=== PATIENT | female | born 1975 | race Caucasian/White ===

== ENCOUNTER 2021-08-19 20:43 | Inpatient (IN) ==
[2021-08-19] MEDS ORDERED: dexAMETHasone**PF** 10 MG/ML VIAL IV ONE (21:00)
[2021-08-19] MEDS ORDERED: IPRATROPIUM BROMIDE/ALBUTEROL respimat INH INH STA (21:00)
[2021-08-19] MEDS ORDERED: SODIUM CHLORIDE 0.9% 1000ML 2,000 ML IV ONE (21:00)
[2021-08-19] MEDS ORDERED: guaiFENesin 600 MG TABCR PO STA (21:02)
--- NOTE | 2021-08-19 21:14 | Emergency Department Note ---
Impression & Plan Pneumonia due to 2019-nCoV, Acute respiratory failure with hypoxia, Hypokalemia ED Provider Note NAME: ELIO ARNOLD AGE: 45 SEX: F ARRIVES VIA: Walk-In INFORMANT: Patient, ED PROVIDER(S): Korey Pena MD CHIEF COMPLAINT: Covid-19, shortness of breath. PLAN: Disposition: Admit MEDICAL DECISION MAKING: The patient is a pleasant 45-year-old woman with a past history of asthma and environmental allergies who presents to emergency department with worsening shortness of breath and generalized weakness with decreased appetite and oral intake in setting of being diagnosed with COVID-19 on Wednesday after developing symptoms on . She reports having frequent episodes of diarrhea but denies vomiting. 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 She is not vaccinated for Covid. On arrival the patient is ill-appearing, afebrile, hypoxic in the low 70s on room air and initially hypotensive in triage at 60s/30s but this improved upon arrival to the ED critical care bay when on the stretcher and was normal. Lungs with scant intermittent wheezes and rhonchi. She has central cyanosis with elizabeth-oral cyanosis. She has no significant increased work of breathing. Abdomen is benign. The patient was placed on oxy-mask with improvement in O2 saturation to low 90s. WBC, H/H and platelets limits. Chemistry without metabolic acidosis. Lactic acid 1.3, within normal limits. Potassium 2.8 with patient initiated. Electrolytes and LFTs otherwise unremarkable. Troponin negative/undetectable. B PRICING LEAD within limits. Lipase is not elevated. TSH is low at 0.283 but with free T4 within normal limits. COVID-19 was confirmed positive on PCR. EKG without overt acute ischemia. Chest x-ray demonstrates bilateral multifocal densities consistent with with multifocal pneumonia/COVID-19 pneumonia. This is further characterized on CTA of the chest per preliminary stat rad report. Note is made of an apparent filling defect of a segmental branch of the right upper lobe however suspected to be artifactual. Moreover, given the patient's troponin and BNP are not elevated unlikely to have clinically significant PE. Hypoxia is most likely related to the patient's COVID-19 pneumonia. Upon reevaluation the patient reported feeling somewhat improved after initial review with IV fluid patient and, Dex Methasone known, albuterol. However her O2 saturation was noted to drift down to the mid 80s at times and so she was placed on BiPAP with improvement in her oxygenation. Patient was in agreement with plan for admission. [facility]. Triage Nursing notes reviewed and agree them. Prior medical records reviewed Vital Signs: reviewed and remarkable for hypoxia. Differential diagnosis: Reactive airway disease, pneumonia, pneumothorax, COPD, CHF, infections, cardiac ischemia, pulmonary embolism, musculoskeletal, gastrointestinal, as well as other pathologies. ER treatment provided: See below. Diagnostics interpreted by me: ECG: Normal sinus rhythm, 85 bpm, no ectopy, no overt ST elevation or depress ion, QTC 476, QRS 88. Cardiac Monitoring: An order for continuous cardiac monitoring was placed and demonstrated normal sinus rhythm, 85 bpm, no ectopy. Laboratory studies: See below Imaging studies: CXR: Multifocal PNA per my preliminary review. STATRAD: Preliminary Findings Only See Final Report For Complete Findings CTA CHEST: No pulmonary embolus. An apparent filling defect of a segmental branch of the right upper lobe (series 4 image 163) is artifactual given the appearance of the reformats (series 400 image 48 and series 402 image 38). No aortic aneurysm or dissection. Diffuse bilateral airspace opacities most consistent with atypical infection. Bilateral hilar lymphadenopathy measures up to 0.8 cm, this is nonspecific but likely reactive. The heart size is within normal limits. No fracture. There is a small hiatal hernia. Radiologist: Mignon Lopez MD Study ready at 22:09 and initial results transmitted at 22:32 Consultation(s): Case was discussed with Dr. Anderson, [facility] hospitalist, who will evaluate the patient for admission. HPI: The patient is a pleasant 45-year-old woman with a past history of asthma and environmental allergies who presents to emergency department with worsening shortness of breath and generalized weakness with decreased appetite and oral intake in setting of being diagnosed with COVID-19 on Wednesday after developing symptoms on . She reports having frequent episodes of diarrhea but denies vomiting. 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 She is not vaccinated for Covid. ROS: See above HPI for pertinent positives & negatives. A total of 10 systems reviewed and were otherwise negative. PAST MEDICAL HISTORY:See Below PAST SURGICAL HISTORY:See Below FAMILY HISTORY:See Below SOCIAL HISTORY:See Below HOME MEDICATIONS:See Below ALLERGIES:See Below VITALS:See Below PHYSICAL EXAMINATION: GENERAL: Awake, alert, ill-appearing, in no distress HENT: Normocephalic, atraumatic. Oropharynx mucous membranes. Central cyanosis/perioral cyanosis. EYES: Normal conjunctiva. Sclera non-icteric. NECK: Supple. No nuchal rigidity. FROM. No JVD. RESPIRATORY: Scant intermittent wheezes and rhonchi. CARDIAC: Regular rate, normal rhythm. Extremities warm and well perfused. Pulses equal. ABDOMEN: Soft, non-distended. No tenderness to palpation. No rebound or guarding. No masses. RECTAL: Deferred. MUSCULOSKELETAL: Chest examination reveals no tenderness. The back is symmetrical on inspection without obvious abnormality. There is no CVA tendernes s to palpation. No joint edema. LOWER EXTREMITIES: Calves are equal size bilaterally and non-tender. No edema. No discoloration. NEURO: Normal sensorium. No sensory or motor deficits noted. SKIN: No rash or jaundice noted. ED Course: Critical Care: I have personally spent greater than 75 minutes of critical care time in the direct management of this patient. This includes bedside care, interpretation of diagnostic studies, and testing, discussion with consultants, patient, and family members, and other required patient management activities. This 75 mi nutes is in excess of all separately billable procedures. 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 Beliefs That Will Affect Care: None Current Living Situation: Spouse Other Information That Helps Us Care for You: No Feels Safe at Home: Yes Safety Concerns: Feels Safe At This Time Assistive Devices: Oxygen - Continuous Assistive Devices Comment: new due to current admition Allergies Allergies Allergy/AdvReac Type Severity Reaction Status Date / Time No Known Allergies Allergy Unknown Verified 08/19/21 21:35 cefuroxime AdvReac Mild HEADACHE Verified 08/19/21 21:35 Home Meds Home Medications Medication Instructions Recorded Confirmed albuterol sulfate 90 mcg/actuation 1 inh INHALATION Q4H PRN 08/19/21 08/19/21 aerosol inhaler (ProAir HFA) aspirin 81 mg tablet,delayed 81 mg PO QAM 08/19/21 08/19/21 release (Aspirin Low Dose) fluticasone furoate 100 1 inh INHALATION QAM 08/19/21 08/19/21 mcg-vilanterol 25 mcg/dose inhalation powder (Breo Ellipta) losartan 25 mg tablet (Cozaar) 25 mg PO QAM 08/19/21 08/19/21 omeprazole 20 mg tablet,delayed 20 mg PO QAM 08/19/21 08/19/21 release venlafaxine 75 mg capsule,extended 75 mg PO QAM 08/19/21 08/19/21 release 24 hr (Effexor XR) Results & Data (ED) Vital Signs Vital Signs - 24 hr 08/19/21 20:49 08/19/21 20:59 08/19/21 21:28 Temperature 36.6 C Temperature Source Temporal Artery Scan Pulse Rate 83 84 89 Pulse Rate from SpO2 Sensor 85 Respiratory Rate 20 35 H 39 H Respiratory Effort / Characteristics Non-Labored Respiratory Depth Normal Respiratory Pattern Regular Blood Pressure 61/30 L 132/80 Blood Pressure Mean 40 97 Pulse Oximetry 77 L 90 91 Oxygen Delivery Method Room Air Oxymask Oxygen Flow Rate 10 10 Fraction of Inspired Oxygen Sepsis Recent Fever Within 48 Hours No Sepsis New/Unexplained Change in Mental Status N/A Sepsis Action Taken by Nursing No Action Required Oxygen Flow Rate - Titration Pulse Oximetry Post Tiitration 08/19/21 22:02 08/19/21 22:31 08/19/21 22:43 Temperature Temperature Source Pulse Rate 94 H 95 H Pulse Rate from SpO2 Sensor 95 H 96 H Respiratory Rate 35 H 35 H Respiratory Effort / Characteristics Respiratory Depth Respiratory Pattern Blood Pressure 129/67 136/79 Blood Pressure Mean 87 98 Pulse Oximetry 93 92 90 Oxygen Delivery Method Oxymask Oxygen Flow Rate 10 10 10 Fraction of Inspired Oxygen Sepsis Recent Fever Within 48 Hours Sepsis New/Unexplained Change in Mental Status Sepsis Action Taken by Nursing Oxygen Flow Rate - Titration Pulse Oximetry Post Tiitration 08/19/21 22:59 08/19/21 23:00 08/19/21 23:30 Temperature Temperature Source Pulse Rate 91 H 91 H 103 H Pulse Rate from SpO2 Sensor 91 H 109 H Respiratory Rate 37 H 32 H 38 H Respiratory Effort / Characteristics Spontaneous Labored Short of Breath SOB on Exertion Respiratory Depth Shallow Respiratory Pattern Tachypnea Blood Pressure 120/68 126/79 Blood Pressure Mean 85 94 Pulse Oximetry 95 95 88 L Oxygen Delivery Method Oxymask Oxygen Flow Rate 10 Fraction of Inspired Oxygen 50 Sepsis Recent Fever Within 48 Hours Sepsis New/Unexplained Change in Mental Status Sepsis Action Taken by Nursing Oxygen Flow Rate - Titration 15 Pulse Oximetry Post Tiitration 91 Laboratory Data Attestation: I reviewed the patient's lab results. Result diagrams: 08/19/21 21:07 08/19/21 21:07 Lab Results 08/19/21 08/19/21 08/19/21 Range/Units 21:07 21:07 21:07 WBC 8.91 (4.8-10.8) K/uL RBC 4.97 (4.2-5.4) M/uL Hgb 12.2 (12.0-16.0) g/dL Hct 38.7 (37-47) % MCV 77.9 L (80-100) fL MCH 24.5 L (25-34) pg MCHC 31.5 L (32-36) g/dL RDW Std Deviation 42.6 (36.4-46.3) fL RDW Coeff of Patrica 14.9 H (11.5-14.5) % Plt Count 273 (130-400) K/uL MPV 9.6 (7.4-10.4) fL Immature Gran % (Auto) 0.2 % Neut % (Auto) 83.7 % Lymph % (Auto) 13.9 % Ashe % (Auto) 2.1 % Eos % (Auto) 0.0 % Baso % (Auto) 0.1 % Neut # (Auto) 7.45 H (1.4-6.5) K/uL Lymph # (Auto) 1.24 (1.2-3.4) K/uL Ashe # (Auto) 0.19 (0.11-0.59) K/uL Eos # (Auto) 0.00 (0-0.5) K/uL Baso # (Auto) 0.01 (0-0.2) K/uL Immature Gran # (Auto) 0.02 (0.00-0.02) K/uL PT 10.3 (9.0-12.0) Seconds INR 1.0 (0.9-1.1) APTT 36.4 H (21.0-31.0) Seconds PTT Ratio 1.4 Sodium 132 L (136-145) mmol/L Potassium 2.8 L (3.5-5.1) mmol/L Chloride 93 L (98-107) mmol/L Carbon Dioxide 31 (21-32) mmol/L Anion Gap 8.0 (3-11) BUN 6 L (7-18) mg/dl Creatinine 0.96 (0.6-1.2) mg/dl Est Cr Clr Drug Dosing 79.1 ml/min Est GFR ( Amer) 83.4 ml/min Est GFR (Non-Af Amer) 71.9 ml/min BUN/Creatinine Ratio 6.1 L (10-20) Glucose 123 H (70-99) mg/dl Lactate (0.4-2.0) mmol/L Calcium 8.5 (8.5-10.1) mg/dl Phosphorus 2.6 (2.5-4.9) mg/dl Magnesium 2.4 (1.8-2.4) mg/dl Total Bilirubin 0.3 (0.2-1) mg/dl Direct Bilirubin 0.1 (0-0.2) mg/dl AST 36 (15-37) U/L ALT 16 (12-78) U/L Alkaline Phosphatase 99 (45-117) U/L Troponin I < 0.015 (0-0.045) ng/ml NT-Pro-B Natriuret Pep 279 (0-450) pg/ml Total Protein 8.0 (6.4-8.2) gm/dl Albumin 3.0 L (3.4-5.0) gm/dl Globulin 5.0 H (2.5-4.0) gm/dl Albumin/Globulin Ratio 0.6 L (0.9-2) Lipase 338 (73-393) U/L TSH 0.283 L (0.300-4.500) uIu/ml Free T4 1.52 (0.8-1.6) ng/dl HCG, Qual (Negative) COVID-19 Eval Order SARS-CoV-2 (PCR) (Negative) 08/19/21 08/19/21 08/19/21 Range/Units 21:07 21:07 21:07 WBC (4.8-10.8) K/uL RBC (4.2-5.4) M/uL Hgb (12.0-16.0) g/dL Hct (37-47) % MCV (80-100) fL MCH (25-34) pg MCHC (32-36) g/dL RDW Std Deviation (36.4-46.3) fL RDW Coeff of Patrica (11.5-14.5) % Plt Count (130-400) K/uL MPV (7.4-10.4) fL Immature Gran % (Auto) % Neut % (Auto) % Lymph % (Auto) % Ashe % (Auto) % Eos % (Auto) % Baso % (Auto) % Neut # (Auto) (1.4-6.5) K/uL Lymph # (Auto) (1.2-3.4) K/uL Ashe # (Auto) (0.11-0.59) K/uL Eos # (Auto) (0-0.5) K/uL Baso # (Auto) (0-0.2) K/uL Immature Gran # (Auto) (0.00-0.02) K/uL PT (9.0-12.0) Seconds INR (0.9-1.1) APTT (21.0-31.0) Seconds PTT Ratio Sodium (136-145) mmol/L Potassium (3.5-5.1) mmol/L Chloride (98-107) mmol/L Carbon Dioxide (21-32) mmol/L Anion Gap (3-11) BUN (7-18) mg/dl Creatinine (0.6-1.2) mg/dl Est Cr Clr Drug Dosing ml/min Est GFR ( Amer) ml/min Est GFR (Non-Af Amer) ml/min BUN/Creatinine Ratio (10-20) Glucose (70-99) mg/dl Lactate 1.3 (0.4-2.0) mmol/L Calcium (8.5-10.1) mg/dl Phosphorus (2.5-4.9) mg/dl Magnesium (1.8-2.4) mg/dl Total Bilirubin (0.2-1) mg/dl Direct Bilirubin (0-0.2) mg/dl AST (15-37) U/L ALT (12-78) U/L Alkaline Phosphatase (45-117) U/L Troponin I (0-0.045) ng/ml NT-Pro-B Natriuret Pep (0-450) pg/ml Total Protein (6.4-8.2) gm/dl Albumin (3.4-5.0) gm/dl Globulin (2.5-4.0) gm/dl Albumin/Globulin Ratio (0.9-2) Lipase (73-393) U/L TSH (0.300-4.500) uIu/ml Free T4 (0.8-1.6) ng/dl HCG, Qual Negative (Negative) COVID-19 Eval Order Covid19 at [facility] SARS-CoV-2 (PCR) (Negative) 08/19/21 Range/Units 21:07 WBC (4.8-10.8) K/uL RBC (4.2-5.4) M/uL Hgb (12.0-16.0) g/dL Hct (37-47) % MCV (80-100) fL MCH (25-34) pg MCHC (32-36) g/dL RDW Std Deviation (36.4-46.3) fL RDW Coeff of Patrica (11.5-14.5) % Plt Count (130-400) K/uL MPV (7.4-10.4) fL Immature Gran % (Auto) % Neut % (Auto) % Lymph % (Auto) % Ashe % (Auto) % Eos % (Auto) % Baso % (Auto) % Neut # (Auto) (1.4-6.5) K/uL Lymph # (Auto) (1.2-3.4) K/uL Ashe # (Auto) (0.11-0.59) K/uL Eos # (Auto) (0-0.5) K/uL Baso # (Auto) (0-0.2) K/uL Immature Gran # (Auto) (0.00-0.02) K/uL PT (9.0-12.0) Seconds INR (0.9-1.1) APTT (21.0-31.0) Seconds PTT Ratio Sodium (136-145) mmol/L Potassium (3.5-5.1) mmol/L Chloride (98-107) mmol/L Carbon Dioxide (21-32) mmol/L Anion Gap (3-11) BUN (7-18) mg/dl Creatinine (0.6-1.2) mg/dl Est Cr Clr Drug Dosing ml/min Est GFR ( Amer) ml/min Est GFR (Non-Af Amer) ml/min BUN/Creatinine Ratio (10-20) Glucose (70-99) mg/dl Lactate (0.4-2.0) mmol/L Calcium (8.5-10.1) mg/dl Phosphorus (2.5-4.9) mg/dl Magnesium (1.8-2.4) mg/dl Total Bilirubin (0.2-1) mg/dl Direct Bilirubin (0-0.2) mg/dl AST (15-37) U/L ALT (12-78) U/L Alkaline Phosphatase (45-117) U/L Troponin I (0-0.045) ng/ml NT-Pro-B Natriuret Pep (0-450) pg/ml Total Protein (6.4-8.2) gm/dl Albumin (3.4-5.0) gm/dl Globulin (2.5-4.0) gm/dl Albumin/Globulin Ratio (0.9-2) Lipase (73-393) U/L TSH (0.300-4.500) uIu/ml Free T4 (0.8-1.6) ng/dl HCG, Qual (Negative) COVID-19 Eval Order SARS-CoV-2 (PCR) POSITIVE A* (Negative) Administered Medications Discontinued Medications Albuterol (Ipratropium [place]/Albuterol Respimat Inh) 2 puffs INH NOW STA Stop: 08/19/21 21:01 Last Admin: 08/19/21 21:12 Dose: 2 puffs Documented by: [id number] Dexamethasone Sodium Phosphate (DexamethasonePf 10 Mg/Ml Vial) 10 mg IV NOW ONE Stop: 08/19/21 21:01 Last Admin: 08/19/21 21:22 Dose: 10 mg Documented by: [id number] Guaifenesin (Guaifenesin 600 Mg Tabcr) 600 mg PO NOW STA Stop: 08/19/21 21:03 Last Admin: 08/19/21 21:11 Dose: 600 mg Documented by: [id number] Sodium Chloride (Nss 1000ml) 2,000 mls @ 999 mls/hr IV .Q2H1M ONE Stop: 08/19/21 23:00 Last Admin: 08/19/21 21:15 Dose: 999 mls/hr Documented by: [id number] Potassium Chloride (K Armaan / Wtr) 10 meq in 100 mls @ 100 mls/hr IV Q1H MARTINEZ Stop: 08/20/21 00:44 Last Admin: 08/20/21 00:24 Dose: 100 mls/hr Documented by: [id number] Infusion: 08/19/21 23:50 Dose: 100 mls/hr Documented by: [id number] Admin: 08/19/21 22:50 Dose: 100 mls/hr Documented by: [id number] Remdesivir 200 mg/ Sodium (Chloride) 250 mls @ 125 mls/hr IV ONE STA; Protocol Stop: 08/20/21 01:44 Last Admin: 08/20/21 00:38 Dose: 125 mls/hr Documented by: [id number] Ioversol (Optiray 320 125ml) 120 ml IV ONCE ONE Stop: 08/19/21 21:57 Last Admin: 08/19/21 21:57 Dose: 120 ml Documented by: [id number] Potassium Chloride (Potassium Chloride Crtab 20 Meq Tabcr) 40 meq PO NOW STA Stop: 08/19/21 23:46 Last Admin: 08/20/21 00:24 Dose: 40 meq Documented by: [id number] Discharge Plan Visit Data Chief Complaint: Shortness of Breath/Dyspnea Stated Complaint: SHORTNESS OF BREATH ED Provider: Korey Pena Discharge Problem: Pneumonia due to 2019-nCoV, Acute respiratory failure with hypoxia, Hypokalemia Patient Disposition: Admitted As Inpatient Discharge Instructions Interventions: ED Discharge Assessment Last Done: 08/20/21 02:03
[2021-08-19 21:18] LABS: Basophils # (auto) 0.01 K/uL (0-0.2); Basophils % (auto) 0.1 %; Hematocrit (blood only) 38.7 % (37-47); Hemoglobin 12.2 g/dL (12.0-16.0); Immature Granulocytes # (auto) 0.02 K/uL (0.00-0.02); Immature Granulocytes % (auto) 0.2 %; Lymphocytes # (auto) 1.24 K/uL (1.2-3.4); Lymphocytes % (auto) 13.9 %; Mean Corpuscular Hemoglobin 24.5 pg (25-34); Mean Corpuscular Hgb Conc 31.5 g/dL (32-36); Mean Corpuscular Volume 77.9 fL (80-100); Mean Platelet Volume 9.6 fL (7.4-10.4); Monocytes # (auto) 0.19 K/uL (0.11-0.59); Monocytes % (auto) 2.1 %; Neutrophils # (auto) 7.45 K/uL (1.4-6.5); Neutrophils % (auto) 83.7 %; Platelet Count 273 K/uL (130-400); RDW Coefficient of Variation 14.9 % (11.5-14.5); RDW Standard Deviation 42.6 fL (36.4-46.3); Red Blood Count 4.97 M/uL (4.2-5.4); White Blood Count 8.91 K/uL (4.8-10.8)
[2021-08-19 21:29] LABS: Partial Thromboplastin Ratio 1.4; Partial Thromboplastin Time 36.4 Seconds (21.0-31.0); Prothrombin Time 10.3 Seconds (9.0-12.0)
[2021-08-19 21:37] LABS: Alanine Aminotransferase 16 U/L (12-78); Aspartate Aminotransferase 36 U/L (15-37); BUN Creatinine Ratio 6.1 (10-20); Bilirubin Direct 0.1 mg/dl (0-0.2); Blood Urea Nitrogen 6 mg/dl (7-18); Calcium 8.5 mg/dl (8.5-10.1); Carbon Dioxide 31 mmol/L (21-32); Chloride 93 mmol/L (98-107); Creatinine Clr Calc Pharmacy 79.1 ml/min; Est GFR (African American) 83.4 ml/min; Est GFR (Non-African American) 71.9 ml/min; Glucose 123 mg/dl (70-99); Lipase 338 U/L (73-393); Magnesium 2.4 mg/dl (1.8-2.4); Potassium 2.8 mmol/L (3.5-5.1); Sodium 132 mmol/L (136-145)
[2021-08-19 21:40] LABS: Pregnancy Test, Serum Negative (Negative)
[2021-08-19 21:45] LABS: Albumin Globulin Ratio 0.6 (0.9-2); Alkaline Phosphatase 99 U/L (45-117); Bilirubin,Total 0.3 mg/dl (0.2-1); Phosphorus 2.6 mg/dl (2.5-4.9); Thyroid Stimulating Hormone 0.283 uIu/ml (0.300-4.500); Troponin I < 0.015 ng/ml (0-0.045)
[2021-08-19] MEDS ORDERED: OPTIRAY 320 125ml IV ONE (21:56)
[2021-08-19 21:58] LABS: T4 Free Thyroxine 1.52 ng/dl (0.8-1.6)
[2021-08-19] MEDS: POTASSIUM CHLORIDE / WTR 10 MEQ/100 ML PLCT IV SCH (22:50)
[2021-08-19 23:03] LABS: NT Pro B Type Natriuretic Pept 279 pg/ml (0-450)
[2021-08-19] MEDS ORDERED: REMDESIVIR 200 MG in SODIUM CHLORIDE 0.9% 210 ML IV STA (23:45)
[2021-08-19] MEDS ORDERED: POTASSIUM CHLORIDE CRTAB 20 MEQ TABCR PO STA (23:45)
[2021-08-19] MEDS ORDERED: POTASSIUM CHLORIDE / WTR 10 MEQ/100 ML PLCT IV STA (23:45)
[2021-08-20] MEDS: POTASSIUM CHLORIDE / WTR 10 MEQ/100 ML PLCT IV SCH ×5 (00:24→09:24)
--- NOTE | 2021-08-20 01:47 | History and Physical Report ---
DATE OF ADMISSION: 08/19/2021. CHIEF COMPLAINT: COVID pneumonia, acute respiratory distress. HISTORY OF PRESENT ILLNESS: This is a 45-year-old female with past medical history significant for allergic rhinitis, mitral regurgitation, GERD, asthma, comes because of shortness of breath. When she came to the ER, her blood pressure was low, 60/30s and she was 70% on room air, but right now she is placed on OxyMask and improvement in oxygen saturation to low 90s and blood pressure improved .currently she is on BiPAP. Saturating okay. CT chest showed no PE, but showed multifocal pneumonia. The patient says She started developing symptoms last Wednesday with fever and cough, initially diagnosed with COVID on Wednesday and last 2 days ago, she developed shortness of breath, which prompted her to come to the ER, also having fevers at home, body aches, weakness, poor appetite, loss of sense of smell and taste. Denies any headache, no neck pain, no back pain. Has no abdominal discomfort and but having diarrhea. Denies blood in stools or black stools. No leg pains. No swelling in the legs. Normal bladder movements. No hematuria. Has some congestion, but no runny nose, no sore throat. No blurred visions. ALLERGIES: CEFUROXIME. PAST MEDICAL HISTORY: As mentioned above. PAST SURGICAL HISTORY: , ligation of oviducts. MEDICATIONS: The patient is on albuterol 1 puff inhalation q. 4 hours p.r.n., aspirin 81 mg p.o. daily, Breo Ellipta one inhalation daily, Cozaar 25 mg p.o. daily, omeprazole 20 mg p.o. a.m., Effexor 75 mg p.o. daily. FAMILY HISTORY: Significant for mother has hypertension. Uncle has stroke. Paternal grandfather had colon cancer. Maternal grandfather has heart disorder. Paternal grandmother had CHF. SOCIAL HISTORY: . No smoking. Alcohol occasional. No drug use. REVIEW OF SYSTEMS: As per HPI. Rest of review systems is negative. PHYSICAL EXAMINATION: GENERAL: The patient is of moderate build, saturating okay on BiPAP. VITAL SIGNS: Temperature 36.6, pulse 91, respiratory rate 130s, blood pressure 136/79, oxygen 94% on BiPAP. HEENT: Head is atraumatic. Pupils equal, round and reactive to light. NECK: No JVD. No neck masses. CARDIOVASCULAR: S1 and S2 heard. Regular rate and rhythm. No murmurs. RESPIRATORY SYSTEM: Normal AP diameter. No accessory muscle use. Mild bilateral rales at the lower lobes. No obvious wheezing heard. ABDOMEN: Soft, bowel sounds present, nontender, no distention. CENTRAL NERVOUS SYSTEM: Cranial nerves II-XII grossly intact, nonfocal. EXTREMITIES: No edema, no erythema. LABORATORY DATA: WBC 8.9, hemoglobin 12.2, hematocrit 38.7, platelets 273. PT ____, INR 1, APTT 36.4. Sodium 132, potassium 2.8, chloride 93, CO2 31, BUN 6, creatinine 0.9, serum glucose 123, lactate 1.3, calcium 8.5, phosphorus 2.6, magnesium 2.4, total bilirubin 0.3, direct bilirubin 0.1, AST 36, ALT 36, alkaline phosphatase 99. Troponin I less than 0.015. BNP 279, lipase 338. TSH is 0.2, free T4 1.5. HCG qualitative negative. SARS-CoV-2 PCR positive. IMAGING DATA: CT of the chest, no PE. Multifocal pneumonia. Chest x-ray, multifocal pneumonia. EKG: Normal sinus rhythm, rate of 85 and no significant change was found. ASSESSMENT AND PLAN: This is a 45-year-old female who presents with acute respiratory failure secondary to COVID pneumonia. 1. Acute respiratory failure secondary to COVID pneumonia. The patient was saturating 70% on room air, and currently saturating okay on BiPAP. We will continue the BiPAP. The patient meets criteria for treatments with steroids and remdesivir. Already started on steroids in the ER. We will continue with IV Decadron and IV remdesivir. Follow remdesivir labs. Check CRP in a.m. and closely monitor in the tele floor. Consult pulmonary in the a.m. 2. Hypotension: When she came in, the patient was hypotensive, systolic blood pressure in 60s, currently improved. We will continue with IV fluids 100 mL per hour for 1 liter and monitor the blood pressure. 3. History of asthma: Continue Breo Ellipta, albuterol p.r.n. We will also place her on nebs around the clock and p.r.n. 4. Hypertension. Continue Cozaar. 5. GERD. Continue omeprazole. 6. History of depression: Continue venlafaxine. 7. Deep venous thrombosis prophylaxis: Lovenox. DISPOSITION: Closely monitor in the tele floor. Level 1 full code. Expect discharge home and follow with family doctor. Social service to help with discharge planning. Job ID: [id number] [email or web address]
[2021-08-20] MEDS ORDERED: ONDANSETRON INJ 2 MG/ML 2 ML VIAL IV PRN (02:02)
[2021-08-20] MEDS ORDERED: LEVALBUTEROL HCL 1.25 MG/3 ML NEB NEB PRN (02:02)
[2021-08-20] MEDS ORDERED: NITROGLYCERIN SL 0.4 MG/TAB TAB SL PRN (02:02)
[2021-08-20] MEDS ORDERED: ACETAMINOPHEN 325 MG TAB PO PRN (02:02)
[2021-08-20] MEDS ORDERED: XOPENEX/ATROVENT 1.25mg/0.5MG NEB COMBO NEB SCH (02:02)
[2021-08-20] MEDS ORDERED: SODIUM CHLORIDE 0.9% 1000ML 1,000 ML IV SCH (02:30)
[2021-08-20] MEDS ORDERED: ALBUTEROL HFA 8 GM INHALER INH PRN (02:34)
[2021-08-20] MEDS ORDERED: LORazepam 0.5 MG TAB PO STA (05:28)
[2021-08-20 05:52] LABS: Hematocrit (blood only) 35.9 % (37-47); Mean Corpuscular Hemoglobin 24.2 pg (25-34); Mean Corpuscular Hgb Conc 30.6 g/dL (32-36); Mean Corpuscular Volume 78.9 fL (80-100); Mean Platelet Volume 9.8 fL (7.4-10.4); Platelet Count 247 K/uL (130-400); RDW Coefficient of Variation 15.1 % (11.5-14.5); RDW Standard Deviation 43.5 fL (36.4-46.3); Red Blood Count 4.55 M/uL (4.2-5.4); White Blood Count 6.86 K/uL (4.8-10.8)
[2021-08-20] MEDS ORDERED: ENOXAPARIN INJ 40 MG/0.4 ML SYR SQ SCH (06:00)
[2021-08-20 06:32] LABS: Alanine Aminotransferase 13 U/L (12-78); Albumin Level 2.4 gm/dl (3.4-5.0); Alkaline Phosphatase 85 U/L (45-117); Aspartate Aminotransferase 36 U/L (15-37); BUN Creatinine Ratio 7.4 (10-20); Bilirubin Direct < 0.1 mg/dl (0-0.2); Bilirubin,Total 0.2 mg/dl (0.2-1); Blood Urea Nitrogen 5 mg/dl (7-18); Calcium 7.5 mg/dl (8.5-10.1); Carbon Dioxide 26 mmol/L (21-32); Chloride 108 mmol/L (98-107); Est GFR (African American) 123.3 ml/min; Est GFR (Non-African American) 106.4 ml/min; Glucose 145 mg/dl (70-99); Magnesium 2.2 mg/dl (1.8-2.4); Potassium 5.1 mmol/L (3.5-5.1); Sodium 138 mmol/L (136-145); Total Protein 6.7 gm/dl (6.4-8.2)
[2021-08-20 06:44] LABS: Basophils # (auto) 0.01 K/uL (0-0.2); Basophils % (auto) 0.1 %; Immature Granulocytes # (auto) 0.02 K/uL (0.00-0.02); Immature Granulocytes % (auto) 0.3 %; Lymphocytes # (auto) 0.36 K/uL (1.2-3.4); Lymphocytes % (auto) 5.2 %; Monocytes # (auto) 0.09 K/uL (0.11-0.59); Monocytes % (auto) 1.3 %; Neutrophils # (auto) 6.38 K/uL (1.4-6.5); Neutrophils % (auto) 93.1 %; RBC Morphology Unremarkable
[2021-08-20] MEDS: LEVALBUTEROL 1.25MG/0.5ML NEB INH SCH ×3 (07:17→19:36)
[2021-08-20] MEDS: IPRATROPIUM BROMIDE NEB SOLN 0.02% 2.5 ML VIAL INH SCH ×3 (07:17→19:36)
--- NOTE | 2021-08-20 08:06 | CT Scan Report ---
CT ANGIOGRAM OF THE CHEST CLINICAL HISTORY: PE COMPARISON STUDY: No previous studies for comparison. TECHNIQUE: Following the IV administration of 120 mL of Optiray, CT angiogram of the thorax was perfo rmed from the thoracic inlet to the lung bases utilizing the pulmonary embolus protocol. Images are r eviewed in the axial, sagittal, and coronal planes. IV contrast was administered without complication . MIP imaging was performed. A dose lowering technique was utilized adhering to the principles of AL LARY. CT DOSE: 508.78 mGycm FINDINGS: There is adequate opacification within main pulmonary artery. No acute pulmonary embolus is seen within main, lobar or segmental branches of pulmonary artery. Eval uation is slightly limited due to respiratory motion artifact. Main pulmonary artery is normal in [place] iber. No evidence of right heart strain. Heart is normal in size without pericardial effusion or coronary artery calcifications. There is no axillary, supra clavicle or internal mammary lymphadenopathy seen. Multiple prominent mediastinal lymph nodes are seen measuring up to 1.3 cm in subcarinal region. Anson led bilateral hilar lymph nodes also prominent measuring up to 1.0 cm in size, probably reactive. Visualized portion of thyroid gland shows no evidence of focal lesions. Large hiatal hernia is seen. Small area of increase attenuation within dependent portion of the hiata l hernia most likely representing ingested material. Thoracic aorta is normal in caliber. No evidence of dissection or aneurysmal dilatation. Tracheobronchial tree is patent. Extensive bilateral mixed airspace and groundglass opacities are seen predominantly in peripheral dis tribution could represent atypical pneumonia/Covid. No pleural effusion is seen. Limited evaluation of upper abdominal viscera shows no acute abnormalities. Osseous structures: Mild degenerative changes of the spine. IMPRESSION: 1. No evidence of pulmonary embolus. No secondary signs of pulmonary embolus. 2. Extensive patchy airspace opacities throughout bilateral lungs could represent atypical pneumonia /Covid. 3. Large hiatal hernia. 4. The rest of findings as above. ACT 112: Negative or not required by law. The above report was generated using voice recognition software. It may contain grammatical, syntax o r spelling errors. Electronically signed by: Shahida Koo DO 08/20/2021 8:04 AM
--- NOTE | 2021-08-20 08:18 | XRay Report ---
XR chest 1V portable INDICATION: MN ^Y ^Chest Pain . TECHNIQUE: Single frontal radiograph of the chest was obtained. Comparison: Comparison is made to chest one view 04/10/2013 FINDINGS: No lines and tubes are seen. The cardiomediastinal silhouette is normal. Bilateral lower lung predomi nant airspace opacities are seen. No evidence of pleural effusion or pneumothorax. IMPRESSION: Bilateral airspace opacities which may represent atelectasis, pneumonia, and/or aspiration. ACT 112: Negative or not required by law. Electronically signed by: Ryan Ortiz M.D. 08/20/2021 8:17 AM
--- NOTE | 2021-08-20 08:34 | Electrocardiogram Report ---
Test Reason : Blood Pressure : / mmHG Vent. Rate : 085 BPM Atrial Rate : 085 BPM P-R Int : 126 ms QRS Dur : 088 ms QT Int : 400 ms P-R-T Axes : 040 019 016 degrees QTc Int : 476 ms Normal sinus rhythm Normal ECG When compared with ECG of 20-APR-2013 03:21, No significant change was found Confirmed by Bruce Milligan ([id number]) on 08/20/2021 8:33:23 AM Referred By: REFERRED SELF Confirmed By:Bruce Milligan
[2021-08-20] MEDS ORDERED: dexAMETHasone 6 MG in SYRINGE 0 ML IV SCH (09:00)
[2021-08-20] MEDS: FLUTICASONE/VILANTEROL 100/25MCG 14 PUFFS/INHALER INH SCH (09:59)
[2021-08-20] MEDS: LOSARTAN POTASSIUM 25 MG TAB PO SCH (10:00)
[2021-08-20] MEDS: PANTOprazole 40 MG TAB PO SCH (10:01)
[2021-08-20] MEDS: ASPIRIN 81 MG ECTAB PO SCH (10:01)
[2021-08-20] MEDS: dexAMETHasone 10 MG in SYRINGE 0 ML IV SCH (10:53)
[2021-08-20] MEDS: VENLAFAXINE HCL XR 75 MG CAPXR PO SCH (10:53)
--- NOTE | 2021-08-20 18:41 | XRay Report ---
XR chest 1V portable CLINICAL HISTORY: COVID, Hypoxia COMPARISON STUDY: Chest radiograph and chest CT August 19, 2021. FINDINGS: A hiatal hernia is again noted. There is no pneumothorax or pleural effusion. Cardiac media stinal silhouette is stable. Extensive bilateral airspace opacities are similar to prior chest CT and chest radiograph. IMPRESSION: No significant change in extensive bilateral airspace opacities consistent with viral pn eumonia. ACT 112: Negative or not required by law. Electronically signed by: Sb Galindo M.D. 08/20/2021 6:40 PM
[2021-08-20] MEDS ORDERED: FUROSEMIDE 40 MG in SYRINGE 0 ML IV ONE (19:30)
[2021-08-20] MEDS: REMDESIVIR 100 MG in SODIUM CHLORIDE 0.9% 230 ML IV SCH (20:13)
[2021-08-20 20:31] LABS: iSTAT Allen Test Pass; iSTAT Art Bld Gas pCO2 Correct 34 mmHg (35-46); iSTAT Art Bld Gas pH Corrected 7.426 (7.35-7.45); iSTAT Arterial Blood Gas HCO3 22 meg/L (19-24); iSTAT Arterial Blood Gas pCO2 34 mmHg (35-46); iSTAT Arterial Blood Gas pH 7.43 (7.35-7.45); iSTAT Arterial Blood Gas pO2 57 mmHg (80-95); iSTAT Arterial Blood Gas pO2 C 57; iSTAT Carbon Dioxide 23 mmol/L (24-31); iSTAT FiO2 65 %; iSTAT Hematocrit 35 % (37-47); iSTAT Hemoglobin 11.9 g/dl (12.0-16.0); iSTAT Potassium 3.8 mmol/L (3.3-5.0); iSTAT Site L Radial; iSTAT Sodium 138 mmol/L (135-144)
[2021-08-20] MEDS ORDERED: LORazepam 1 MG/2 ML VIAL IV STA (20:38)
--- NOTE | 2021-08-20 20:59 | Pulmonary Consultation ---
Date of Consultation August 20, 2021 Assessment & Plan (1) Pneumonia due to 2019-nCoV: (2) Acute respiratory failure with hypoxia: (3) Asthma: (4) Anxiety: (5) DVT prophylaxis: Attending: Dr. Ridley Is a 45-year-old female with a history of hypertension, asthma, anxiety, GERD. She presents with a 1 week history of symptoms for Covid. She is and lives with her 2 children. Both her as well as her 2 daughters are Covid positive. Patient admitted yesterday for increasing shortness of breath. Throughout the day today, patient has become more tachypneic and requires higher level of supplemental oxygen. Patient is a full code and desires full resuscitation level 1 Recommendations: 1. Covid pneumonia: * Increase daily dexamethasone from 6 mg to 10 mg IV * Continue with remdesivir * Patient appears to be somewhat fluid overloaded on exam. * Will discontinue IV fluids * Give single dose of furosemide 40 mg IV * Insert Ott catheter for strict I's and O's * Maintain negative fluid balance * Continue to encourage self proning * Agree with high flow during the day as needed but would prefer BiPAP. * Continue BiPAP at night * Long discussion with patient's Louie as well as with patient about possibility of endotracheal intubation with mechanical ventilation. Both the and the patient are in favor of mechanical ventilation if needed. Repeat chest x-ray this evening shows some improvement. Arterial blood gas shows hypoxia but no elevation of pH or PCO2. Continue to monitor with low th reshold for mechanical ventilation 2. Anxiety: * Shortness of breath and respiratory distress certainly contributing to anxiety which is consequently contributed further shortness of breath and distress. * We will give the patient 1 mg of IV lorazepam now and then half a milligram every 4 hours as needed for anxiety and agitation. * Continue venlafaxine 3. Asthma: * No significant bronchospasm on exam * Continue leave albuterol/ipratropium nebulizer treatments * Continue fluticasone/Vilanterol (Brio Ellipta) (ICS/LABA) * Monitor for acute exacerbation 4. DVT prophylaxis: * Patient on enoxaparin 40 mg subcutaneously every 24 hours * Suggest increasing to enoxaparin 40 mg every 12 hours in light of hypercoagulability due to Covid pneumonia Thank you for including us in the care of this patient. Please refer to Dr. Ridley's addendum for further recommendations and corrections Supervising Physician Co-Signing Physician Notes I saw and evaluated the patient with Louie Noland, and agree with findings and plan as documented in the note. 45-year-old female with history of asthma admitted to the hospital COVID-19 pneumonia Patient's CAT scan does show significant infiltrates bilaterally especially in the lower lobes Patient was hypotensive when she came in she got IV fluids Would recommend using IV fluids if the blood pressure is stable We will give 1 dose of Lasix keep the patient negative balance I will increase dexamethasone to 10 mg on a daily basis CPAP nightly and as needed shortness of breath Awake proning will be beneficial for the patient Continue with remdesivir. Need to have a very close monitoring patient might end up in the ICU. Please note the above document was generated using voice recognition software. It may contain grammatical, syntax or spelling errors.Any formal questions or concerns about the content, text or information contained within the body of this dictation should be directly addressed to the provider for clarification. History of Present Illness Reason for Consultation: COVID with Acute Pneumonia, hypoxia Attending Physician: Felipa Perry MD History of Present Illness Attending: Dr. Ridley This is a 45-year-old female with a past medical history significant for hypertension, GERD, asthma. She has no past tobacco abuse history. She does not use any illicit substances. She is a digital imaging specialist. Patient reports that she began having symptoms approximately 1 week ago. Her as well as her 2 children age 16 and 13 also are Covid positive. Yesterday the patient began having worsening shortness of breath and presented for evaluation treatment. She received dexamethasone and remdesivir and was placed in isolation. She has been having increasing oxygen requirements and was on high flow supplemental oxygen throughout the day. As the day progressed the patient became more tachypneic and was ultimately placed on BiPAP at 10/6. Patient is alert and oriented. She denies any chest pain. She denies any nausea or vomiting. She has no headache. She does have loss of smell and taste. She has been afebrile since admission. She has been on IV fluids. These have subsequently been stopped and I gave her 40 mg of furosemide and had a Ott catheter inserted. She has been anticoagulated with enoxaparin 40 mg subcu every 24 hours. She has no pleuritic chest pain. Aside from respiratory distress, she has no other acute complaints. Allergies Allergy/AdvReac Type Severity Reaction Status Date / Time No Known Allergies Allergy Unknown Verified 08/19/21 21:35 cefuroxime AdvReac Mild HEADACHE Verified 08/19/21 21:35 Home Medications Medication Instructions Recorded Confirmed Type albuterol sulfate 90 mcg/actuation 1 inh INHALATION Q4H PRN 08/19/21 08/19/21 History aerosol inhaler (ProAir HFA) aspirin 81 mg tablet,delayed 81 mg PO QAM 08/19/21 08/19/21 History release (Aspirin Low Dose) fluticasone furoate 100 1 inh INHALATION QAM 08/19/21 08/19/21 History mcg-vilanterol 25 mcg/dose inhalation powder (Breo Ellipta) losartan 25 mg tablet (Cozaar) 25 mg PO QAM 08/19/21 08/19/21 History omeprazole 20 mg tablet,delayed 20 mg PO QAM 08/19/21 08/19/21 History release venlafaxine 75 mg capsule,extended 75 mg PO QAM 08/19/21 08/19/21 History release 24 hr (Effexor XR) Patient History Medical History (Updated 08/20/21 @ 21:10 by Louie Noland PA-C) Anxiety (04/20/13) Asthma Asthma (04/20/13) Mitral valve prolapse (04/20/13) Seasonal allergies Surgical History (Updated 08/20/21 @ 21:08 by Louie Noland PA-C) Previous section (04/20/13) Family History Other Family history non-contributory Social History Smoking Status: Never smoker Second Hand Exposure: No; Do You Dip or Chew Tobacco: No; Tobacco Cessation Education Requested by Patient: No Hx Alcohol Use: Yes Alcohol type: beer and wine Hx Substance Use: No Preferred Language: Khmer Communication Ability: Effective Hot Wort Settler Required: No Beliefs That Will Affect Care: None marital status: Current Living Situation: Spouse How many Children do You have: 2 Other Information That Helps Us Care for You: No Feels Safe at Home: Yes Safety Concerns: Feels Safe At This Time Assistive Devices: Oxygen - Continuous Assistive Devices Comment: new due to current admition Review of Systems Review of Systems: All systems reviewed & are unremarkable except as noted in Subjective Physical Exam Physical Exam: GENERAL : Moderate distress with use of accessory muscles for breathing as well as tachypnea EYES: No icterus, gaze conjugate NOSE: No evidence of epistaxis MOUTH: No lesions or candidiasis NECK: Supple LUNGS: Bibasilar crackles. No bronchospasm or rhonchi HEART: Regular, rate controlled in the 80s. No evidence of arrhythmia ABDOMEN: Soft, NT, ND, BS Present EXTREMITIES: No LE edema, pedal pulses intact and equal bilaterally NEURO: A&OX3 Results & Data Results & Data ([facility]) Vital Signs (Past 12 Hours) Vital Signs Temp Pulse Pulse Pulse Resp BP Pulse Ox 08/20/21 19:46 88 88 37 H 93 08/20/21 19:10 36.8 C 93 H 20 124/82 89 L 08/20/21 18:00 92 H 08/20/21 17:25 93 H 36 H 92 08/20/21 15:23 36.9 C 91 H 22 115/75 96 08/20/21 15:18 90 34 H 91 08/20/21 13:44 92 H 30 H 86 L 08/20/21 11:13 36.9 C 91 H 20 117/79 88 L 08/20/21 11:05 91 H 34 H 90 08/20/21 10:00 90 Laboratory Results 08/20/21 05:23 08/20/21 05:23 Diagnostic Findings Chest X-Ray 08/19/21 21:00 XR chest 1V portable INDICATION: MN ^Y ^Chest Pain . TECHNIQUE: Single frontal radiograph of the chest was obtained. Comparison: Comparison is made to chest one view 04/10/2013 FINDINGS: No lines and tubes are seen. The cardiomediastinal silhouette is normal. Bilateral lower lung predominant airspace opacities are seen. No evidence of pleural effusion or pneumothorax. IMPRESSION: Bilateral airspace opacities which may represent atelectasis, pneumonia, and/or aspiration. ACT 112: Negative or not required by law. Electronically signed by: Ryan Ortiz M.D. 08/20/2021 8:17 AM Chest CTA 08/19/21 21:02 CT ANGIOGRAM OF THE CHEST CLINICAL HISTORY: PE COMPARISON STUDY: No previous studies for comparison. TECHNIQUE: Following the IV administration of 120 mL of Optiray, CT angiogram of the thorax was performed from the thoracic inlet to the lung bases utilizing the pulmonary embolus protocol. Images are reviewed in the axial, sagittal, and coronal planes. IV contrast was administered without complication. MIP imaging was performed. A dose lowering technique was utilized adhering to the principles of ALARA. CT DOSE: 508.78 mGycm FINDINGS: There is adequate opacification within main pulmonary artery. No acute pulmonary embolus is seen within main, lobar or segmental branches of pulmonary artery. Evaluation is slightly limited due to respiratory motion artifact. Main pulmonary artery is normal in caliber. No evidence of right heart strain. Heart is normal in size without pericardial effusion or coronary artery calcifications. There is no axillary, supra clavicle or internal mammary lymphadenopathy seen. Multiple prominent mediastinal lymph nodes are seen measuring up to 1.3 cm in subcarinal region. Mottled bilateral hilar lymph nodes also prominent measuring up to 1.0 cm in size, probably reactive. Visualized portion of thyroid gland shows no evidence of focal lesions. Large hiatal hernia is seen. Small area of increase attenuation within dependent portion of the hiatal hernia most likely representing ingested material. Thoracic aorta is normal in caliber. No evidence of dissection or aneurysmal dilatation. Tracheobronchial tree is patent. Extensive bilateral mixed airspace and groundglass opacities are seen predomina ntly in peripheral distribution could represent atypical pneumonia/Covid. No pleural effusion is seen. Limited evaluation of upper abdominal viscera shows no acute abnormalities. Osseous structures: Mild degenerative changes of the spine. IMPRESSION: 1. No evidence of pulmonary embolus. No secondary signs of pulmonary embolus. 2. Extensive patchy airspace opacities throughout bilateral lungs could represent atypical pneumonia/Covid. 3. Large hiatal hernia. 4. The rest of findings as above. ACT 112: Negative or not required by law. The above report was generated using voice recognition software. It may contain grammatical, syntax or spelling errors. Electronically signed by: Shahida Koo DO 08/20/2021 8:04 AM Chest X-Ray 08/20/21 18:16 XR chest 1V portable CLINICAL HISTORY: COVID, Hypoxia COMPARISON STUDY: Chest radiograph and chest CT August 19, 2021. FINDINGS: A hiatal hernia is again noted. There is no pneumothorax or pleural effusion. Cardiac mediastinal silhouette is stable. Extensive bilateral airspace opacities are similar to prior chest CT and chest radiograph. IMPRESSION: No significant change in extensive bilateral airspace opacities consistent with viral pneumonia. ACT 112: Negative or not required by law. Electronically signed by: Sb Galindo M.D. 08/20/2021 6:40 PM PG Care Time/CCT Total # of Minutes Spent Total Time Spent with Patient: Total time spent is greater than 50% in coordination of care (as documented) at patient's floor/unit and/or counseling patient:60 Coding Level of Care Code 77126 Initial Inpt Care Lvl 3 Diagnoses Pneumonia due to 2019-nCoV U07.1; J12.82 Acute respiratory failure with hypoxia J96.01 Asthma J45.909 Anxiety F41.9 DVT prophylaxis Z29.9 Time Spent (min) 60
[2021-08-20] MEDS: SODIUM CHLORIDE 0.9% 10ML FLUSH IV SCH (21:48)
[2021-08-20] MEDS: ENOXAPARIN INJ 40 MG/0.4 ML SYR SQ SCH (21:49)
[2021-08-21] MEDS: IPRATROPIUM BROMIDE NEB SOLN 0.02% 2.5 ML VIAL INH SCH ×4 (00:28→19:14)
[2021-08-21] MEDS: LEVALBUTEROL 1.25MG/0.5ML NEB INH SCH ×4 (00:29→19:14)
[2021-08-21 06:22] LABS: Basophils # (auto) 0.01 K/uL (0-0.2); Basophils % (auto) 0.1 %; Hemoglobin 11.3 g/dL (12.0-16.0); Immature Granulocytes # (auto) 0.03 K/uL (0.00-0.02); Immature Granulocytes % (auto) 0.3 %; Lymphocytes # (auto) 0.73 K/uL (1.2-3.4); Lymphocytes % (auto) 6.4 %; Mean Corpuscular Hemoglobin 24.5 pg (25-34); Mean Corpuscular Hgb Conc 30.5 g/dL (32-36); Mean Corpuscular Volume 80.1 fL (80-100); Mean Platelet Volume 10.4 fL (7.4-10.4); Monocytes # (auto) 0.48 K/uL (0.11-0.59); Monocytes % (auto) 4.2 %; Neutrophils # (auto) 10.11 K/uL (1.4-6.5); Platelet Count 332 K/uL (130-400); RDW Coefficient of Variation 15.5 % (11.5-14.5); RDW Standard Deviation 45.7 fL (36.4-46.3); Red Blood Count 4.62 M/uL (4.2-5.4); White Blood Count 11.36 K/uL (4.8-10.8)
[2021-08-21 07:01] LABS: BUN Creatinine Ratio 22.6 (10-20); C Reactive Protein 17.1 mg/dl (0-0.29); Creatinine Clr Calc Pharmacy 107.7 ml/min; Est GFR (Non-African American) 101.9 ml/min
[2021-08-21] MEDS: LORazepam 0.5 MG/1 ML VIAL IV PRN ×4 (07:27→22:36)
[2021-08-21] MEDS: dexAMETHasone 10 MG in SYRINGE 0 ML IV SCH (10:32)
[2021-08-21] MEDS: ENOXAPARIN INJ 40 MG/0.4 ML SYR SQ SCH ×2 (10:36→19:57)
[2021-08-21] MEDS: FLUTICASONE/VILANTEROL 100/25MCG 14 PUFFS/INHALER INH SCH (10:38)
[2021-08-21] MEDS: LOSARTAN POTASSIUM 25 MG TAB PO SCH (10:43)
[2021-08-21] MEDS: VENLAFAXINE HCL XR 75 MG CAPXR PO SCH (10:43)
[2021-08-21] MEDS: ASPIRIN 81 MG ECTAB PO SCH (10:43)
[2021-08-21] MEDS: PANTOprazole 40 MG TAB PO SCH (10:43)
--- NOTE | 2021-08-21 14:04 | Hospitalist Progress Note ---
Date of Service August 21, 2021 Assessment & Plan (1) Pneumonia due to 2019-nCoV: Plan: 1. Acute hypoxic respiratory failure COVID-19 positive test (U07.1, COVID-19) with Acute Pneumonia (J12.89, Other viral pneumonia) (If respiratory failure or sepsis present, add as separate assessment) Today patient is awake and alert. Currently remains on the BiPAP. Saturating well. Hemodynamically doing fine. Patient remains afebrile. WBC of 11.36. CRP of 25.8 on admission. Appreciate pulmonary medicine input. Continue remdesivir/high dose of Decadron. Continue Lovenox 40 mg twice daily. Encourage proning. Continue fluticasone/Vilanterol (Brio Ellipta) (ICS/LABA). 2. Hypotension: reolved 3. History of asthma: Continue Breo Ellipta, albuterol p.r.n. 4. Hypertension. Continue Cozaar. 5. GERD. Continue omeprazole. 6. History of depression: Continue venlafaxine. 7. Deep venous thrombosis prophylaxis: Lovenox. (2) Acute respiratory failure with hypoxia: (3) Asthma: Admission and Anticipated Discharge Date Admission Date: August 19, 2021 Subjective Patient was awake and alert. Was on the BiPAP. Denies any shortness of breath. Does have intermittent cough reports she has diarrhea appetite is decreased. Denies any nausea or vomiting. Denies any chest pain, abdominal pain or dysuria. Review of Systems Review of Systems: All systems reviewed & are unremarkable except as noted in HPI & below Physical Exam Physical Exam: General: A&Ox3, on BiPAP HENT: NCAT, MMM, EOMI Eyes: PERRLA Neck: Supple, normal range of motion CVS: normal rate and rhythm Resp: b/l good airway Abdomen: Soft, ND/NT Extremities: No c/c/e Neuro: face symmetric, strength grossly equal, no focal deficit Skin: warm and dry, no rashes/lesions/errythema MSK: normal ROM, no joint swelling/erythema Results & Data Results & Data ([facility]) Vital Signs (Past 12 Hours) Vital Signs Temp Pulse Pulse Resp BP Pulse Ox 08/21/21 13:13 97 H 34 H 94 08/21/21 08:55 97 H 08/21/21 07:04 96 H 97 H 38 H 94 08/21/21 03:15 88 36 H 93 08/21/21 03:04 37.0 C 95 H 37 H 111/79 94
--- NOTE | 2021-08-21 14:30 | Pulmonology Progress Note ---
Date of Service August 21, 2021 Assessment & Plan (1) Pneumonia due to 2019-nCoV: (2) Acute respiratory failure with hypoxia: (3) Asthma: (4) Anxiety: (5) DVT prophylaxis: Plan: Attending: Dr. Ridley Is a 45-year-old female with a history of hypertension, asthma, anxiety, GERD. She presents with a 1 week history of symptoms for Covid. She is and lives with her 2 children. Both her as well as her 2 daughters are Covid positive. Patient admitted yesterday for increasing shortness of breath. Throughout the day today, patient has become more tachypneic and requires higher level of supplemental oxygen. Patient is a full code and desires full resuscitation level 1 Recommendations: 1. Covid pneumonia: * Continue with dexamethasone for total of 10 days * Continue with remdesivir * Maintain negative fluid balance * Continue to encourage self proning * Agree with high flow during the day as needed but would prefer BiPAP. * Continue BiPAP at night Continue with O2 supplementation to keep oxygen saturation between 90-92%. Awake proning will be helpful Continue with incentive spirometry Continue with flutter valve. Recommend patient to be kept euvolemic to negative balance 2. Anxiety: * Shortness of breath and respiratory distress certainly contributing to anxiety which is consequently contributed further shortness of breath and distress. * Continue venlafaxine 3. Asthma: * No significant bronchospasm on exam * Continue leave albuterol/ipratropium nebulizer treatments * Continue fluticasone/Vilanterol (Brio Ellipta) (ICS/LABA) * Monitor for acute exacerbation Plan: In/out: -3.1 L, urine output 3853 Continue with diuresis to keep the patient negative balance I do think patient's anxiety is playing a role especially when she is on BiPAP to drive her tachypnea Continue with high flow and gradually titrate down the FiO2 to goal SPO2 88-92% Encourage patient to use incentive spirometry Precedex could be thought of in her case but she will need close monitoring if we do use it I did give heads up to the ICU as well in case if there is any worsening she might need intubation I spoke with the patient regarding intubation and she is agreeable to it if need be Please note the above document was generated using voice recognition software. It may contain grammatical, syntax or spelling errors.Any formal questions or concerns about the content, text or information contained within the body of this dictation should be directly addressed to the provider for clarification. Admission and Anticipated Discharge Date Admission Date: August 19, 2021 Subjective Patient seen and examined at bedside. Patient was breathing in the low 30s when I saw her. She saturation was 94% on 80% FiO2 60 L I went down to 70 by then she was still saturating 90% I did explain her to try to take still and deep breaths which did decrease her respiratory rate down to intermittent to high 20s. I explained to her how to use incentive spirometry as well as flutter valve Denies any hemoptysis. Urinating well Review of Systems Review of Systems: All systems reviewed & are unremarkable except as noted in Subjective Physical Exam Physical Exam: Constitutional: In respiratory distress HEENT: EOMI, PERRLA Respiratory system: Decreased air entry bilaterally, no wheeze, rhonchi, positive crackles bilateral lower lobes CVS: S1-S2 positive, no murmurs or gallops Abdomen: Soft, nontender, nondistended, positive bowel sounds x4 Extremities: +2 pulses bilaterally radialis/ dorsalis pedis, no cyanosis, no edema Neuro: Awake alert oriented x3 Psych: Normal mood and affect G/U: Positive Ott Skin: no rashes, warm and dry Lymphatic: no cervical or axillary lymphadenopathy Results & Data Results & Data ([facility]) Vital Signs (Past 12 Hours) Vital Signs Temp Pulse Pulse Resp BP Pulse Ox 08/21/21 14:04 90 36 H 93 08/21/21 13:13 97 H 34 H 94 08/21/21 08:55 97 H 08/21/21 07:04 96 H 97 H 38 H 94 08/21/21 03:15 88 36 H 93 08/21/21 03:04 37.0 C 95 H 37 H 111/79 94 08/21/21 05:31 08/21/21 05:31 PG Care Time/CCT Total # of Minutes Spent Total Time Spent with Patient: Total time spent is greater than 50% in coordination of care (as documented) at patient's floor/unit and/or counseling patient: Coding Level of Care Code 13728 Subseq Hosp Care Lvl 3 Diagnoses Pneumonia due to 2019-nCoV U07.1; J12.82 Acute respiratory failure with hypoxia J96.01 Asthma J45.909 Anxiety F41.9 DVT prophylaxis Z29.9
[2021-08-21] MEDS: SODIUM CHLORIDE 0.9% 10ML FLUSH IV SCH (19:57)
[2021-08-21] MEDS: REMDESIVIR 100 MG in SODIUM CHLORIDE 0.9% 230 ML IV SCH (19:58)
[2021-08-22] MEDS: LEVALBUTEROL 1.25MG/0.5ML NEB INH SCH ×4 (00:37→19:25)
[2021-08-22] MEDS: IPRATROPIUM BROMIDE NEB SOLN 0.02% 2.5 ML VIAL INH SCH ×4 (00:37→19:25)
[2021-08-22] MEDS: dexAMETHasone 10 MG in SYRINGE 0 ML IV SCH (07:35)
[2021-08-22] MEDS: ENOXAPARIN INJ 40 MG/0.4 ML SYR SQ SCH ×2 (07:35→20:15)
[2021-08-22] MEDS: LORazepam 0.5 MG/1 ML VIAL IV PRN (07:35)
[2021-08-22 07:53] LABS: BUN Creatinine Ratio 28.1 (10-20); Calcium 8.2 mg/dl (8.5-10.1); Creatinine Clr Calc Pharmacy 117.2 ml/min; Est GFR (African American) 123.9 ml/min; Est GFR (Non-African American) 106.9 ml/min; Potassium 3.8 mmol/L (3.5-5.1)
[2021-08-22] MEDS ORDERED: STAT IV Infusion **Titration per Protocol STA ×5 (08:35→14:24)
--- NOTE | 2021-08-22 08:35 | Critical Care Consultation ---
Date of Consultation August 22, 2021 Assessment & Plan (1) Pneumonia due to 2019-nCoV: Reason Critically Ill: 45-year-old female with acute hypoxic respiratory failure PLAN: Neuro: Sedation: -Versed and fentanyl Neuromuscular blockade -Cis atracurium Anxiety: * Attempted Precedex to facilitate noninvasive ventilation: This was not adequate * Continue venlafaxine Resp: Covid pneumonia: * Continue with dexamethasone for total of 10 days * Continue with remdesivir * Maintain negative fluid balance * High PEEP low FiO2 tables -Patient's peak airway pressures were elevated proceeding with neuromuscular blockade Asthma: * No significant bronchospasm on exam * Continue leave albuterol/ipratropium nebulizer treatments Fluids/Renal: Maintain negative fluid balance -20 mg Lasix this morning ID: Covid pneumonia GI/Nutrition: Trickle tube feeds Heme: DVT prophylaxis: Lovenox 40 mg twice daily Endocrine: ICU hyperglycemia protocol Vascular access: Right subclavian placed 08/22, left arterial line placed 08/22 Code Status: Full Disposition: ICU Point of contact patient's : Louie: [phone] -I have updated the patient's regarding status and prognosis. (2) Acute respiratory failure with hypoxia: (3) Asthma: (4) Anxiety: (5) DVT prophylaxis: Supervising Physician Co-Signing Physician Notes I have personally spent 70 minutes of critical care time in the direct management of this patient. This is a life/limb threatening event. This includes time spent evaluating patient, direct bedside care, chart review, placing orders, interpretation of diagnostic studies, discussion with consultants, patient, and/or family members regarding treatment decisions, as well as other required patient management activities. This time is exclusive of all separately billable procedures, and teaching time and separate from and in addition to any other critical care service time. History of Present Illness Reason for Consultation: Acute hypoxic respiratory failure in the setting COVID- 19 pneumonia Requesting Physician: Lizeth Holder Attending Physician: Lizeth Holder, History of Present Illness Patient is a 45-year-old female who presented on August 19 with approximately 1 weeks of Covid symptoms who had become increasingly short of breath who was admitted to the hospital for oxygen requirements which continued to increase. During my evaluation the patient is disoriented not able to maintain BiPAP and rapidly desaturates and has prolonged recovery periods necessitating intubation. Allergies Allergy/AdvReac Type Severity Reaction Status Date / Time No Known Allergies Allergy Unknown Verified 08/19/21 21:35 cefuroxime AdvReac Mild HEADACHE Verified 08/19/21 21:35 Home Medications Medication Instructions Recorded Confirmed Type albuterol sulfate 90 mcg/actuation 1 inh INHALATION Q4H PRN 08/19/21 08/19/21 History aerosol inhaler (ProAir HFA) aspirin 81 mg tablet,delayed 81 mg PO QAM 08/19/21 08/19/21 History release (Aspirin Low Dose) fluticasone furoate 100 1 inh INHALATION QAM 08/19/21 08/19/21 History mcg-vilanterol 25 mcg/dose inhalation powder (Breo Ellipta) losartan 25 mg tablet (Cozaar) 25 mg PO QAM 08/19/21 08/19/21 History omeprazole 20 mg tablet,delayed 20 mg PO QAM 08/19/21 08/19/21 History release venlafaxine 75 mg capsule,extended 75 mg PO QAM 08/19/21 08/19/21 History release 24 hr (Effexor XR) Patient History Medical History Anxiety (04/20/13) Asthma Asthma (04/20/13) GERD (gastroesophageal reflux disease) HTN (hypertension) Mitral valve prolapse (04/20/13) Seasonal allergies Surgical History Previous section (04/20/13) Family History Other Family history non-contributory Social History Smoking Status: Never smoker Second Hand Exposure: No; Do You Dip or Chew Tobacco: No; Tobacco Cessation Education Requested by Patient: No Hx Alcohol Use: Yes Alcohol type: beer and wine Hx Substance Use: No Preferred Language: Tajik Communication Ability: Effective Block Setter [place] Required: No Beliefs That Will Affect Care: None marital status: Current Living Situation: Spouse How many Children do You have: 2 Other Information That Helps Us Care for You: No Feels Safe at Home: Yes Safety Concerns: Feels Safe At This Time Assistive Devices: Oxygen - Continuous Assistive Devices Comment: new due to current admition Review of Systems Review of Systems: Unobtainable due to reduced consciousness Physical Exam Physical Exam: General: Altered level of consciousness not following direct commands. nontoxic. Skin: Warm, dry, Head: Atraumatic Ears, nose, mouth and throat: airway obscured by BiPAP Cardiovascular: Normal peripheral perfusion Respiratory: Tachypnea with coarse breath sounds Gastrointestinal: Non distended Musculoskeletal: No deformity Results & Data Results & Data ([facility]) Vital Signs (Past 12 Hours) Vital Signs Temp Pulse Pulse Pulse Resp BP Pulse Ox 08/22/21 07:42 37.8 C H 110 H 37 H 109/75 94 08/22/21 07:16 102 H 38 H 90 08/22/21 07:12 96 H 38 H 93 08/22/21 04:30 97 H 37 H 93 08/22/21 04:06 106 H 32 H 90 08/22/21 03:58 93 H 08/22/21 02:49 37.3 C 85 29 H 110/67 98 08/22/21 00:37 98 H 29 H 91 08/21/21 23:21 112 H 38 H 88 L 08/21/21 23:15 37.3 C 103 H 20 125/80 84 L 08/21/21 22:54 101 H 32 H 95 Laboratory Results 08/22/21 08/22/21 08/22/21 Range/Units 09:27 08:04 06:22 ABG pH 7.44 (7.35-7.45) ABG pCO2 38 (35-46) mmHg ABG pO2 68 L (80-95) mmHg ABG HCO3 25 H (19-24) mmol/L ABG O2 Saturation 93.7 (90-95) % ABG Base Excess 1.1 (-9-1.8) mEq/L Darius Test Pos (Pos) Barometric Pressure 733.5 mm/Hg Oxygen Given 60 FiO2 Sodium 138 (136-145) mmol/L Potassium 3.8 (3.5-5.1) mmol/L Chloride 106 (98-107) mmol/L Carbon Dioxide 26 (21-32) mmol/L Anion Gap 6.0 (3-11) BUN 19 H (7-18) mg/dl Creatinine 0.67 (0.6-1.2) mg/dl Est Cr Clr Drug Dosing 117.2 ml/min Est GFR ( Amer) 123.9 ml/min Est GFR (Non-Af Amer) 106.9 ml/min BUN/Creatinine Ratio 28.1 H (10-20) Glucose 118 H (70-99) mg/dl Calcium 8.2 L (8.5-10.1) mg/dl AST 33 (15-37) U/L ALT 13 (12-78) U/L Urine Color Yellow Urine Appearance Clear (Clear) Urine pH 7.0 (4.5-7.5) Ur Specific [place] 1.007 (1.000-1.030) Urine Protein Negative (Negative) Urine Glucose (UA) Negative (Negative) Urine Ketones Negative (Negative) Urine Blood 2+ H (Negative) Urine Nitrite Negative (Negative) Urine Bilirubin Negative (Negative) Urine Urobilinogen Negative (Negative) Ur Leukocyte Esterase Trace H (Negative) Urine WBC (Auto) 1-5 (0-5) /hpf Urine RBC (Auto) 10-30 H (0-4) /hpf U Hyaline Cast (Auto) 5-10 H (0-5) /lpf U Epithel Cells (Auto) 20-30 H (0-5) /lpf Urine Bacteria (Auto) 3+ H (Negative) Coding Level of Care Code Critical Care 1st 30-74 mins Diagnoses Pneumonia due to 2019-nCoV U07.1; J12.82 Acute respiratory failure with hypoxia J96.01 Asthma J45.909 Anxiety F41.9 DVT prophylaxis Z29.9
[2021-08-22 08:37] LABS: Base Excess ABG 1.1 mEq/L (-9-1.8); HCO3 ABG 25 mmol/L (19-24); Oxygen Saturation ABG 93.7 % (90-95); PCO2 ABG 38 mmHg (35-46); PO2 ABG 68 mmHg (80-95); pH ABG 7.44 (7.35-7.45)
[2021-08-22] MEDS ORDERED: POTASSIUM CHLORIDE CRTAB 20 MEQ TABCR PO STA (08:37)
[2021-08-22] MEDS ORDERED: FUROSEMIDE 20 MG in SYRINGE 0 ML IV ONE (08:37)
--- NOTE | 2021-08-22 08:38 | Hospitalist Progress Note ---
Date of Service August 22, 2021 Assessment & Plan (1) Acute respiratory failure with hypoxia: Plan: 2/2 covid pneumonia, tachypnea present for about 24 hrs now, ABG this am reveals 7.44/38/68 after recover from episode mentioned above. Changed to ICU status, given Lasix 20mg IV now, starting on Precedex. Cont dexamethasone and remdesivir daily. Continue to prone as able. (2) Pneumonia due to 2019-nCoV: Plan: Plan as above. (3) Asthma: Plan: No wheezing, rapid shallow breathing 2/2 pneumonia. Difficult to rule out exa cerbation of asthma here and if this may be contributing. Pulm following. Cont steroids. Cont Breo daily. (4) Mitral valve prolapse: (5) Anxiety: Plan: Takes venlafaxine regularly, which she continues. Unable to receive dose this am 2/2 hypoxia. (6) HTN (hypertension): Plan: Cozaar pput on hold with low normal pressure. (7) GERD (gastroesophageal reflux disease): Plan: Cont PPI daily per home regimen. (8) DVT prophylaxis: Plan: Lovenox Full Dispo-to ICU, was updated by phone regarding the change in status. Lizeth Holder DO [facility] [address] Hospitalist Admission and Anticipated Discharge Date Admission Date: August 19, 2021 Subjective 45 yo F with COVID pneumonia. patient removed her own mask with O2 sat dropping to 68% per nursing . Difficult to recover her oxygen saturation this morning per nursing. Pt remains tachypneic with resp rate around 40bpm She reports proning overnight Denies pain Ott in place with good urine output Reports coughing significantly when takes her mask off Seems to be doing well on the mask, however, current settings 12/8 FiO2 60% Traffic Engineer evaluated her and recommends trial of Precedex Changed to ICU status Updated her by phone Review of Systems Review of Systems: At least ten systems were reviewed and negative except as indicated in HPI above. Physical Exam Physical Exam: CONSTITUTIONAL: WNWD, vitals as above, ill-appearing, BIPAP mask in place and tachypneic with increased work of breathing. EYES: normal conjunctivae, no scleral icterus ENT: external ear and nose normal,MMM NECK: trachea midline RESPIRATORY: clear to auscultation bilaterally, no crackles, rales or wheezes, rapid shallow breathing CARDIOVASCULAR: tachy rate and rhythm, S1 and 2 heard without murmurs, gallops or rubs, no JVD, no peripheral edema GASTROINTESTINAL: soft, nontender, ND MUSCULOSKELETAL: strength 5/5 throughout, head is normocephalic and atraumatic SKIN: warm and dry NEUROLOGIC: difficult to asses cranial nerves with BIPAP mask in place, normal cognition, normal speech, no tremor, no gross focal deficits. PSYCHIATRIC: alert cooperative and oriented to person, place and time. Results & Data Results & Data ([facility]) Vital Signs (Past 12 Hours) Vital Signs Temp Pulse Pulse Pulse Resp BP Pulse Ox 08/22/21 07:42 37.8 C H 110 H 37 H 109/75 94 08/22/21 07:16 102 H 38 H 90 08/22/21 07:12 96 H 38 H 93 08/22/21 04:30 97 H 37 H 93 08/22/21 04:06 106 H 32 H 90 08/22/21 03:58 93 H 08/22/21 02:49 37.3 C 85 29 H 110/67 98 08/22/21 00:37 98 H 29 H 91 08/21/21 23:21 112 H 38 H 88 L 08/21/21 23:15 37.3 C 103 H 20 125/80 84 L 08/21/21 22:54 101 H 32 H 95 Laboratory Results [facility] 08/22/21 06:22 Sodium 138 Potassium 3.8 Chloride 106 Carbon Dioxide 26 BUN 19 H Creatinine 0.67 Glucose 118 H Calcium 8.2 L Liver Function 08/22/21 Range/Units 06:22 AST 33 (15-37) U/L ALT 13 (12-78) U/L Medications Administered Current Inpatient Medications Acetaminophen (Acetaminophen 325 Mg Tab) 650 mg PO Q4H PRN PRN Reason: Pain or Fever Stop: 09/19/21 02:01 Albuterol (Albuterol Hfa 8 Gm Inhaler) 2 puffs INH Q4H PRN PRN Reason: Shortness Of Breath Or Wheezing Stop: 09/19/21 02:33 Aspirin (Aspirin 81 Mg Ectab) 81 mg PO [facility] Stop: 09/19/21 08:59 Last Admin: 08/21/21 10:43 Dose: 81 mg Documented by: Enoxaparin Sodium (Enoxaparin Inj 40 Mg/0.4 Ml Syr) 40 mg SQ Q12H MARTINEZ Stop: 09/19/21 21:29 Last Admin: 08/22/21 07:35 Dose: 40 mg Documented by: Fluticasone/Vilanterol (Fluticasone/Vilanterol 100/25mcg 14 Puffs/Inhaler) 1 puffs INH QAM MARTINEZ Stop: 09/19/21 08:59 Last Admin: 08/21/21 10:38 Dose: 1 puffs Documented by: Remdesivir 100 mg/ Sodium (Chloride) 250 mls @ 250 mls/hr IV Q24H [facility]; Protocol Stop: 08/23/21 20:59 Last Infusion: 08/21/21 21:36 Dose: Infused Documented by: Dexamethasone 10 mg/ Syringe 2.5 mls @ 1 mls/min IV DAILY MARTINEZ Stop: 08/30/21 08:59 Last Admin: 08/22/21 07:35 Dose: 1 mls/min Documented by: Lorazepam (Ativan) 0.5 mg in 1 mls @ 1 mls/min IV Q4H PRN PRN Reason: Agitation Stop: 09/19/21 23:54 Last Admin: 08/22/21 07:35 Dose: 1 mls/min Documented by: Dexmedetomidine HCl 200 mcg/ (Sodium Chloride) 50 mls @ 8.42 mls/hr IV .Q5H57M [facility]; Protocol Stop: 08/26/21 08:44 Ipratropium [place] (Ipratropium [place] Neb Soln 0.02% 2.5 Ml Vial) 0.5 mg INH Q6R MARTINEZ Stop: 09/19/21 06:59 Last Admin: 08/22/21 07:11 Dose: 0.5 mg Documented by: Levalbuterol HCl (Levalbuterol Hcl 1.25 Mg/3 Ml Neb) 1.25 mg NEB Q2H PRN PRN Reason: Shortness Of Breath Or Wheezing Stop: 09/19/21 02:01 Levalbuterol HCl (Levalbuterol 1.25mg/0.5ml Neb) 1.25 mg INH Q6R MARTINEZ Stop: 09/19/21 06:59 Last Admin: 08/22/21 07:11 Dose: 1.25 mg Documented by: Losartan Potassium (Losartan Potassium 25 Mg Tab) 25 mg PO QAM MARTINEZ Stop: 09/19/21 08:59 Last Admin: 08/21/21 10:43 Dose: 25 mg Documented by: Nitroglycerin (Nitroglycerin Sl 0.4 Mg/Tab Tab) 0.4 mg SL UD PRN PRN Reason: Chest Pain Stop: 09/19/21 02:01 Ondansetron HCl (Ondansetron Inj 2 Mg/Ml 2 Ml Vial) 4 mg IV Q6H PRN PRN Reason: Nausea Stop: 09/19/21 02:01 Pantoprazole Sodium ([facility]oprazole 40 Mg Tab) [facility]: 09/19/21 08:59 Last Admin: 08/21/21 10:43 Dose: 40 mg Documented by: Polyethylene Glycol (Polyethylene (Miralax) 17 Gm Pack) 17 gm PO DAILY PRN PRN Reason: Constipation Stop: 09/19/21 02:01 Sodium Chloride (Sodium Chloride 0.9% 10ml Flush) 30 ml IV Q24H [facility] Stop: 08/23/21 20:01 Last Admin: 08/21/21 19:57 Dose: 30 ml Documented by: Venlafaxine HCl (Venlafaxine Hcl Xr 75 Mg Capxr) 75 mg PO [facility] Stop: 09/19/21 08:59 Last Admin: 08/21/21 10:43 Dose: 75 mg Documented by:
[2021-08-22] MEDS ORDERED: DEXMEDETOMIDINE HCL 200 MCG in SODIUM CHLORIDE 0.9% 48 ML IV SCH (08:45)
[2021-08-22] MEDS ORDERED: FUROSEMIDE 40 MG/4 ML VIAL IV ONE (08:45)
[2021-08-22 08:48] LABS: Allen Test Pos (Pos)
[2021-08-22] MEDS: ACETAMINOPHEN 1,000 MG/100 ML VIAL IV PRN (09:21)
[2021-08-22] MEDS ORDERED: ACETAMINOPHEN 1000 MG/100 ML IV IV ONE (09:21)
[2021-08-22] MEDS: POTASSIUM CHLORIDE / WTR 10 MEQ/100 ML PLCT IV SCH ×2 (09:48→12:28)
[2021-08-22] MEDS: ASPIRIN 81 MG ECTAB PO SCH (09:49)
[2021-08-22] MEDS: FLUTICASONE/VILANTEROL 100/25MCG 14 PUFFS/INHALER INH SCH (09:49)
[2021-08-22] MEDS: PANTOprazole 40 MG TAB PO SCH (09:49)
[2021-08-22] MEDS: VENLAFAXINE HCL XR 75 MG CAPXR PO SCH (09:49)
--- NOTE | 2021-08-22 09:50 | Pulmonology Progress Note ---
Date of Service August 22, 2021 Assessment & Plan (1) Pneumonia due to 2019-nCoV: (2) Acute respiratory failure with hypoxia: (3) Asthma: (4) Anxiety: (5) DVT prophylaxis: Plan: 45-year-old female with a history of hypertension, asthma, anxiety, GERD. She presents with a 1 week history of symptoms for Covid. She is and lives with her 2 children. Both her as well as her 2 daughters are Covid positive. Patient admitted yesterday for increasing shortness of breath. Throughout the day today, patient has become more tachypneic and requires higher level of supplemental oxygen. Patient is a full code and desires full resuscitation level 1 Recommendations: -- VDRF sec to Acute hypoxic respiratory failure Secondary to Covid pneumonia * Continue with dexamethasone for total of 10 days * Continue with remdesivir * Maintain negative fluid balance * Continue to encourage self proning * Agree with high flow during the day as needed but would prefer BiPAP. * Continue BiPAP at night Continue with O2 supplementation to keep oxygen saturation between 90-92%. Awake proning will be helpful Continue with incentive spirometry Continue with flutter valve. Recommend patient to be kept euvolemic to negative balance -- Asthma: * Continue leave albuterol/ipratropium nebulizer treatments * Continue fluticasone/Vilanterol (Brio Ellipta) (ICS/LABA) Plan: In/out: -447, urine output 700 mL Patient's tachypnea is from underlying pneumonia as well as anxiety on top of h er being febrile ICU has been consulted --> intubated the patient Continue with ICU management as per the coremaking machine operator Please note the above document was generated using voice recognition software. It may contain grammatical, syntax or spelling errors.Any formal questions or concerns about the content, text or information contained within the body of this dictation should be directly addressed to the provider for clarification. Admission and Anticipated Discharge Date Admission Date: August 19, 2021 Subjective Patient seen and examined at bedside. Patient required intubation earlier today because of respiratory distress She was put on Precedex but she did not improve. Review of Systems Review of Systems: All systems reviewed & are unremarkable except as noted in Subjective Physical Exam Physical Exam: Constitutional: No acute distress HEENT: PERRLA, positive ETT Respiratory system: Decreased air entry bilaterally, no wheeze, rhonchi, positi ve crackles bilateral lower lobes CVS: S1-S2 positive, no murmurs or gallops Abdomen: Soft, nontender, nondistended, positive bowel sounds x4 Extremities: +2 pulses bilaterally radialis/ dorsalis pedis, no cyanosis, no edema Neuro: Intubated, breathing over the vent Psych: Unable to assess G/U: Positive Ott Skin: no rashes, warm and dry Lymphatic: no cervical or axillary lymphadenopathy Results & Data Results & Data ([facility]) Vital Signs (Past 12 Hours) Vital Signs Temp Pulse Pulse Pulse Resp BP Pulse Ox 08/22/21 09:15 38.4 C H 104 H 37 H 114/70 97 08/22/21 07:42 37.8 C H 110 H 37 H 109/75 94 08/22/21 07:16 102 H 38 H 90 08/22/21 07:12 96 H 38 H 93 08/22/21 04:30 97 H 37 H 93 08/22/21 04:06 106 H 32 H 90 08/22/21 03:58 93 H 08/22/21 02:49 37.3 C 85 29 H 110/67 98 08/22/21 00:37 98 H 29 H 91 08/21/21 23:21 112 H 38 H 88 L 08/21/21 23:15 37.3 C 103 H 20 125/80 84 L 08/21/21 22:54 101 H 32 H 95 08/21/21 05:31 08/22/21 06:22 PG Care Time/CCT Total # of Minutes Spent Total Time Spent with Patient: Total time spent is greater than 50% in coordination of care (as documented) at patient's floor/unit and/or counseling patient: Coding Level of Care Code 76845 Subseq Hosp Care Lvl 3 Diagnoses Pneumonia due to 2019-nCoV U07.1; J12.82 Acute respiratory failure with hypoxia J96.01 Asthma J45.909 Anxiety F41.9 DVT prophylaxis Z29.9
[2021-08-22] MEDS ORDERED: RAPID SEQUENCE INDUCTION BAG ONE (10:16)
[2021-08-22 10:23] LABS: Appearance Urine Clear (Clear); Bacteria Urine Automated 3+ (Negative); Bilirubin Urine Negative (Negative); Blood Urine 2+ (Negative); Color Urine Yellow; Epithelial Cell Urine Auto 20-30 /lpf (0-5); Glucose Urine UA Negative (Negative); Ketones Urine Negative (Negative); Leukocyte Esterase Urine Trace (Negative); Nitrite Urine Negative (Negative); Protein Urine Negative (Negative); Specific Gravity Urine 1.007 (1.000-1.030); Urobilinogen Urine Negative (Negative)
[2021-08-22] MEDS ORDERED: PROPOFOL IV EMULSION 10 MG/ML 100 ML VIAL IV ONE (10:34)
[2021-08-22] MEDS ORDERED: propofoL 1,000 MG/100 ML VIAL IV SCH (10:49)
[2021-08-22] MEDS ORDERED: PROPOFOL BOLUS FROM BAG IV PRN (10:49)
[2021-08-22] MEDS: fentaNYL DRIP 1,250 MCG/250 ML BAG IV SCH ×2 (10:51→23:53)
[2021-08-22] MEDS: MIDAZOLAM HCL 125 MG/250 ML BAG IV PRN (12:00)
--- NOTE | 2021-08-22 12:35 | Procedure Note ---
Procedure Note Date of Service August 22, 2021 Note Procedure Date: Noted above Procedure: Endotracheal intubation Pre-procedure Diagnosis: Acute hypoxic respiratory failure secondary to COVID-19 pneumonia Post-procedure Diagnosis: same as above Prior to Procedure: Informed Consent: emergent Attending Staff: Oleg Isaac DO The identity of the patient was confirmed and a bedside time out was performed. Description of Procedure: Patient was evaluated and required intubation for impending respiratory failure. The patient was prepared in the usual fashion. A video laryngoscope was used. A 8 mm inner diameter endotrachial tube was placed endotracheally to 23 cm at the teeth. A grade 1 view was obtained. The endotracheal tube was noted to pass through the vocal cords. Chest rise was bilateral. Bilateral breath sounds were heard without air sounds in the abdomen. Mist was noted in the endotracheal tube. End-tidal CO2 measurement was positive. Chest x-ray shows proper endotracheal tube placement. Complications: None Findings: Not applicable Specimens: Not applicable Estimated blood loss: Zero Coding CPT Codes Resuscitation - Resuscitation: 83305 Endotracheal Intubation, emergency ([id number]) [facility] Procedure Codes (Charges) Resuscitation Resuscitation: 00796 Endotracheal Intubation, emergency
--- NOTE | 2021-08-22 12:36 | Procedure Note ---
Procedure Note Date of Service August 22, 2021 Note Procedure date: Noted above Procedure: Central venous access Pre-procedure indication: Need for vasoactive medication administration Post-procedure Diagnosis: same as above Prior to Procedure: Informed Consent: Emergent consent implied. Attending Staff: Oleg Isaac DO Resident/APC: Not applicable Skin Prep: Chlorhexidine Anesthesia: 4 mL 1% lidocaine without epinephrine The identity of the patient was confirmed and a bedside time out was performed. Description of Procedure: After sterile prep and sterile drape utilizing standard sterile technique the superficial skin of the right subclavian area was anesthetized. The target vessel was identified and entered with an 18-gauge needle. Dark venous blood return was noted. A guidewire was inserted through the needle and into the vessel. The needle was withdrawn and a skin jeannette was made. A tissue dilator was advanced via Seldinger technique and removed. A triple lumen catheter was inserted via Seldinger technique and the guidewire removed. All ports adrianna and flushed easily. A Biopatch was placed, and the catheter was secured via silk suture. A sterile dressing was then applied. Complications: None Estimated blood loss: Trace Patient tolerated the procedure well. Coding CPT Codes Tubes, Drains, and Vasc Access - Tubes, Drains, and Vasc Access: [id number] Insertion Of Non-tunneled Catheter Age 6 Yrs> ([id number]) [facility] Procedure Codes (Charges) Tubes, Drains, and Vasc Access Procedure 1: Tubes, Drains, and Vasc Access: [id number] Insertion Of Non-tunneled Catheter Age 6 Yrs>
--- NOTE | 2021-08-22 12:37 | Procedure Note ---
Procedure Note Date of Service August 22, 2021 Note Procedure date: Noted above Procedure: Radial artery cannulation Pre-procedure Diagnosis: Need for invasive monitoring, hypotension/frequent blood draws Post-procedure Diagnosis: same as above Prior to Procedure: Informed Consent: Emergent consent implied. Attending Staff: Oleg Isaac DO Skin Prep: Chlorhexidine Anesthesia: 3 mL 1% lidocaine without epinephrine The identity of the patient was confirmed and a bedside time out was performed. Description of Procedure: After sterile prep and sterile drape utilizing standard sterile technique the superficial skin of the left radial artery was anesthetized. The target artery was identified via dynamic ultrasound guidance and entered with a 20-gauge arrow Angiocath. Pulsatile bright red blood return was noted. Via modified Seldinger technique the self-contained guidewire was advanced and the Angiocath advanced over the guidewire. The guidewire was removed and brisk arterial blood return was noted. The pressure monitor was connected, and the arterial line was secured via commercial securement device. A sterile dressing was then applied. Complications: None Estimated blood loss: Trace Patient tolerated the procedure well. Coding CPT Codes Tubes, Drains, and Vasc Access - Tubes, Drains, and Vasc Access: [id number] Place Catheter In Artery ([id number]) [facility] Procedure Codes (Charges) Tubes, Drains, and Vasc Access Procedure 1: Tubes, Drains, and Vasc Access: [id number] Place Catheter In Artery
--- NOTE | 2021-08-22 13:05 | XRay Report ---
XR chest 1V portable INDICATION: MN ^Y ^intubation. TECHNIQUE: Single frontal radiograph of the chest was obtained. Comparison: Comparison is made to chest one view 08/20/2021 FINDINGS: Interval placement of enteric tube with the side-port at the gastroesophageal junction and an endotra cheal tube which terminates approximately 25 mm from the mu. The cardiomediastinal silhouette is normal. Again seen are multifocal airspace opacities, slightly improved from prior exam. No evidence of pleural effusion or pneumothorax. IMPRESSION: 1. Enteric tube side-port at the gastroesophageal junction. The tube may be advanced approximately 5 cm for improved positioning. Endotracheal tube is in satisfactory position. 2. Airspace opacities are again seen, slightly improved compared to the prior exam. ACT 112: Negative or not required by law. Electronically signed by: Ryan Ortiz M.D. 08/22/2021 1:03 PM
[2021-08-22] MEDS: MIDAZOLAM BOLUS FROM BAG IV PRN ×2 (14:08→21:55)
[2021-08-22] MEDS ORDERED: ARTIFICIAL TEARS OP OINT 3.5 GM TUBE OP SCH (14:30)
[2021-08-22] MEDS ORDERED: CISATRACURIUM BESYLATE 40 MG in 0.9 % SODIUM CHLORIDE 80 ML IV SCH (14:30)
[2021-08-22] MEDS: CISATRACURIUM BESYLATE 40 MG in 0.9 % SODIUM CHLORIDE 80 ML IV SCH ×3 (14:49→23:54)
[2021-08-22] MEDS ORDERED: CISATRACURIUM BESYLATE IV SOLN 2 MG/ML 10 ML VIAL IV ONE (15:00)
[2021-08-22] MEDS: ARTIFICIAL TEARS OP OINT 3.5 GM TUBE OP SCH ×2 (16:50→20:15)
[2021-08-22] MEDS: PEPTAMEN INTENSE VHP 1.0 CAL 1,000 ML BAG GT SCH (17:30)
[2021-08-22] MEDS: SODIUM CHLORIDE 0.9% 10ML FLUSH IV SCH (19:59)
[2021-08-22] MEDS: REMDESIVIR 100 MG in SODIUM CHLORIDE 0.9% 230 ML IV SCH (19:59)
[2021-08-22] MEDS: VENLAFAXINE HCL 37.5 MG TAB PO SCH ×2 (20:17→21:19)
[2021-08-23] MEDS: ARTIFICIAL TEARS OP OINT 3.5 GM TUBE OP SCH ×7 (01:33→23:03)
[2021-08-23] MEDS: MIDAZOLAM BOLUS FROM BAG IV PRN ×4 (01:34→05:49)
[2021-08-23] MEDS: IPRATROPIUM BROMIDE NEB SOLN 0.02% 2.5 ML VIAL INH SCH ×4 (01:41→19:39)
[2021-08-23] MEDS: LEVALBUTEROL 1.25MG/0.5ML NEB INH SCH ×4 (01:42→19:39)
[2021-08-23] MEDS: MIDAZOLAM HCL 125 MG/250 ML BAG IV PRN ×3 (02:08→14:39)
[2021-08-23 03:09] LABS: iSTAT Art Bld Gas pCO2 Correct 50 mmHg (35-46); iSTAT Art Bld Gas pH Corrected 7.353 (7.35-7.45); iSTAT Arterial Blood Gas HCO3 28 meg/L (19-24); iSTAT Arterial Blood Gas pCO2 49 mmHg (35-46); iSTAT Arterial Blood Gas pH 7.36 (7.35-7.45); iSTAT Arterial Blood Gas pO2 58 mmHg (80-95); iSTAT Arterial Blood Gas pO2 C 60; iSTAT Carbon Dioxide 29 mmol/L (24-31); iSTAT FiO2 50 %; iSTAT Hematocrit 37 % (37-47); iSTAT Hemoglobin 12.6 g/dl (12.0-16.0); iSTAT Potassium 3.7 mmol/L (3.3-5.0); iSTAT Site Art Line; iSTAT Sodium 138 mmol/L (135-144)
[2021-08-23] MEDS: CISATRACURIUM BESYLATE 40 MG in 0.9 % SODIUM CHLORIDE 80 ML IV SCH ×5 (03:39→19:11)
[2021-08-23 08:01] LABS: Hematocrit (blood only) 36.1 % (37-47); Hemoglobin 10.8 g/dL (12.0-16.0); Mean Corpuscular Hemoglobin 24.4 pg (25-34); Mean Corpuscular Hgb Conc 29.9 g/dL (32-36); Mean Corpuscular Volume 81.5 fL (80-100); Mean Platelet Volume 10.5 fL (7.4-10.4); Platelet Count 274 K/uL (130-400); RDW Coefficient of Variation 15.7 % (11.5-14.5); RDW Standard Deviation 47.3 fL (36.4-46.3); Red Blood Count 4.43 M/uL (4.2-5.4); White Blood Count 17.54 K/uL (4.8-10.8)
[2021-08-23 08:31] LABS: BUN Creatinine Ratio 33.3 (10-20); Calcium 7.7 mg/dl (8.5-10.1); Creatinine Clr Calc Pharmacy 136.4 ml/min; Est GFR (African American) 130.7 ml/min; Est GFR (Non-African American) 112.7 ml/min; Magnesium 2.9 mg/dl (1.8-2.4)
--- NOTE | 2021-08-23 08:51 | XRay Report ---
XR chest 1V portable HISTORY: 45 years-old Female Resp failure acute respiratory failure COMPARISON: 08/22/2021 TECHNIQUE: Portable upright AP view of the chest FINDINGS: Endotracheal tube terminates 4.0 cm superior to the mu. Right subclavian central venous catheter distal tip projects over the mid SVC. Enteric tube courses into the stomach outside the [id number] . No pneumothorax or pleural effusion. Multifocal bilateral airspace opacities appear stable from com parison. No acute fracture. IMPRESSION: 1. Lines and tubes as above. 2. Unchanged bilateral airspace opacities. 3. No pneumothorax. ACT 112: Negative or not required by law. The above report was generated using voice recognition software. It may contain grammatical, syntax o r spelling errors. Electronically signed by: Faisal Eugene M.D. 08/23/2021 8:49 AM
[2021-08-23] MEDS: dexAMETHasone 10 MG in SYRINGE 0 ML IV SCH (09:00)
[2021-08-23] MEDS: ACETAMINOPHEN 1,000 MG/100 ML VIAL IV PRN (09:01)
[2021-08-23] MEDS: ASPIRIN 81 MG CHEW PO SCH (09:02)
[2021-08-23] MEDS: LANSOPRAZOLE 30 MG SOLTAB NG SCH (09:02)
[2021-08-23] MEDS: VENLAFAXINE HCL 37.5 MG TAB PO SCH ×2 (09:03→20:47)
[2021-08-23] MEDS: ENOXAPARIN INJ 40 MG/0.4 ML SYR SQ SCH ×2 (09:03→20:47)
[2021-08-23] MEDS ORDERED: FUROSEMIDE 20 MG in SYRINGE 0 ML IV ONE (09:57)
--- NOTE | 2021-08-23 09:58 | Critical Care Progress Note ---
Date of Service August 23, 2021 Assessment & Plan (1) Pneumonia due to 2019-nCoV: Plan: Reason Critically Ill: 45-year-old female with acute hypoxic respiratory failure PLAN: Neuro: Sedation: -Versed and fentanyl Neuromuscular blockade -Stop cis atracurium today Anxiety: * Goal RASS -2 * Continue venlafaxine Resp: Covid pneumonia: * Continue with dexamethasone for total of 10 days * Continue with remdesivir * Maintain negative fluid balance * High PEEP low FiO2 tables -Patient's peak airway pressures were elevated proceeding with neuromuscular blockade Asthma: * No significant bronchospasm on exam * Continue leave albuterol/ipratropium nebulizer treatments Acute hypoxic respiratory failure * Intubation day 2 Fluids/Renal: Maintain negative fluid balance -20 mg Lasix this morning ID: Covid pneumonia GI/Nutrition: Trickle tube feeds Heme: DVT prophylaxis: Lovenox 40 mg twice daily Endocrine: ICU hyperglycemia protocol Vascular access: Right subclavian placed 08/22, left arterial line placed 08/22 Code Status: Full Disposition: ICU Point of contact patient's : Louie: [phone] (2) Acute respiratory failure with hypoxia: (3) Asthma: (4) Anxiety: (5) DVT prophylaxis: Admission and Anticipated Discharge Date Admission Date: August 19, 2021 Supervising Physician Co-Signing Physician Notes I have personally spent 40 minutes of critical care time in the direct management of this patient. This is a life/limb threatening event. This includes time spent evaluating patient, direct bedside care, chart review, placing orders, interpretation of diagnostic studies, discussion with consultants, patient, and/or family members regarding treatment decisions, as well as other required patient management activities. This time is exclusive of all separately billable procedures, and teaching time and separate from and in addition to any other critical care service time. Subjective No overnight events Physical Exam Physical Exam: General: GCS: 3 TP. Skin: Warm, dry, Head: Atraumatic Ears, nose, mouth and throat: airway obscured by endotracheal tube Cardiovascular: Normal peripheral perfusion Respiratory: coarse breath sounds, ventilator settings reviewed Gastrointestinal: Non distended Musculoskeletal: No deformity Results & Data Results & Data ([facility]) Vital Signs (Past 12 Hours) Vital Signs Temp Pulse Resp BP Pulse Ox 08/23/21 08:54 38.1 C H 113 H 141/82 H 94 08/23/21 08:29 20 88 L 08/23/21 07:54 38.0 C H 109 H 20 138/81 93 08/23/21 06:54 37.8 C H 107 H 20 140/76 94 08/23/21 03:54 37.3 C 109 H 20 145/81 H 94 08/23/21 02:54 37.3 C 113 H 20 156/84 H 92 08/23/21 02:46 22 92 08/23/21 01:54 36.1 C L 112 H 16 145/75 H 91 08/23/21 00:54 37.4 C 88 20 158/82 H 94 08/22/21 23:54 37.1 C 88 20 138/82 93 08/22/21 22:54 36.9 C 86 20 143/75 H 92 08/22/21 22:46 87 20 92 Laboratory Results 08/23/21 08/23/21 08/23/21 Range/Units 05:38 05:38 02:36 WBC 17.54 H (4.8-10.8) K/uL RBC 4.43 (4.2-5.4) M/uL Hgb 10.8 L (12.0-16.0) g/dL POC Hgb 12.6 (12.0-16.0) g/dl Hct 36.1 L (37-47) % POC Hct 37 (37-47) % MCV 81.5 (80-100) fL MCH 24.4 L (25-34) pg MCHC 29.9 L (32-36) g/dL RDW Std Deviation 47.3 H (36.4-46.3) fL RDW Coeff of Patrica 15.7 H (11.5-14.5) % Plt Count 274 (130-400) K/uL MPV 10.5 H (7.4-10.4) fL Sample Site Art Line POC pH 7.36 (7.35-7.45) POC pCO2 49 H (35-46) mmHg POC pO2 58 L (80-95) mmHg POC HCO3 28 H (19-24) roseann/L POC Total CO2 29 (24-31) mmol/L POC Base Excess 2.0 H (-9-1.8) roseann/L ABG pH (Temp Correct) 7.353 (7.35-7.45) ABG pCO2 (Temp Corrct 50 H (35-46) mmHg POC ABG pO2 at Pt Temp 60 POC ABG O2 Sat 88.0 L (90-95) % Darius Test NA O2 Delivery Device Ventilator POC O2 Rate 20 POC FiO2 50 % Tidal Volume 400 PEEP 14 POC Sodium 138 (135-144) mmol/L Sodium 137 (136-145) mmol/L POC Potassium 3.7 (3.3-5.0) mmol/L Potassium 4.0 (3.5-5.1) mmol/L Chloride 104 (98-107) mmol/L Carbon Dioxide 28 (21-32) mmol/L Anion Gap 5.0 (3-11) BUN 19 H (7-18) mg/dl Creatinine 0.57 L (0.6-1.2) mg/dl Est Cr Clr Drug Dosing 136.4 ml/min Est GFR ( Amer) 130.7 ml/min Est GFR (Non-Af Amer) 112.7 ml/min BUN/Creatinine Ratio 33.3 H (10-20) Glucose 108 H (70-99) mg/dl POC Glucose (70-99) mg/dl Calcium 7.7 L (8.5-10.1) mg/dl Phosphorus 3.0 (2.5-4.9) mg/dl Magnesium 2.9 H (1.8-2.4) mg/dl AST 17 (15-37) U/L ALT 12 (12-78) U/L C-Reactive Protein 14.00 H (0-0.29) mg/dl Urine Color Urine Appearance (Clear) Urine pH (4.5-7.5) Ur Specific [place] (1.000-1.030) Urine Protein (Negative) Urine Glucose (UA) (Negative) Urine Ketones (Negative) Urine Blood (Negative) Urine Nitrite (Negative) Urine Bilirubin (Negative) Urine Urobilinogen (Negative) Ur Leukocyte Esterase (Negative) Urine WBC (Auto) (0-5) /hpf Urine RBC (Auto) (0-4) /hpf U Hyaline Cast (Auto) (0-5) /lpf U Epithel Cells (Auto) (0-5) /lpf Urine Bacteria (Auto) (Negative) 08/22/21 08/22/21 Range/Units 18:27 09:27 WBC (4.8-10.8) K/uL RBC (4.2-5.4) M/uL Hgb (12.0-16.0) g/dL POC Hgb (12.0-16.0) g/dl Hct (37-47) % POC Hct (37-47) % MCV (80-100) fL MCH (25-34) pg MCHC (32-36) g/dL RDW Std Deviation (36.4-46.3) fL RDW Coeff of Patrica (11.5-14.5) % Plt Count (130-400) K/uL MPV (7.4-10.4) fL Sample Site POC pH (7.35-7.45) POC pCO2 (35-46) mmHg POC pO2 (80-95) mmHg POC HCO3 (19-24) roseann/L POC Total CO2 (24-31) mmol/L POC Base Excess (-9-1.8) roseann/L ABG pH (Temp Correct) (7.35-7.45) ABG pCO2 (Temp Corrct (35-46) mmHg POC ABG pO2 at Pt Temp POC ABG O2 Sat (90-95) % Darius Test O2 Delivery Device POC O2 Rate POC FiO2 % Tidal Volume PEEP POC Sodium (135-144) mmol/L Sodium (136-145) mmol/L POC Potassium (3.3-5.0) mmol/L Potassium (3.5-5.1) mmol/L Chloride (98-107) mmol/L Carbon Dioxide (21-32) mmol/L Anion Gap (3-11) BUN (7-18) mg/dl Creatinine (0.6-1.2) mg/dl Est Cr Clr Drug Dosing ml/min Est GFR ( Amer) ml/min Est GFR (Non-Af Amer) ml/min BUN/Creatinine Ratio (10-20) Glucose (70-99) mg/dl POC Glucose 123 H (70-99) mg/dl Calcium (8.5-10.1) mg/dl Phosphorus (2.5-4.9) mg/dl Magnesium (1.8-2.4) mg/dl AST (15-37) U/L ALT (12-78) U/L C-Reactive Protein (0-0.29) mg/dl Urine Color Yellow Urine Appearance Clear (Clear) Urine pH 7.0 (4.5-7.5) Ur Specific [place] 1.007 (1.000-1.030) Urine Protein Negative (Negative) Urine Glucose (UA) Negative (Negative) Urine Ketones Negative (Negative) Urine Blood 2+ H (Negative) Urine Nitrite Negative (Negative) Urine Bilirubin Negative (Negative) Urine Urobilinogen Negative (Negative) Ur Leukocyte Esterase Trace H (Negative) Urine WBC (Auto) 1-5 (0-5) /hpf Urine RBC (Auto) 10-30 H (0-4) /hpf U Hyaline Cast (Auto) 5-10 H (0-5) /lpf U Epithel Cells (Auto) 20-30 H (0-5) /lpf Urine Bacteria (Auto) 3+ H (Negative) Coding Level of Care Code Critical Care 1st 30-74 mins Diagnoses Pneumonia due to 2019-nCoV U07.1; J12.82 Acute respiratory failure with hypoxia J96.01 Asthma J45.909 Anxiety F41.9 DVT prophylaxis Z29.9
[2021-08-23] MEDS ORDERED: FUROSEMIDE 40 MG/4 ML VIAL IV SCH (10:30)
[2021-08-23] MEDS: fentaNYL DRIP 1,250 MCG/250 ML BAG IV SCH ×2 (10:38→21:25)
--- NOTE | 2021-08-23 13:53 | Hospitalist Progress Note ---
Date of Service August 23, 2021 Assessment & Plan (1) Acute respiratory failure with hypoxia: Plan: 2/2 covid pneumonia, tachypnea present for about 24 hrs, subsequent intubation yesterday around noon. She was paralyzed and remains on sedation. Continue per denture packer. (2) Pneumonia due to 2019-nCoV: Plan: Continue daily Decadron and remdesivir, proning as able. (3) Asthma: Plan: Continue plan as above. (4) UTI (urinary tract infection): Plan: Empiric Rocephin started pending culture spec & sens. (5) Mitral valve prolapse: (6) Anxiety: Plan: Takes venlafaxine regularly, which she continues. (7) HTN (hypertension): Plan: Cozaar put on hold with low normal pressure. A-line in place now. (8) GERD (gastroesophageal reflux disease): Plan: Cont PPI daily per home regimen. (9) DVT prophylaxis: Plan: Lovenox, PPI She is on trickle tube feeds via OGT Full Code Dispo-cont ICU care Lizeth Holder DO [facility] Hospitalist Admission and Anticipated Discharge Date Admission Date: August 19, 2021 Subjective 45-year-old female with acute respiratory failure secondary to Covid pneumonia She is intubated and sedated, febrile this morning, off paralytics as of this morning, sedated on fentanyl and Versed Review of Systems Review of Systems: Cannot obtain review of systems as patient is intubated and sedated Physical Exam Physical Exam: CONSTITUTIONAL: WNWD, vitals as above, intubated EYES: normal conjunctivae, no scleral icterus ENT: external ear and nose normal, MMM, ETT in place, OG tube in place NECK: trachea midline RESPIRATORY: clear to auscultation bilaterally, no crackles, rales or wheezes CARDIOVASCULAR: reg rate and rhythm, S1 and 2 heard without murmurs, gallops or rubs, no JVD, no peripheral edema, A line in LUE. CHEST: R subclavian central line in place. GASTROINTESTINAL: soft, nontender, ND MUSCULOSKELETAL: sedated, cannot assess SKIN: warm and dry NEUROLOGIC: sedated, cannot assess Results & Data Results & Data ([facility]) Vital Signs (Past 12 Hours) Vital Signs Temp Pulse Pulse Resp BP Pulse Ox 09/25/21 12:55 88 20 91 08/23/21 12:54 36.5 C 88 116/73 96 08/23/21 12:00 21 08/23/21 11:54 36.4 C L 97 H 121/72 91 08/23/21 10:54 37.2 C 98 H 116/65 89 L 08/23/21 09:54 37.5 C 109 H 129/75 86 L 08/23/21 08:54 38.1 C H 113 H 141/82 H 94 08/23/21 08:29 20 88 L 08/23/21 07:54 38.0 C H 109 H 20 138/81 93 08/23/21 06:54 37.8 C H 107 H 20 140/76 94 08/23/21 03:54 37.3 C 109 H 20 145/81 H 94 08/23/21 02:54 37.3 C 113 H 20 156/84 H 92 08/23/21 02:46 22 92 08/23/21 01:54 36.1 C L 112 H 16 145/75 H 91 Laboratory Results Short CBC 08/23/21 Range/Units 05:38 WBC 17.54 H (4.8-10.8) K/uL Hgb 10.8 L (12.0-16.0) g/dL Hct 36.1 L (37-47) % Plt Count 274 (130-400) K/uL BMP 08/23/21 05:38 Sodium 137 Potassium 4.0 Chloride 104 Carbon Dioxide 28 BUN 19 H Creatinine 0.57 L Glucose 108 H Calcium 7.7 L Liver Function 08/23/21 Range/Units 05:38 AST 17 (15-37) U/L ALT 12 (12-78) U/L Diagnostic Findings Chest X-Ray 08/23/21 07:00 XR chest 1V portable HISTORY: 45 years-old Female Resp failure acute respiratory failure COMPARISON: 08/22/2021 TECHNIQUE: Portable upright AP view of the chest FINDINGS: Endotracheal tube terminates 4.0 cm superior to the mu. Right subclavian central venous catheter distal tip projects over the mid SVC. Enteric tube courses into the stomach outside the [id number]. No pneumothorax or pleural effusion. Multifocal bilateral airspace opacities appear stable from comparison. No acute fracture. IMPRESSION: 1. Lines and tubes as above. 2. Unchanged bilateral airspace opacities. 3. No pneumothorax. ACT 112: Negative or not required by law. The above report was generated using voice recognition software. It may contain grammatical, syntax or spelling errors. Electronically signed by: Faisal Eugene M.D. 08/23/2021 8:49 AM Medications Administered Current Inpatient Medications Albuterol (Albuterol Hfa 8 Gm Inhaler) 2 puffs INH Q4H PRN PRN Reason: Shortness Of Breath Or Wheezing Stop: 09/19/21 02:33 Aspirin (Aspirin 81 Mg Chew) 81 mg PO QAM MARTINEZ Stop: 09/22/21 08:59 Last Admin: 08/23/21 09:02 Dose: 81 mg Documented by: Enoxaparin Sodium (Enoxaparin Inj 40 Mg/0.4 Ml Syr) 40 mg SQ Q12H MARTINEZ Stop: 09/19/21 21:29 Last Admin: 08/23/21 09:03 Dose: 40 mg Documented by: Fentanyl Citrate (Fentanyl Bolus From Bag) 50 mcg IV Q60M PRN PRN Reason: Pain or Agitation Stop: 09/05/21 10:49 Last Admin: 08/23/21 05:49 Dose: 50 mcg Documented by: Fluticasone/Vilanterol (Fluticasone/Vilanterol 100/25mcg 14 Puffs/Inhaler) 1 puffs INH QAM MARTINEZ Stop: 09/19/21 08:59 Last Admin: 08/22/21 09:49 Dose: Not Given Documented by: Remdesivir 100 mg/ Sodium (Chloride) 250 mls @ 250 mls/hr IV Q24H MARTINEZ; Protocol Stop: 08/23/21 20:59 Last Infusion: 08/22/21 21:35 Dose: Infused Documented by: Dexamethasone 10 mg/ Syringe 2.5 mls @ 1 mls/min IV DAILY MARTINEZ Stop: 08/30/21 08:59 Last Admin: 08/23/21 09:00 Dose: 1 mls/min Documented by: Acetaminophen (Ofirmev) 1,000 mg in 100 mls @ 400 mls/hr IV Q8H PRN PRN Reason: pain/fever Stop: 08/25/21 09:19 Last Infusion: 08/23/21 09:16 Dose: Infused Documented by: Fentanyl Citrate (Fentanyl Drip) 1,250 mcg in 250 mls @ 30 mls/hr IV .Q8H20M MARTINEZ; Protocol Stop: 09/05/21 10:49 Last Admin: 08/23/21 10:38 Dose: 150 mcg/hr, 30 mls/hr Documented by: Midazolam HCl (Versed) 125 mg in 250 mls @ 24 mls/hr IV .[id number] PRN; Protocol PRN Reason: Sedation Stop: 09/21/21 12:05 Last Titration: 08/23/21 07:08 Dose: 12 mg/hr, 24 mls/hr Documented by: Cisatracurium Besylate 40 mg/ (Sodium Chloride) 100 mls @ 0 mls/hr IV .Q0M MARTINEZ; Protocol Stop: 09/21/21 14:29 Last Titration: 08/23/21 09:50 Dose: 0 mcg/kg/min, 0 mls/hr Documented by: Ceftriaxone Sodium 2,000 mg/ (Dextrose) 70 mls @ 100 mls/hr IV 1400 MARTINEZ; Protocol Stop: 08/30/21 13:59 Ipratropium Salt [place] (Ipratropium Salt [place] Neb Soln 0.02% 2.5 Ml Vial) 0.5 mg INH Q6R MARTINEZ Stop: 09/19/21 06:59 Last Admin: 08/23/21 12:54 Dose: 0.5 mg Documented by: Lansoprazole (Lansoprazole 30 Mg Soltab) 30 mg NG DAILY MARTINEZ Stop: 09/22/21 08:59 Last Admin: 08/23/21 09:02 Dose: 30 mg Documented by: Levalbuterol HCl (Levalbuterol Hcl 1.25 Mg/3 Ml Neb) 1.25 mg NEB Q2H PRN PRN Reason: Shortness Of Breath Or Wheezing Stop: 09/19/21 02:01 Levalbuterol HCl (Levalbuterol 1.25mg/0.5ml Neb) 1.25 mg INH Q6R MARTINEZ Stop: 09/19/21 06:59 Last Admin: 08/23/21 12:54 Dose: 1.25 mg Documented by: Losartan Potassium (Losartan Potassium 25 Mg Tab) 25 mg PO QAM MARTINEZ Stop: 09/19/21 08:59 Last Admin: 08/21/21 10:43 Dose: 25 mg Documented by: Midazolam HCl (Midazolam Bolus From Bag) 2 mg IV Q60M PRN PRN Reason: Sedation Stop: 09/21/21 12:05 Last Admin: 08/23/21 05:49 Dose: 2 mg Documented by: Multi-Ingredient Cream (Artificial Tears Op Oint 3.5 Gm Tube) 1 appln OP Q4 MARTINEZ Stop: 09/21/21 15:59 Last Admin: 08/23/21 09:04 Dose: 1 appln Documented by: Nitroglycerin (Nitroglycerin Sl 0.4 Mg/Tab Tab) 0.4 mg SL UD PRN PRN Reason: Chest Pain Stop: 09/19/21 02:01 Nutritional Formula (Peptamen Intense Vhp 1.0 Jair 1,000 Ml Bag) 1,000 ml GT CONT MARTINEZ; Protocol Stop: 09/21/21 14:44 Last Admin: 08/22/21 17:30 Dose: 1,000 ml Documented by: Ondansetron HCl (Ondansetron Inj 2 Mg/Ml 2 Ml Vial) 4 mg IV Q6H PRN PRN Reason: Nausea Stop: 09/19/21 02:01 Polyethylene Glycol (Polyethylene (Miralax) 17 Gm Pack) 17 gm PO DAILY PRN PRN Reason: Constipation Stop: 09/19/21 02:01 Sodium Chloride (Sodium Chloride 0.9% 10ml Flush) 30 ml IV Q24H MARTINEZ Stop: 08/23/21 20:01 Last Admin: 08/22/21 19:59 Dose: 30 ml Documented by: Venlafaxine HCl (Venlafaxine Hcl 37.5 Mg Tab) 37.5 mg PO BID MARTINEZ Stop: 09/21/21 20:59 Last Admin: 08/23/21 09:03 Dose: 37.5 mg Documented by:
[2021-08-23] MEDS ORDERED: ROCURONIUM BROMIDE 10 MG/ML 5 ML VIAL IV ONE (14:22)
[2021-08-23] MEDS ORDERED: ETOMIDATE 2 MG/ML 20 ML VIAL IV ONE (14:22)
[2021-08-23] MEDS ORDERED: SUCCINYLCHOLINE CHLORIDE 20 MG/ML 10 ML VIAL IV ONE (14:22)
[2021-08-23] MEDS: cefTRIAXone SODIUM 2,000 MG in DEXTROSE 5% 50 ML IV SCH (14:38)
[2021-08-23] MEDS: PEPTAMEN INTENSE VHP 1.0 CAL 1,000 ML BAG GT SCH (16:52)
[2021-08-23] MEDS: REMDESIVIR 100 MG in SODIUM CHLORIDE 0.9% 230 ML IV SCH (20:16)
[2021-08-23] MEDS: SODIUM CHLORIDE 0.9% 10ML FLUSH IV SCH (20:17)
[2021-08-24] MEDS: ACETAMINOPHEN 1,000 MG/100 ML VIAL IV PRN (01:39)
[2021-08-24] MEDS: ARTIFICIAL TEARS OP OINT 3.5 GM TUBE OP SCH ×6 (04:08→23:15)
[2021-08-24 04:58] LABS: iSTAT Art Bld Gas pCO2 Correct 47 mmHg (35-46); iSTAT Art Bld Gas pH Corrected 7.411 (7.35-7.45); iSTAT Arterial Blood Gas HCO3 30 meg/L (19-24); iSTAT Arterial Blood Gas pCO2 46 mmHg (35-46); iSTAT Arterial Blood Gas pH 7.42 (7.35-7.45); iSTAT Arterial Blood Gas pO2 62 mmHg (80-95); iSTAT Arterial Blood Gas pO2 C 64; iSTAT Carbon Dioxide 31 mmol/L (24-31); iSTAT FiO2 50 %; iSTAT Hematocrit 33 % (37-47); iSTAT Hemoglobin 11.2 g/dl (12.0-16.0); iSTAT Potassium 4.2 mmol/L (3.3-5.0); iSTAT Site Art Line; iSTAT Sodium 138 mmol/L (135-144)
[2021-08-24] MEDS: MIDAZOLAM HCL 125 MG/250 ML BAG IV PRN ×2 (05:17→21:29)
[2021-08-24 06:26] LABS: Basophils # (auto) 0.02 K/uL (0-0.2); Basophils % (auto) 0.1 %; Hematocrit (blood only) 34.9 % (37-47); Hemoglobin 10.3 g/dL (12.0-16.0); Immature Granulocytes # (auto) 0.18 K/uL (0.00-0.02); Immature Granulocytes % (auto) 1.1 %; Lymphocytes # (auto) 0.73 K/uL (1.2-3.4); Lymphocytes % (auto) 4.3 %; Mean Corpuscular Hemoglobin 23.9 pg (25-34); Mean Corpuscular Hgb Conc 29.5 g/dL (32-36); Mean Platelet Volume 10.6 fL (7.4-10.4); Monocytes # (auto) 0.46 K/uL (0.11-0.59); Monocytes % (auto) 2.7 %; Neutrophils # (auto) 15.72 K/uL (1.4-6.5); Neutrophils % (auto) 91.8 %; Platelet Count 223 K/uL (130-400); RDW Coefficient of Variation 15.9 % (11.5-14.5); RDW Standard Deviation 47.8 fL (36.4-46.3); Red Blood Count 4.31 M/uL (4.2-5.4); White Blood Count 17.11 K/uL (4.8-10.8)
[2021-08-24] MEDS: fentaNYL DRIP 1,250 MCG/250 ML BAG IV SCH ×2 (06:47→21:30)
[2021-08-24 07:03] LABS: BUN Creatinine Ratio 37.7 (10-20); Calcium 7.9 mg/dl (8.5-10.1); Creatinine Clr Calc Pharmacy 120.3 ml/min; Est GFR (African American) 125.8 ml/min; Est GFR (Non-African American) 108.5 ml/min; Magnesium 2.9 mg/dl (1.8-2.4); Potassium 4.3 mmol/L (3.5-5.1)
[2021-08-24 07:11] LABS: Phosphorus 2.2 mg/dl (2.5-4.9)
[2021-08-24] MEDS: ASPIRIN 81 MG CHEW PO SCH (08:43)
[2021-08-24] MEDS: VENLAFAXINE HCL 37.5 MG TAB PO SCH ×2 (08:43→21:44)
[2021-08-24] MEDS: LANSOPRAZOLE 30 MG SOLTAB NG SCH (08:43)
[2021-08-24] MEDS: dexAMETHasone 10 MG in SYRINGE 0 ML IV SCH (08:44)
[2021-08-24] MEDS: ENOXAPARIN INJ 40 MG/0.4 ML SYR SQ SCH ×2 (08:44→21:45)
--- NOTE | 2021-08-24 08:50 | XRay Report ---
SINGLE VIEW CHEST CLINICAL HISTORY: Respiratory failure. FINDINGS: An AP, portable, upright chest radiograph is compared to study dated 08/23/2021. Correlation is made with chest CT dated 08/19/2021. The examination is degraded by portable technique and patient rotation. An endotracheal tube, an enteric tube, and a right subclavian central venous catheter are unchanged in position. The cardiomediastinal silhouette is unremarkable. Suspect pneumomediastinum. M ultifocal airspace consolidation is again seen throughout both lungs. This has progressed as compared to yesterday. No definite pneumothorax is seen. The bony thorax is grossly intact. Subcutaneous emph ysema is seen in the lower neck. IMPRESSION: 1. Stable lines and tubes. 2. Multifocal airspace consolidation is again seen throughout both lungs. This appears modestly worse silva as compared to yesterday. 3. Suspect pneumomediastinum. 4. Subcutaneous emphysema is seen in the lower neck. 5. No definite pneumothorax is identified. ACT 112: Negative or not required by law. Electronically signed by: Louie Lopez M.D. 08/24/2021 8:49 AM
--- NOTE | 2021-08-24 11:03 | Critical Care Progress Note ---
Date of Service August 24, 2021 Assessment & Plan (1) Pneumonia due to 2019-nCoV: Plan: Reason Critically Ill: 45-year-old female with acute hypoxic respiratory failure PLAN: Neuro: Sedation: -Versed and fentanyl Neuromuscular blockade -X24 hours discontinued on 08/23 Anxiety: * Goal RASS -2 * Continue venlafaxine Resp: Covid pneumonia: * Continue with dexamethasone for total of 10 days * Continue with remdesivir * Maintain negative fluid balance * Transitioned from high PEEP low FiO2 tables to high FiO2 low PEEP secondary to subcu emphysema -Patient's peak airway pressures were elevated proceeding the neuromuscular blockade Asthma: * No significant bronchospasm on exam * Continue leave albuterol/ipratropium nebulizer treatments Acute hypoxic respiratory failure * Intubation day 3 Fluids/Renal: Maintain negative fluid balance -20 mg Lasix ID: Covid pneumonia Asymptomatic bacteriuria -Rocephin 1 g daily x7 days for urinary and pulmonary coverage day 2 GI/Nutrition: Trickle tube feeds -Can increase tube feedings to goal Heme: DVT prophylaxis: Lovenox 40 mg twice daily Endocrine: ICU hyperglycemia protocol Vascular access: Right subclavian placed 08/22, left arterial line placed 08/22 Code Status: Full Disposition: ICU I have updated Point of contact patient's : Louie: [phone] on condition and prognosis (2) Acute respiratory failure with hypoxia: (3) Asthma: (4) Anxiety: (5) DVT prophylaxis: Admission and Anticipated Discharge Date Admission Date: August 19, 2021 Supervising Physician Co-Signing Physician Notes I have personally spent 35 minutes of critical care time in the direct management of this patient. This is a life/limb threatening event. This includes time spent evaluating patient, direct bedside care, chart review, placing orders, interpretation of diagnostic studies, discussion with consultants, patient, and/or family members regarding treatment decisions, as well as other required patient management activities. This time is exclusive of all separately billable procedures, and teaching time and separate from and in addition to any other critical care service time. Subjective No overnight events, morning chest x-ray noted subcutaneous emphysema and patient is being transitioned from high PEEP low FiO2 table to high FiO2 low PEEP table. Has remained off neuromuscular blockade x24 hours Physical Exam Physical Exam: General: GCS: 3 T. Skin: Warm, dry, Head: Atraumatic Ears, nose, mouth and throat: airway obscured by endotracheal tube -Palpable subcu emphysema Cardiovascular: Normal peripheral perfusion Respiratory: coarse breath sounds, ventilator settings reviewed Gastrointestinal: Non distended Musculoskeletal: No deformity Results & Data Results & Data ([facility]) Vital Signs (Past 12 Hours) Vital Signs Temp Pulse Resp BP Pulse Ox 08/24/21 08:54 37.3 C 83 110/62 91 08/24/21 08:16 84 20 94 08/24/21 07:54 37.3 C 83 111/62 93 08/24/21 06:54 37.3 C 83 20 106/60 93 08/24/21 05:54 37.4 C 84 20 105/61 93 08/24/21 04:54 37.5 C 87 20 104/55 L 92 08/24/21 03:54 37.7 C H 91 H 20 98/59 L 91 08/24/21 02:54 38.0 C H 93 H 20 100/61 94 08/24/21 02:36 96 H 28 H 97 08/24/21 01:54 38.4 C H 08/24/21 01:00 108 H 20 91 08/24/21 00:57 110 H 24 08/23/21 23:54 36.7 C 103 H 20 109/70 88 L Coding Level of Care Code Critical Care 1st 30-74 mins Diagnoses Pneumonia due to 2019-nCoV U07.1; J12.82 Acute respiratory failure with hypoxia J96.01 Asthma J45.909 Anxiety F41.9 DVT prophylaxis Z29.9
[2021-08-24] MEDS ORDERED: FUROSEMIDE 20 MG in SYRINGE 0 ML IV ONE (12:00)
[2021-08-24] MEDS ORDERED: SODIUM PHOSPHATE 3 MMOL/1 ML 5 ML VIAL IV ONE (12:40)
--- NOTE | 2021-08-24 12:42 | Hospitalist Progress Note ---
Date of Service August 24, 2021 Assessment & Plan (1) Acute respiratory failure with hypoxia: Plan: 2/2 covid pneumonia, tachypnea present for about 24 hrs, subsequent intubation 08/23. She was paralyzed and sedated with both now off. Cont to monitor her in ICU Cont vent management per back joiner. (2) Pneumonia due to 2019-nCoV: Plan: Continue daily Decadron and remdesivir, proning as able. (3) Pneumomediastinum: Plan: noted on CXR. Cont to monitor, vent management per back joiner. (4) Asthma: Plan: Continue plan as above. (5) UTI (urinary tract infection): Plan: Empiric Rocephin started pending culture spec & sens. (6) Mitral valve prolapse: (7) Anxiety: Plan: Takes venlafaxine regularly, which she continues. (8) HTN (hypertension): Plan: Cozaar put on hold with low normal pressure. A-line in place now. (9) GERD (gastroesophageal reflux disease): Plan: Cont PPI daily per home regimen. (10) DVT prophylaxis: Plan: Lovenox, PPI She is on trickle tube feeds via OGT Full Code Dispo-cont [facility] care [facility] and [facility]ticipated Discharge Date Admission Date: August 19, 2021 Subjective 45-year-old female with acute respiratory failure secondary to Covid pneumonia She is intubated and sedated, febrile this morning, off paralytics and sedation Review of Systems Review of Systems: Cannot obtain review of systems as patient is intubated and sedated Physical Exam Physical Exam: CONSTITUTIONAL: WNWD, vitals as above, intubated EYES: normal conjunctivae, no scleral icterus ENT: external ear and nose normal, MMM, ETT in place, OG tube in place NECK: trachea midline RESPIRATORY: clear to auscultation bilaterally, no crackles, rales or wheezes CARDIOVASCULAR: reg rate and rhythm, S1 and 2 heard without murmurs, gallops or rubs, no JVD, no peripheral edema, A line in LUE. CHEST: R subclavian central line in place. GASTROINTESTINAL: soft, nontender, ND MUSCULOSKELETAL: sedated, cannot assess SKIN: warm and dry NEUROLOGIC: has not awoken from sedation, intubated, cannot assess Results & Data Results & Data ([facility]) Vital Signs (Past 12 Hours) Vital Signs Temp Pulse Resp BP Pulse Ox 08/24/21 11:30 76 20 92 08/24/21 08:54 37.3 C 83 110/62 91 08/24/21 08:16 84 20 94 08/24/21 07:54 37.3 C 83 111/62 93 08/24/21 06:54 37.3 C 83 20 106/60 93 08/24/21 05:54 37.4 C 84 20 105/61 93 08/24/21 04:54 37.5 C 87 20 104/55 L 92 08/24/21 03:54 37.7 C H 91 H 20 98/59 L 91 08/24/21 02:54 38.0 C H 93 H 20 100/61 94 08/24/21 02:36 96 H 28 H 97 08/24/21 01:54 38.4 C H 08/24/21 01:00 108 H 20 91 08/24/21 00:57 110 H 24 Laboratory Results Short CBC 08/24/21 Range/Units 05:34 WBC 17.11 H (4.8-10.8) K/uL Hgb 10.3 L (12.0-16.0) g/dL Hct 34.9 L (37-47) % Plt Count 223 (130-400) K/uL BMP 08/24/21 05:34 Sodium 138 Potassium 4.3 Chloride 104 Carbon Dioxide 28 BUN 24 H Creatinine 0.64 Glucose 134 H Calcium 7.9 L Liver Function 08/24/21 Range/Units 05:34 AST 9 L (15-37) U/L ALT 9 L (12-78) U/L Diagnostic Findings Chest X-Ray 08/24/21 07:00 SINGLE VIEW CHEST CLINICAL HISTORY: Respiratory failure. FINDINGS: An AP, portable, upright chest radiograph is compared to study dated 08/23/2021. Correlation is made with chest CT dated 08/19/2021. The examination is degraded by portable technique and patient rotation. An endotracheal tube, an enteric tube, and a right subclavian central venous catheter are unchanged in position. The cardiomediastinal silhouette is unremarkable. Suspect pneumomediastinum. Multifocal airspace consolidation is again seen throughout both lungs. This has progressed as compared to yesterday. No definite pneumothorax is seen. The bony thorax is grossly intact. Subcutaneous emphysema is seen in the lower neck. IMPRESSION: 1. Stable lines and tubes. 2. Multifocal airspace consolidation is again seen throughout both lungs. This appears modestly worsened as compared to yesterday. 3. Suspect pneumomediastinum. 4. Subcutaneous emphysema is seen in the lower neck. 5. No definite pneumothorax is identified. ACT 112: Negative or not required by law. Electronically signed by: Louie Lopez M.D. 08/24/2021 8:49 AM Medications Administered Current Inpatient Medications Albuterol (Albuterol Hfa 8 Gm Inhaler) 2 puffs INH Q4H PRN PRN Reason: Shortness Of Breath Or Wheezing Stop: 09/19/21 02:33 Aspirin (Aspirin 81 Mg Chew) 81 mg PO QAM [facility] Stop: 09/22/21 08:59 Last Admin: 08/24/21 08:43 Dose: 81 mg Documented by: Enoxaparin Sodium (Enoxaparin Inj 40 Mg/0.4 Ml Syr) 40 mg SQ Q12H MARTINEZ Stop: 09/19/21 21:29 Last Admin: 08/24/21 08:44 Dose: 40 mg Documented by: Fentanyl Citrate (Fentanyl Bolus From Bag) 50 mcg IV Q60M PRN PRN Reason: Pain or Agitation Stop: 09/05/21 10:49 Last Admin: 08/23/21 05:49 Dose: 50 mcg Documented by: Fluticasone/Vilanterol (Fluticasone/Vilanterol 100/25mcg 14 Puffs/Inhaler) 1 puffs INH QAM MARTINEZ Stop: 09/19/21 08:59 Last Admin: 08/22/21 09:49 Dose: Not Given Documented by: Dexamethasone 10 mg/ Syringe 2.5 mls @ 1 mls/min IV DAILY MARTINEZ Stop: 08/30/21 08:59 Last Admin: 08/24/21 08:44 Dose: 1 mls/min Documented by: Acetaminophen (Ofirmev) 1,000 mg in 100 mls @ 400 mls/hr IV Q8H PRN PRN Reason: pain/fever Stop: 08/25/21 09:19 Last Infusion: 08/24/21 01:58 Dose: Infused Documented by: Fentanyl Citrate (Fentanyl Drip) 1,250 mcg in 250 mls @ 10 mls/hr IV .Q25H MARTINEZ; Protocol Stop: 09/05/21 10:49 Last Titration: 08/24/21 10:08 Dose: 50 mcg/hr, 10 mls/hr Documented by: Midazolam HCl (Versed) 125 mg in 250 mls @ 10 mls/hr IV .Q25H PRN; Protocol PRN Reason: Sedation Stop: 09/21/21 12:05 Last Titration: 08/24/21 10:08 Dose: 5 mg/hr, 10 mls/hr Documented by: Cisatracurium Besylate 40 mg/ (Sodium Chloride) 100 mls @ 0 mls/hr IV .Q0M MARTINEZ; Protocol Stop: 09/21/21 14:29 Last Admin: 08/23/21 19:11 Dose: Not Given Documented by: Ceftriaxone Sodium 2,000 mg/ (Dextrose) 70 mls @ 100 mls/hr IV 1400 MARTINEZ; Protocol Stop: 08/30/21 13:59 Last Infusion: 08/23/21 15:20 Dose: Infused Documented by: Ipratropium [place] (Ipratropium [place] Neb Soln 0.02% 2.5 Ml Vial) 0.5 mg INH Q6R PRN PRN Reason: Wheezing Stop: 09/19/21 06:59 Lansoprazole (Lansoprazole 30 Mg Soltab) 30 mg NG DAILY MARTINEZ Stop: 09/22/21 08:59 Last Admin: 08/24/21 08:43 Dose: 30 mg Documented by: Levalbuterol HCl (Levalbuterol Hcl 1.25 Mg/3 Ml Neb) 1.25 mg NEB Q2H PRN PRN Reason: Shortness Of Breath Or Wheezing Stop: 09/19/21 02:01 Levalbuterol HCl (Levalbuterol 1.25mg/0.5ml Neb) 1.25 mg INH Q6R PRN PRN Reason: Wheezing Stop: 09/19/21 06:59 Losartan Potassium (Losartan Potassium 25 Mg Tab) 25 mg PO QAM MARTINEZ Stop: 09/19/21 08:59 Last Admin: 08/21/21 10:43 Dose: 25 mg Documented by: Midazolam HCl (Midazolam Bolus From Bag) 2 mg IV Q60M PRN PRN Reason: Sedation Stop: 09/21/21 12:05 Last Admin: 08/23/21 05:49 Dose: 2 mg Documented by: Multi-Ingredient Cream (Artificial Tears Op Oint 3.5 Gm Tube) 1 appln OP Q4 MARTINEZ Stop: 09/21/21 15:59 Last Admin: 08/24/21 08:45 Dose: Not Given Documented by: Nitroglycerin (Nitroglycerin Sl 0.4 Mg/Tab Tab) 0.4 mg SL UD PRN PRN Reason: Chest Pain Stop: 09/19/21 02:01 Nutritional Formula (Peptamen Intense Vhp 1.0 Jair 1,000 Ml Bag) 1,000 ml GT CONT MARTINEZ; Protocol Stop: 09/21/21 14:44 Last Admin: 08/23/21 16:52 Dose: 1,000 ml Documented by: Ondansetron HCl (Ondansetron Inj 2 Mg/Ml 2 Ml Vial) 4 mg IV Q6H PRN PRN Reason: Nausea Stop: 09/19/21 02:01 Polyethylene Glycol (Polyethylene (Miralax) 17 Gm Pack) 17 gm PO DAILY PRN PRN Reason: Constipation Stop: 09/19/21 02:01 Sodium Phosphate (Sodium Phosphate 3 Mmol/1 Ml 5 Ml Vial) 15 mmol IV ONE ONE Stop: 08/24/21 12:41 Venlafaxine HCl (Venlafaxine Hcl 37.5 Mg Tab) 37.5 mg PO BID [facility] Stop: 09/21/21 20:59 Last Admin: 08/24/21 08:43 Dose: 37.5 mg Documented by:
[2021-08-24] MEDS ORDERED: SODIUM PHOSPHATE 15 MMOL in SODIUM CHLORIDE 0.9% 250 ML IV ONE (13:00)
[2021-08-24] MEDS: PEPTAMEN INTENSE VHP 1.0 CAL 1,000 ML BAG GT SCH (15:18)
[2021-08-24] MEDS: cefTRIAXone SODIUM 2,000 MG in DEXTROSE 5% 50 ML IV SCH (15:19)
[2021-08-25] MEDS: fentaNYL DRIP 1,250 MCG/250 ML BAG IV SCH ×3 (00:30→19:10)
[2021-08-25] MEDS: ARTIFICIAL TEARS OP OINT 3.5 GM TUBE OP SCH ×5 (04:42→20:53)
[2021-08-25 05:19] LABS: iSTAT Art Bld Gas pCO2 Correct 43 mmHg (35-46); iSTAT Art Bld Gas pH Corrected 7.487 (7.35-7.45); iSTAT Arterial Blood Gas HCO3 33 meg/L (19-24); iSTAT Arterial Blood Gas pCO2 42 mmHg (35-46); iSTAT Arterial Blood Gas pO2 53 mmHg (80-95); iSTAT Arterial Blood Gas pO2 C 56; iSTAT Carbon Dioxide 34 mmol/L (24-31); iSTAT FiO2 70 %; iSTAT Hematocrit 32 % (37-47); iSTAT Hemoglobin 10.9 g/dl (12.0-16.0); iSTAT Site Art Line; iSTAT Sodium 140 mmol/L (135-144)
[2021-08-25 06:13] LABS: Hematocrit (blood only) 33.4 % (37-47); Hemoglobin 10.1 g/dL (12.0-16.0); Mean Corpuscular Hemoglobin 23.7 pg (25-34); Mean Corpuscular Hgb Conc 30.2 g/dL (32-36); Mean Corpuscular Volume 78.4 fL (80-100); Mean Platelet Volume 10.9 fL (7.4-10.4); Platelet Count 238 K/uL (130-400); RDW Coefficient of Variation 15.7 % (11.5-14.5); RDW Standard Deviation 45.4 fL (36.4-46.3); Red Blood Count 4.26 M/uL (4.2-5.4); White Blood Count 18.12 K/uL (4.8-10.8)
[2021-08-25 06:45] LABS: Basophils # (auto) 0.04 K/uL (0-0.2); Basophils % (auto) 0.2 %; Immature Granulocytes # (auto) 0.11 K/uL (0.00-0.02); Immature Granulocytes % (auto) 0.6 %; Lymphocytes % (auto) 5.5 %; Monocytes # (auto) 1.06 K/uL (0.11-0.59); Monocytes % (auto) 5.8 %; Neutrophils # (auto) 15.91 K/uL (1.4-6.5); Neutrophils % (auto) 87.9 %
[2021-08-25 06:48] LABS: BUN Creatinine Ratio 49.9 (10-20); Calcium 7.5 mg/dl (8.5-10.1); Creatinine Clr Calc Pharmacy 139.6 ml/min; Est GFR (African American) 131.4 ml/min; Est GFR (Non-African American) 113.4 ml/min; Magnesium 2.3 mg/dl (1.8-2.4); Potassium 4.1 mmol/L (3.5-5.1)
[2021-08-25 06:49] LABS: Phosphorus 2.5 mg/dl (2.5-4.9)
--- NOTE | 2021-08-25 08:08 | XRay Report ---
XR chest 1V portable INDICATION: MN ^Resp failure . TECHNIQUE: Single frontal radiograph of the chest was obtained. Comparison: Comparison is made to chest one view 08/24/2021 FINDINGS: Lines and tubes are stable. The cardiomediastinal silhouette is normal. Redemonstration of airspace o pacities, right greater than left. No evidence of pleural effusion or pneumothorax. No evidence of pn eumomediastinum. Previously noted soft tissue emphysema in the neck is not well seen today. IMPRESSION: Stable tubes. Multifocal airspace opacities, similar in appearance to prior exam. ACT 112: Negative or not required by law. Electronically signed by: Ryan Ortiz M.D. 08/25/2021 8:07 AM
[2021-08-25] MEDS: dexAMETHasone 10 MG in SYRINGE 0 ML IV SCH (08:24)
[2021-08-25] MEDS: ASPIRIN 81 MG CHEW PO SCH (08:24)
[2021-08-25] MEDS: VENLAFAXINE HCL 37.5 MG TAB PO SCH ×2 (08:24→20:54)
[2021-08-25] MEDS: LANSOPRAZOLE 30 MG SOLTAB NG SCH (08:24)
[2021-08-25] MEDS: ENOXAPARIN INJ 40 MG/0.4 ML SYR SQ SCH ×2 (08:25→20:54)
[2021-08-25] MEDS ORDERED: STAT IV Infusion **Titration per Protocol STA (10:39)
[2021-08-25] MEDS ORDERED: PROPOFOL BOLUS FROM BAG IV PRN (10:39)
[2021-08-25] MEDS: propofoL 1,000 MG/100 ML VIAL IV SCH ×2 (11:22→19:25)
--- NOTE | 2021-08-25 13:36 | Hospitalist Progress Note ---
Date of Service August 25, 2021 Assessment & Plan (1) Acute respiratory failure with hypoxia: Plan: 2/2 covid pneumonia, tachypnea present for about 24 hrs, subsequent intubation 08/23. Remains on propofol/Cisatracurium/fentanyl. Critical care is on board. Vent management as per CCM. (2) Pneumonia due to 2019-nCoV: Plan: Remains on Decadron. Completed course of remdesivir (3) Pneumomediastinum: Plan: noted on CXR. Cont to monitor, vent management per channel account manager. (4) Asthma: Plan: Continue plan as above. (5) UTI (urinary tract infection): Plan: E. Coli. Continue with ceftriaxone. (6) Mitral valve prolapse: (7) Anxiety: Plan: Takes venlafaxine regularly, which she continues. (8) HTN (hypertension): Plan: Cozaar on hold due to hypotension. A-line is in place. (9) GERD (gastroesophageal reflux disease): Plan: Cont PPI daily per home regimen. (10) DVT prophylaxis: Plan: Lovenox, PPI She is on trickle tube feeds via OGT Full Code Dispo-cont ICU care Admission and Anticipated Discharge Date Admission Date: August 19, 2021 Subjective Patient mechanically ventilated/sedated. Review of Systems Review of Systems: Unobtainable due to endotracheal tube Physical Exam Physical Exam: General: On vent HENT: NCAT, MMM, EOMI Eyes: PERRLA CVS: normal rate and rhythm Resp: b/l good airway Abdomen: Soft, ND/NT Extremities: No c/c/e Neuro: face symmetric, strength grossly equal, no focal deficit Skin: warm and dry, no rashes/lesions/errythema MSK: normal ROM, no joint swelling/erythema Results & Data Results & Data ([facility]) Vital Signs (Past 12 Hours) Vital Signs Temp Pulse Resp BP Pulse Ox 08/25/21 11:01 77 22 88 L 08/25/21 07:50 78 23 89 L 08/25/21 05:55 37.6 C H 78 119/69 91 08/25/21 04:54 37.6 C H 80 119/66 90 08/25/21 04:24 87 22 89 L 08/25/21 03:54 37.7 C H 79 120/66 87 L 08/25/21 02:55 37.9 C H 83 116/69 89 L 08/25/21 01:54 37.9 C H 84 122/70 89 L
--- NOTE | 2021-08-25 13:39 | Critical Care Progress Note ---
Date of Service August 25, 2021 Assessment & Plan (1) Pneumonia due to 2019-nCoV: (2) Acute respiratory failure with hypoxia: (3) Asthma: (4) Anxiety: (5) DVT prophylaxis: Plan: Reason Critically Ill: 45-year-old female with acute hypoxic respiratory failure PLAN: Neuro: Sedation: -Fentanyl and propofol Neuromuscular blockade -X24 hours discontinued on 08/23 Anxiety: Goal RASS -1 Continue venlafaxine Resp: VDRF --> acute hypoxic respiratory failure secondary to Covid pneumonia: Continue with dexamethasone for total of 10 days S/p remdesivir Maintain negative fluid balance Continue with lung protective ventilation High PEEP, low tidal volume to keep Plateau < 30 with permissive hypercapnea if need be. Monitor ABGs Asthma: No significant bronchospasm on exam Continue leave albuterol/ipratropium nebulizer treatments Fluids/Renal: Monitor BUNs/creatinine Avoid nephrotoxic medication Replace electrolytes as needed ID: Covid pneumonia Asymptomatic E. coli bacteriuria -Rocephin 1 g daily x7 days GI/Nutrition: Trickle tube feeds -Can increase tube feedings to goal Heme: Leukocytosis likely from steroid Continue to monitor Endocrine: ICU hyperglycemia protocol --Prophylaxis VTE: Lovenox GI: Lansoprazole Lines: Right subclavian placed 08/22, left arterial line placed 08/22, positive Ott Diet: Tube feeds Plan: In/out: -1185, urine output 2000 AB.5/42/53 on 70% PEEP of 8 I increased the PEEP to 10, went down on FiO2 60% DC Versed. Start the patient on low-dose propofol to keep the patient RASS -1 T-max 37.6. Likely from underlying COVID-19 Continue to monitor Chest x-ray does not show any signs of pneumomediastinum, mild improvement in the infiltrate Patient's : Louie: [phone] I have personally spent 41 minutes of critical care time in the direct management of this patient. This is a life/limb threatening event. This includes time spent evaluating patient, direct bedside care, chart review, placing orders, interpretation of diagnostic studies, discussion with consultants, patient, and family members, as well as other required patient management activities. This time is exclusive of all separately billable procedures, and teaching time and separate from and in addition to any other critical care service time. Please note the above document was generated using voice recognition software. It may contain grammatical, syntax or spelling errors. Admission and Anticipated Discharge Date Admission Date: August 19, 2021 Subjective Patient seen and examined at bedside. No acute distress, no adverse events overnight Patient was on PEEP of 8, 70% saturating 89-90% She was on Versed and fentanyl Review of Systems Review of Systems: Unobtainable due to endotracheal tube Physical Exam Physical Exam: Constitutional: No acute distress HEENT: PERRLA, positive ETT, no subcu crepitus Respiratory system: Decreased air entry bilaterally, no wheeze, rhonchi, positive crackles bilateral lower lobes CVS: S1-S2 positive, no murmurs or gallops Abdomen: Soft, nontender, nondistended, positive bowel sounds x4 Extremities: +2 pulses bilaterally radialis/ dorsalis pedis, no cyanosis, no edema Neuro: Intubated, breathing over the vent Psych: Unable to assess G/U: Positive Ott Skin: no rashes, warm and dry Lymphatic: no cervical or axillary lymphadenopathy Results & Data Results & Data ([facility]) Vital Signs (Past 12 Hours) Vital Signs Temp Pulse Resp BP Pulse Ox 08/25/21 11:01 77 22 88 L 08/25/21 07:50 78 23 89 L 08/25/21 05:55 37.6 C H 78 119/69 91 08/25/21 04:54 37.6 C H 80 119/66 90 08/25/21 04:24 87 22 89 L 08/25/21 03:54 37.7 C H 79 120/66 87 L 08/25/21 02:55 37.9 C H 83 116/69 89 L 08/25/21 01:54 37.9 C H 84 122/70 89 L 08/25/21 05:15 08/25/21 05:15 Coding Level of Care Code Critical Care 1st 30-74 mins Diagnoses Pneumonia due to 2019-nCoV U07.1; J12.82 Acute respiratory failure with hypoxia J96.01 Asthma J45.909 Anxiety F41.9 DVT prophylaxis Z29.9 Time Spent (min) 41
[2021-08-25] MEDS ORDERED: FUROSEMIDE 20 MG in SYRINGE 0 ML IV ONE (13:43)
[2021-08-25] MEDS: TUBE FEEDING WATER FLUSH OG SCH ×2 (13:45→17:11)
[2021-08-25] MEDS ORDERED: FUROSEMIDE 40 MG/4 ML VIAL IV ONE (14:00)
--- NOTE | 2021-08-25 15:31 | XRay Report ---
SINGLE VIEW CHEST CLINICAL HISTORY: Hypoxia. FINDINGS: 2 AP, portable, upright chest radiographs are compared to study performed earlier the same day 08/25/2021 and correlated with chest CT dated 08/19/2021. The examination is degraded by portable t echnique and patient rotation. An endotracheal tube, an enteric tube, and a right subclavian central venous catheter are unchanged in position. There is a large right pneumothorax with near complete ate lectasis of the right lung. There is leftward deviation of the trachea indicating tension pneumothora x. The heart is top normal for projection. There is volume loss of the left lung with patchy airspace consolidation seen throughout. No large pleural effusion is identified. The bony thorax is grossly i ntact. Subcutaneous emphysema is noted in the lower neck. IMPRESSION: 1. There is a large right-sided tension pneumothorax with near-complete atelectasis of the right lung . 2. Airspace consolidation is seen throughout the left lung. 3. Stable lines and tubes. ACT 112: Negative or not required by law. Electronically signed by: Louie Lopez M.D. 08/25/2021 3:30 PM
--- NOTE | 2021-08-25 16:06 | XRay Report ---
XR chest 1V portable HISTORY: 45 years-old Female s/p right chest tube placement acute respiratory failure. Status post p lacement of a right-sided chest tube COMPARISON: Chest radiograph 08/25/2021 TECHNIQUE: Portable AP view of the chest FINDINGS: Endotracheal tube overlies the midline, 2.7 cm superior to the mu. Enteric tube courses into the stomach with distal tip outside the field of view. Right subclavian central venous catheter distal ti p projects over the right atrium. Status post placement of a right basilar pigtail catheter. There is resolution of the previously described tension pneumothorax. Tiny residual right apical pneumothorax demonstrates pleural separation of 11 mm. Subcutaneous emphysema of the right supraclavicular tissue s and right lateral chest wall. Cardiomegaly. Trace pleural effusions suggested. Multifocal bilateral airspace opacities, right great er than left have progressed. Bones appear grossly intact. IMPRESSION: 1. Status post placement of a right basilar chest tube. Tiny right apical residual pneumothorax. 2. Additional lines and tubes as above. 3. Progressively worsened right greater than left airspace opacities. ACT 112: Negative or not required by law. The above report was generated using voice recognition software. It may contain grammatical, syntax o r spelling errors. Electronically signed by: Faisal Eugene M.D. 08/25/2021 4:05 PM
[2021-08-25] MEDS: cefTRIAXone SODIUM 2,000 MG in DEXTROSE 5% 50 ML IV SCH (16:37)
--- NOTE | 2021-08-25 16:45 | Procedure Note ---
Procedure Note Date of Service August 25, 2021 Note Procedure: Pigtail chest tube insertion Beauty Culture Teacher: Dr. Huang Ridley Indication: Tension pneumothorax Consent: Emergent consent was applied Anesthesia: General anesthesia Procedure: Consent was verified and timeout performed. Appropriate imaging studies were reviewed prior to the procedure. Patient was placed in a seated position. Appropriate site above the diaphragm on the right midaxillary line fourth intercostal space for chest tube insertion was selected. The skin was prepped and draped in normal sterile fashion. Lidocaine was used for local analgesia. Fluid was aspirated via the finder needle. A small skin jeannette was made with the scalpel and the catheter over the needle apparatus was advanced over the rib into the pleural space. With the help of guidewire and Seldinger technique, 14 [place] pigtail catheter was inserted and connected to Pleur-evac. +1 continuous air leak was appreciated after the procedure Chest x-ray to follow The patient tolerated the procedure without obvious complication Complications: None Blood loss: None Coding CPT Codes Pulmonary/Thoracic - Pulmonary and Thoracic: 90025 Tube thoracostomy ([id number]) [facility] [place]) Pulmonary/Thoracic Procedure 1: Pulmonary and Thoracic: 48314 Tube thoracostomy
[2021-08-25] MEDS: PEPTAMEN INTENSE VHP 1.0 CAL 1,000 ML BAG GT SCH (17:41)
[2021-08-26] MEDS: ARTIFICIAL TEARS OP OINT 3.5 GM TUBE OP SCH ×6 (00:33→20:44)
[2021-08-26] MEDS: TUBE FEEDING WATER FLUSH OG SCH ×7 (01:22→22:20)
[2021-08-26] MEDS: propofoL 1,000 MG/100 ML VIAL IV SCH ×2 (02:41→11:43)
[2021-08-26] MEDS: fentaNYL DRIP 1,250 MCG/250 ML BAG IV SCH ×2 (02:41→11:44)
[2021-08-26 04:47] LABS: iSTAT Art Bld Gas pCO2 Correct 43 mmHg (35-46); iSTAT Art Bld Gas pH Corrected 7.451 (7.35-7.45); iSTAT Arterial Blood Gas HCO3 30 meg/L (19-24); iSTAT Arterial Blood Gas pCO2 43 mmHg (35-46); iSTAT Arterial Blood Gas pH 7.45 (7.35-7.45); iSTAT Arterial Blood Gas pO2 66 mmHg (80-95); iSTAT Arterial Blood Gas pO2 C 66; iSTAT Carbon Dioxide 31 mmol/L (24-31); iSTAT Hematocrit 31 % (37-47); iSTAT Hemoglobin 10.5 g/dl (12.0-16.0); iSTAT Potassium 4.5 mmol/L (3.3-5.0); iSTAT Site Art Line; iSTAT Sodium 141 mmol/L (135-144)
[2021-08-26 07:13] LABS: Basophils # (auto) 0.03 K/uL (0-0.2); Basophils % (auto) 0.2 %; Hematocrit (blood only) 32.3 % (37-47); Hemoglobin 9.9 g/dL (12.0-16.0); Immature Granulocytes # (auto) 0.08 K/uL (0.00-0.02); Immature Granulocytes % (auto) 0.6 %; Lymphocytes # (auto) 0.76 K/uL (1.2-3.4); Mean Corpuscular Hemoglobin 23.9 pg (25-34); Mean Corpuscular Hgb Conc 30.7 g/dL (32-36); Mean Corpuscular Volume 77.8 fL (80-100); Mean Platelet Volume 10.6 fL (7.4-10.4); Monocytes # (auto) 1.23 K/uL (0.11-0.59); Monocytes % (auto) 9.7 %; Neutrophils # (auto) 10.56 K/uL (1.4-6.5); Neutrophils % (auto) 83.5 %; Platelet Count 241 K/uL (130-400); RDW Coefficient of Variation 15.9 % (11.5-14.5); RDW Standard Deviation 45.9 fL (36.4-46.3); Red Blood Count 4.15 M/uL (4.2-5.4); White Blood Count 12.66 K/uL (4.8-10.8)
[2021-08-26 07:51] LABS: BUN Creatinine Ratio 47.4 (10-20); Calcium 7.9 mg/dl (8.5-10.1); Creatinine Clr Calc Pharmacy 148.1 ml/min; Est GFR (African American) 133.8 ml/min; Est GFR (Non-African American) 115.5 ml/min; Magnesium 2.8 mg/dl (1.8-2.4); Potassium 4.6 mmol/L (3.5-5.1)
[2021-08-26 07:57] LABS: Phosphorus 3.4 mg/dl (2.5-4.9)
[2021-08-26] MEDS ORDERED: FUROSEMIDE 40 MG in SYRINGE 0 ML IV ONE (08:07)
[2021-08-26] MEDS ORDERED: FUROSEMIDE 40 MG/4 ML VIAL IV SCH (08:30)
[2021-08-26] MEDS: ASPIRIN 81 MG CHEW PO SCH (08:36)
[2021-08-26] MEDS: dexAMETHasone 10 MG in SYRINGE 0 ML IV SCH (08:36)
[2021-08-26] MEDS: VENLAFAXINE HCL 37.5 MG TAB PO SCH ×2 (08:37→22:19)
[2021-08-26] MEDS: ENOXAPARIN INJ 40 MG/0.4 ML SYR SQ SCH ×2 (08:37→22:19)
[2021-08-26] MEDS: MULTI VIT W/MINERALS LIQUID 15 ML UDP NG SCH (08:37)
[2021-08-26] MEDS: LANSOPRAZOLE 30 MG SOLTAB NG SCH (08:37)
--- NOTE | 2021-08-26 09:24 | Critical Care Progress Note ---
Date of Service August 26, 2021 Assessment & Plan (1) Pneumonia due to 2019-nCoV: (2) Acute respiratory failure with hypoxia: (3) Asthma: (4) Anxiety: (5) DVT prophylaxis: Plan: Reason Critically Ill: 45-year-old female with acute hypoxic respiratory failure PLAN: Neuro: Sedation: -Fentanyl and propofol Neuromuscular blockade -X24 hours discontinued on 08/23 Anxiety: Goal RASS -1 Continue venlafaxine Resp: VDRF --> acute hypoxic respiratory failure secondary to Covid pneumonia: Continue with dexamethasone for total of 10 days S/p remdesivir Maintain negative fluid balance Continue with lung protective ventilation High PEEP, low tidal volume to keep Plateau < 30 with permissive hypercapnea if need be. Monitor ABGs Spontaneous right-sided pneumothorax Status post chest tube placement 08/25/2021 Continuous air leak appreciated Asthma: No significant bronchospasm on exam Continue leave albuterol/ipratropium nebulizer treatments Fluids/Renal: Monitor BUNs/creatinine Avoid nephrotoxic medication Replace electrolytes as needed ID: Covid pneumonia Asymptomatic E. coli bacteriuria -Rocephin 1 g daily x7 days GI/Nutrition: Trickle tube feeds -Can increase tube feedings to goal Heme: Leukocytosis likely from steroid Continue to monitor Endocrine: ICU hyperglycemia protocol --Prophylaxis VTE: Lovenox GI: Lansoprazole Lines: Right subclavian placed 08/22, left arterial line placed 08/22, positive Ott, Right sided pigtail catheter 08/25/21 Diet: Tube feeds Plan: In/out: Positive 470, urine output 850 AB.45/43/66 on PEEP of 8, 70% Patient still has small persistent pneumothorax on the right side. Patient has continuous air leak I will increase the suction to -40 The patient still has continuous air leak and CT surgery will have to be considered Lasix 40 mg will be given to the patient today Patient was called and updated regarding patient's condition. Patient's : Louie: [phone] I have personally spent 37 minutes of critical care time in the direct management of this patient. This is a life/limb threatening event. This includes time spent evaluating patient, direct bedside care, chart review, placing orders, interpretation of diagnostic studies, discussion with consultants, patient, and family members, as well as other required patient management activities. This time is exclusive of all separately billable procedures, and teaching time and separate from and in addition to any other critical care service time. Please note the above document was generated using voice recognition software. It may contain grammatical, syntax or spelling errors. Admission and Anticipated Discharge Date Admission Date: August 19, 2021 Subjective Patient seen and examined at bedside. No acute distress On propofol and fentanyl Patient was on 70% FiO2, PEEP of 8 at the time of examination saturating 95% I went down to PEEP of 60%. Review of Systems Review of Systems: Unobtainable due to endotracheal tube Physical Exam Physical Exam: Constitutional: No acute distress HEENT: PERRLA, positive ETT Respiratory system: Decreased air entry bilaterally, no wheeze, rhonchi, positive crackles bilateral lower lobes CVS: S1-S2 positive, no murmurs or gallops Abdomen: Soft, nontender, nondistended, positive bowel sounds x4 Extremities: +2 pulses bilaterally radialis/ dorsalis pedis, no cyanosis, no edema Neuro: Intubated and sedated Psych: Unable to assess G/U: Positive Ott Right-sided pigtail catheter in place Skin: no rashes, warm and dry Lymphatic: no cervical or axillary lymphadenopathy Results & Data Results & Data ([facility]) Vital Signs (Past 12 Hours) Vital Signs Temp Pulse Resp BP Pulse Ox 08/26/21 08:55 37.2 C 57 L 136/84 91 08/26/21 08:09 62 20 91 08/26/21 08:00 58 L 08/26/21 07:55 37.2 C 61 122/75 90 08/26/21 03:13 60 20 91 08/26/21 00:55 37.0 C 62 124/75 91 08/26/21 00:05 61 08/25/21 23:58 64 20 91 08/25/21 23:55 37.0 C 59 L 122/73 92 08/25/21 22:55 37.1 C 61 123/74 92 08/25/21 21:55 37.1 C 63 123/73 92 08/26/21 06:07 08/26/21 06:07 Coding Level of Care Code Critical Care 1st 30-74 mins Diagnoses Pneumonia due to 2019-nCoV U07.1; J12.82 Acute respiratory failure with hypoxia J96.01 Asthma J45.909 Anxiety F41.9 DVT prophylaxis Z29.9 Time Spent (min) 37
--- NOTE | 2021-08-26 09:31 | XRay Report ---
XR chest 1V portable HISTORY: Respiratory failure. Follow-up. COMPARISON: Chest 08/25/2021. FINDINGS: Right basilar chest tube remains unchanged in position. Right chest wall subcutaneous emphy sema has slightly improved. Small to moderate right pneumothorax have slightly increased in size. Thi s currently demonstrates a maximal pleural gap of 1.4 cm, previous measuring 1.1 cm. The heart is nor mal in size. Nasogastric tube terminates below the diaphragm. The tip is not seen on this study. Endo tracheal tube terminates 2.2 cm from the mu. Patchy bilateral airspace opacities have slightly im proved. IMPRESSION: 1. Slight increase in size in the small to moderate right pneumothorax. The right basilar chest tube remains unchanged in position. 2. Satisfactory support line placement. 3. Patchy bilateral airspace opacities have slightly improved. 4. This finding was called/faxed to the referring physician following dictation. ACT 112: Negative or not required by law. Electronically signed by: Maxwell Thapa M.D. 08/26/2021 9:30 AM
--- NOTE | 2021-08-26 12:51 | Hospitalist Progress Note ---
Date of Service August 26, 2021 Assessment & Plan (1) Acute respiratory failure with hypoxia: Plan: 2/2 covid pneumonia, tachypnea present for about 24 hrs, subsequent intubation 08/23. Complicated by spontaneous pneumothorax s/p right chest tube on 08/25 Remains on propofol/fentanyl. Critical care is on board. Vent management as per CCM. (2) Pneumonia due to 2019-nCoV: Plan: Remains on Decadron. Completed course of remdesivir (3) Pneumomediastinum: Plan: noted on CXR. Cont to monitor, vent management per equipment technician. (4) Asthma: Plan: Continue plan as above. (5) UTI (urinary tract infection): Plan: E. Coli. Continue with ceftriaxone. (6) Mitral valve prolapse: (7) Anxiety: Plan: Takes venlafaxine regularly, which she continues. (8) HTN (hypertension): Plan: Cozaar on hold due to hypotension. A-line is in place. (9) GERD (gastroesophageal reflux disease): Plan: Cont PPI daily per home regimen. (10) DVT prophylaxis: Plan: Lovenox, PPI She is on trickle tube feeds via OGT Full Code Dispo-cont ICU care Admission and Anticipated Discharge Date Admission Date: August 19, 2021 Subjective Patient seen and examined at bedside. No acute distress On propofol and fentanyl Review of Systems Review of Systems: Unobtainable due to cognitive status Physical Exam Physical Exam: General: On vent HENT: NCAT, MMM, EOMI Eyes: PERRLA CVS: normal rate and rhythm Resp: b/l good airway Abdomen: Soft, ND/NT Extremities: No c/c/e Neuro: face symmetric, strength grossly equal, no focal deficit Skin: warm and dry, no rashes/lesions/errythema MSK: normal ROM, no joint swelling/erythema Results & Data Results & Data ([facility]) Vital Signs (Past 12 Hours) Vital Signs Temp Pulse Resp BP Pulse Ox 08/26/21 11:55 37.5 C 71 123/74 89 L 08/26/21 10:55 37.5 C 69 118/70 91 08/26/21 09:55 37.4 C 76 123/75 90 08/26/21 08:55 37.2 C 57 L 136/84 91 08/26/21 08:09 62 20 91 08/26/21 08:00 58 L 08/26/21 07:55 37.2 C 61 122/75 90 08/26/21 03:13 60 20 91 08/26/21 00:55 37.0 C 62 124/75 91
[2021-08-26] MEDS: PEPTAMEN INTENSE VHP 1.0 CAL 1,000 ML BAG GT SCH (15:24)
[2021-08-26] MEDS: cefTRIAXone SODIUM 2,000 MG in DEXTROSE 5% 50 ML IV SCH (15:30)
[2021-08-26] MEDS: IPRATROPIUM BROMIDE NEB SOLN 0.02% 2.5 ML VIAL INH PRN (19:20)
[2021-08-26] MEDS: LEVALBUTEROL 1.25MG/0.5ML NEB INH PRN (19:20)
[2021-08-27] MEDS: ARTIFICIAL TEARS OP OINT 3.5 GM TUBE OP SCH ×6 (00:14→21:54)
[2021-08-27] MEDS: propofoL 1,000 MG/100 ML VIAL IV SCH ×5 (01:18→21:56)
[2021-08-27] MEDS: fentaNYL DRIP 1,250 MCG/250 ML BAG IV SCH ×5 (01:18→21:55)
[2021-08-27] MEDS: TUBE FEEDING WATER FLUSH OG SCH ×6 (01:22→21:56)
[2021-08-27] MEDS: IPRATROPIUM BROMIDE NEB SOLN 0.02% 2.5 ML VIAL INH PRN (03:12)
[2021-08-27] MEDS: LEVALBUTEROL 1.25MG/0.5ML NEB INH PRN (03:12)
[2021-08-27 04:43] LABS: iSTAT Art Bld Gas pCO2 Correct 42 mmHg (35-46); iSTAT Art Bld Gas pH Corrected 7.468 (7.35-7.45); iSTAT Arterial Blood Gas HCO3 31 meg/L (19-24); iSTAT Arterial Blood Gas pCO2 42 mmHg (35-46); iSTAT Arterial Blood Gas pH 7.47 (7.35-7.45); iSTAT Arterial Blood Gas pO2 64 mmHg (80-95); iSTAT Arterial Blood Gas pO2 C 65; iSTAT Carbon Dioxide 32 mmol/L (24-31); iSTAT Hematocrit 33 % (37-47); iSTAT Hemoglobin 11.2 g/dl (12.0-16.0); iSTAT Potassium 4.4 mmol/L (3.3-5.0); iSTAT Site Art Line; iSTAT Sodium 141 mmol/L (135-144)
[2021-08-27 06:39] LABS: Basophils # (auto) 0.01 K/uL (0-0.2); Basophils % (auto) 0.1 %; Hematocrit (blood only) 32.7 % (37-47); Hemoglobin 9.8 g/dL (12.0-16.0); Immature Granulocytes # (auto) 0.13 K/uL (0.00-0.02); Immature Granulocytes % (auto) 1.2 %; Lymphocytes # (auto) 1.34 K/uL (1.2-3.4); Lymphocytes % (auto) 12.4 %; Mean Corpuscular Hemoglobin 23.9 pg (25-34); Mean Corpuscular Volume 79.8 fL (80-100); Monocytes # (auto) 0.53 K/uL (0.11-0.59); Monocytes % (auto) 4.9 %; Neutrophils # (auto) 8.79 K/uL (1.4-6.5); Neutrophils % (auto) 81.4 %; Platelet Count 281 K/uL (130-400); RDW Coefficient of Variation 15.9 % (11.5-14.5); RDW Standard Deviation 46.5 fL (36.4-46.3)
[2021-08-27 07:11] LABS: BUN Creatinine Ratio 49.4 (10-20); Calcium 7.8 mg/dl (8.5-10.1); Creatinine Clr Calc Pharmacy 135.1 ml/min; Est GFR (African American) 129.9 ml/min; Est GFR (Non-African American) 112.1 ml/min; Magnesium 2.9 mg/dl (1.8-2.4); Potassium 4.6 mmol/L (3.5-5.1)
[2021-08-27 07:12] LABS: Phosphorus 3.7 mg/dl (2.5-4.9)
[2021-08-27] MEDS ORDERED: FUROSEMIDE 40 MG in SYRINGE 0 ML IV ONE (07:46)
[2021-08-27] MEDS ORDERED: FUROSEMIDE 40 MG/4 ML VIAL IV STA (07:48)
--- NOTE | 2021-08-27 07:50 | XRay Report ---
XR chest 1V portable HISTORY: Resp failure COMPARISON: Chest 08/18/2021. FINDINGS: Lines and tubes remain unchanged in position. The heart is normal in size. Patchy bilateral airspace opacities have slightly improved. Right basilar chest tube is unchanged in position. A smal l right pneumothorax has slightly decreased in size. IMPRESSION: 1. Satisfactory support line placement. 2. Slight decrease in size in the small right pneumothorax. 3. Patchy bilateral airspace opacities have slightly improved. ACT 112: Negative or not required by law. Electronically signed by: Maxwell Thapa M.D. 08/27/2021 7:49 AM
[2021-08-27] MEDS: LANSOPRAZOLE 30 MG SOLTAB NG SCH (07:59)
[2021-08-27] MEDS: ASPIRIN 81 MG CHEW PO SCH (07:59)
[2021-08-27] MEDS: MULTI VIT W/MINERALS LIQUID 15 ML UDP NG SCH (08:00)
[2021-08-27] MEDS: VENLAFAXINE HCL 37.5 MG TAB PO SCH ×2 (08:00→21:55)
[2021-08-27] MEDS: ENOXAPARIN INJ 40 MG/0.4 ML SYR SQ SCH ×2 (08:00→21:55)
[2021-08-27] MEDS: dexAMETHasone 10 MG in SYRINGE 0 ML IV SCH (08:09)
--- NOTE | 2021-08-27 10:52 | Hospitalist Progress Note ---
Date of Service August 27, 2021 Assessment & Plan (1) Pneumonia due to 2019-nCoV: (2) Pneumothorax, right: (3) Acute respiratory failure with hypoxia: Plan: Secondary to COVID-19 pneumonia Intubated on 08/23. Complicated by spontaneous pneumothorax s/p right chest tube on 08/25 Currently sedated with propofol and fentanyl drip Vent and chest tube management per recreation specialist Currently on dexamethasone 10 mg daily Completed course of remdesivir (4) Asthma: Plan: Continue plan as above. (5) UTI (urinary tract infection): Plan: E. Coli. Continue with ceftriaxone. (6) Mitral valve prolapse: (7) Anxiety: Plan: Takes venlafaxine regularly, which she continues. (8) HTN (hypertension): Plan: Cozaar on hold due to hypotension. A-line is in place. (9) GERD (gastroesophageal reflux disease): Plan: Cont PPI daily per home regimen. (10) DVT prophylaxis: Plan: Lovenox, PPI She is on tube feeds via OGT at 40cc/h Full Code Dispo-cont ICU care Admission and Anticipated Discharge Date Admission Date: August 19, 2021 Subjective 45-year-old woman with history of allergic rhinitis, mitral regurgitation, GERD, asthma who presents with shortness of breath. Found to have COVID-19 pneumonia. Currently being managed for acute hypoxic respiratory failure secondary to COVID-19 pneumonia, ventilator dependent respiratory failure, spontaneous pneumo thorax status post chest tube placement. Patient seen and examined this morning. Currently on ventilatory support, chest tube in situ [right-sided], on fentanyl drip, propofol drip. Status post remdesivir. Currently on dexamethasone 10 mg Review of Systems Review of Systems: Unobtainable due to endotracheal tube Physical Exam Constitutional: Intubated Opens eyes to touch occasionally. Eyes: Normal conjunctiva ENMT: ET tube and OG tube in situ. Respiratory: On ventilatory support. Reduced air entry with basilar crackles. Cardiovascular: Regular rate and rhythm, S1 and S2 Gastrointestinal (Abdomen): normal bowel sounds, soft, nontender, no hepatosplenomegaly Musculoskeletal: No pedal edema Neurologic: Intubated and sedated Psychiatric: Unable to assess. Intubated Genitourinary: Ott in situ Results & Data Results & Data ([facility]) Vital Signs (Past 12 Hours) Vital Signs Temp Pulse Resp BP Pulse Ox 08/27/21 08:55 37.5 C 89 123/85 91 08/27/21 07:55 37.5 C 75 126/72 94 08/27/21 07:48 71 20 92 08/27/21 04:55 37.2 C 85 121/72 92 08/27/21 03:55 37.2 C 93 H 127/72 90 08/27/21 03:12 66 20 90 08/27/21 02:55 37.5 C 64 126/71 90 08/27/21 01:55 37.6 C H 66 122/71 92 08/27/21 00:55 37.6 C H 66 128/73 91 08/27/21 00:05 79 08/26/21 23:55 37.5 C 72 125/76 90 08/26/21 22:55 37.4 C 84 139/84 91 08/26/21 22:54 84 24 92 Laboratory Results Abnormal lab results 08/27/21 08/27/21 08/27/21 Range/Units 04:08 05:57 05:57 RBC 4.10 L (4.2-5.4) M/uL Hgb 9.8 L (12.0-16.0) g/dL POC Hgb 11.2 L (12.0-16.0) g/dl Hct 32.7 L (37-47) % POC Hct 33 L (37-47) % MCV 79.8 L (80-100) fL MCH 23.9 L (25-34) pg MCHC 30.0 L (32-36) g/dL RDW Std Deviation 46.5 H (36.4-46.3) fL RDW Coeff of Patrica 15.9 H (11.5-14.5) % MPV 11.0 H (7.4-10.4) fL Neut # (Auto) 8.79 H (1.4-6.5) K/uL Immature Gran # (Auto) 0.13 H (0.00-0.02) K/uL POC pH 7.47 H (7.35-7.45) POC pO2 64 L (80-95) mmHg POC HCO3 31 H (19-24) roseann/L POC Total CO2 32 H (24-31) mmol/L POC Base Excess 7.0 H (-9-1.8) roseann/L ABG pH (Temp Correct) 7.468 H (7.35-7.45) Anion Gap 2.0 L (3-11) BUN 29 H (7-18) mg/dl Creatinine 0.58 L (0.6-1.2) mg/dl BUN/Creatinine Ratio 49.4 H (10-20) Glucose 169 H (70-99) mg/dl Calcium 7.8 L (8.5-10.1) mg/dl Magnesium 2.9 H (1.8-2.4) mg/dl
--- NOTE | 2021-08-27 11:50 | Critical Care Progress Note ---
Date of Service August 27, 2021 Assessment & Plan (1) Pneumonia due to 2019-nCoV: (2) Acute respiratory failure with hypoxia: (3) Asthma: (4) Anxiety: (5) DVT prophylaxis: Plan: Reason Critically Ill: 45-year-old female with acute hypoxic respiratory failure PLAN: Neuro: Sedation: -Fentanyl and propofol Neuromuscular blockade -X24 hours discontinued on 08/23 Anxiety: Goal RASS -1 Continue venlafaxine Resp: VDRF --> acute hypoxic respiratory failure secondary to Covid pneumonia: Continue with dexamethasone for total of 10 days S/p remdesivir Maintain negative fluid balance Continue with lung protective ventilation High PEEP, low tidal volume to keep Plateau < 30 with permissive hypercapnea if need be. Monitor ABGs Spontaneous right-sided pneumothorax Status post chest tube placement 08/25/2021 Continuous air leak appreciated Asthma: No significant bronchospasm on exam Continue leave albuterol/ipratropium nebulizer treatments Fluids/Renal: Monitor BUNs/creatinine Avoid nephrotoxic medication Replace electrolytes as needed ID: Covid pneumonia Asymptomatic E. coli bacteriuria -S/p Rocephin 1 g daily for 5 days GI/Nutrition: Trickle tube feeds -Can increase tube feedings to goal Heme: Leukocytosis likely from steroid Continue to monitor Endocrine: ICU hyperglycemia protocol --Prophylaxis VTE: Lovenox GI: Lansoprazole Lines: Right subclavian placed 08/22, left arterial line placed 08/22, positive Ott, Right sided pigtail catheter 08/25/21 Diet: Tube feeds Plan: In/out: -755, urine output 2045 AB.47/42/64 on PEEP of 8, 60%, I went down on respiratory rate Chest x-ray from today shows in the right-sided pneumothorax. Small pneumo still persist Patient still has continuous leak. Hopefully it will resolve with time 40 mg of Lasix given today Today will be the last day of Rocephin for her UTI. Patient was called and updated regarding patient's condition. Patient's : Louie: [phone] I have personally spent 36 minutes of critical care time in the direct management of this patient. This is a life/limb threatening event. This includes time spent evaluating patient, direct bedside care, chart review, placing orders, interpretation of diagnostic studies, discussion with consultants, patient, and family members, as well as other required patient management activities. This time is exclusive of all separately billable procedures, and teaching time and separate from and in addition to any other critical care service time. Please note the above document was generated using voice recognition software. It may contain grammatical, syntax or spelling errors. Admission and Anticipated Discharge Date Admission Date: August 19, 2021 Subjective Patient seen and examined at bedside. No acute distress, On fentanyl 100 propofol 15 Patient does open her eyes and breathe over the vent. Has been having a low-grade fever Patient does open her eyes on calling her name but does not follow commands and does not track At the time of examination patient was on 50% FiO2, PEEP of 8 saturating 92-93%. I went down on FiO2 to 40% Review of Systems Review of Systems: All systems reviewed & are unremarkable except as noted in Subjective Physical Exam Physical Exam: Constitutional: No acute distress HEENT: PERRLA, positive ETT Respiratory system: Decreased air entry bilaterally, no wheeze, rhonchi, positive crackles bilateral lower lobes CVS: S1-S2 positive, no murmurs or gallops Abdomen: Soft, nontender, nondistended, positive bowel sounds x4 Extremities: +2 pulses bilaterally radialis/ dorsalis pedis, no cyanosis, no edema Neuro: Intubated and sedated, breathing over the vent Psych: Unable to assess G/U: Positive Ott Right-sided pigtail catheter in place Skin: no rashes, warm and dry Lymphatic: no cervical or axillary lymphadenopathy Results & Data Results & Data ([facility]) Vital Signs (Past 12 Hours) Vital Signs Temp Pulse Resp BP Pulse Ox 08/27/21 10:56 37.6 C H 78 123/77 08/27/21 09:56 37.6 C H 83 130/77 91 08/27/21 08:55 37.5 C 89 123/85 91 08/27/21 07:55 37.5 C 75 126/72 94 08/27/21 07:48 71 20 92 08/27/21 04:55 37.2 C 85 121/72 92 08/27/21 03:55 37.2 C 93 H 127/72 90 08/27/21 03:12 66 20 90 08/27/21 02:55 37.5 C 64 126/71 90 08/27/21 01:55 37.6 C H 66 122/71 92 08/27/21 00:55 37.6 C H 66 128/73 91 08/27/21 00:05 79 08/26/21 23:55 37.5 C 72 125/76 90 08/27/21 05:57 08/27/21 05:57 Coding Level of Care Code Critical Care 1st 30-74 mins Diagnoses Pneumonia due to 2019-nCoV U07.1; J12.82 Acute respiratory failure with hypoxia J96.01 Asthma J45.909 Anxiety F41.9 DVT prophylaxis Z29.9 Time Spent (min) 36
[2021-08-27] MEDS: cefTRIAXone SODIUM 2,000 MG in DEXTROSE 5% 50 ML IV SCH (15:05)
[2021-08-27] MEDS: PEPTAMEN INTENSE VHP 1.0 CAL 1,000 ML BAG GT SCH (15:05)
--- NOTE | 2021-08-27 19:11 | XRay Report ---
SINGLE VIEW CHEST CLINICAL HISTORY: Hypoxia. FINDINGS: An AP, portable, upright chest radiograph is compared to study performed earlier the same d ay 08/27/2021 and correlated with chest CT dated 08/19/2021. The examination is degraded by portable te chnique and patient rotation. An endotracheal tube, an enteric tube, and a right subclavian central v enous catheter are unchanged in position. A pigtail catheter is again seen at the right lung base. Th ere is a small to moderate residual right pneumothorax. This is unchanged to slightly increased in si ze from today's earlier examination The heart is top normal for projection. Multifocal patchy airspac e consolidation is again seen throughout both lungs. Trace pleural effusions are suspected. The bony thorax is grossly intact. IMPRESSION: 1. Stable lines and tubes. 2. A small to moderate right pneumothorax is unchanged to slightly increased in size from today's ear lier examination. 3. Multifocal airspace consolidation and trace pleural effusions. ACT 112: Negative or not required by law. Electronically signed by: Louie Lopez M.D. 08/27/2021 7:10 PM
[2021-08-28] MEDS: ARTIFICIAL TEARS OP OINT 3.5 GM TUBE OP SCH ×6 (01:17→20:13)
[2021-08-28] MEDS: TUBE FEEDING WATER FLUSH OG SCH ×6 (01:18→20:14)
[2021-08-28 05:54] LABS: iSTAT Art Bld Gas pCO2 Correct 44 mmHg (35-46); iSTAT Arterial Blood Gas HCO3 33 meg/L (19-24); iSTAT Arterial Blood Gas pCO2 44 mmHg (35-46); iSTAT Arterial Blood Gas pH 7.48 (7.35-7.45); iSTAT Arterial Blood Gas pO2 66 mmHg (80-95); iSTAT Arterial Blood Gas pO2 C 66; iSTAT Carbon Dioxide 34 mmol/L (24-31); iSTAT Hematocrit 35 % (37-47); iSTAT Hemoglobin 11.9 g/dl (12.0-16.0); iSTAT Potassium 4.7 mmol/L (3.3-5.0); iSTAT Site Art Line; iSTAT Sodium 140 mmol/L (135-144)
[2021-08-28] MEDS: propofoL 1,000 MG/100 ML VIAL IV SCH ×4 (06:22→23:17)
[2021-08-28 06:46] LABS: Hematocrit (blood only) 33.9 % (37-47); Hemoglobin 10.4 g/dL (12.0-16.0); Mean Corpuscular Hgb Conc 30.7 g/dL (32-36); Mean Corpuscular Volume 78.3 fL (80-100); Mean Platelet Volume 11.2 fL (7.4-10.4); Platelet Count 336 K/uL (130-400); RDW Coefficient of Variation 15.9 % (11.5-14.5); RDW Standard Deviation 46.1 fL (36.4-46.3); Red Blood Count 4.33 M/uL (4.2-5.4); White Blood Count 15.93 K/uL (4.8-10.8)
[2021-08-28 07:02] LABS: D Dimer 1420 ug/L FEU (0-500)
[2021-08-28 07:14] LABS: Albumin Level 1.7 gm/dl (3.4-5.0); BUN Creatinine Ratio 66.2 (10-20); Calcium 8.2 mg/dl (8.5-10.1); Creatinine Clr Calc Pharmacy 143.7 ml/min; Est GFR (Non-African American) 114.8 ml/min; Magnesium 2.6 mg/dl (1.8-2.4); Potassium 4.6 mmol/L (3.5-5.1)
[2021-08-28] MEDS: ENOXAPARIN INJ 40 MG/0.4 ML SYR SQ SCH ×2 (07:21→20:14)
[2021-08-28] MEDS: MULTI VIT W/MINERALS LIQUID 15 ML UDP NG SCH (07:22)
[2021-08-28] MEDS: ASPIRIN 81 MG CHEW PO SCH (07:23)
[2021-08-28] MEDS: VENLAFAXINE HCL 37.5 MG TAB PO SCH ×2 (07:23→20:13)
[2021-08-28] MEDS: LANSOPRAZOLE 30 MG SOLTAB NG SCH (07:23)
[2021-08-28] MEDS: dexAMETHasone 10 MG in SYRINGE 0 ML IV SCH (07:24)
[2021-08-28 07:39] LABS: Albumin Globulin Ratio 0.3 (0.9-2); Bilirubin,Total 0.3 mg/dl (0.2-1); C Reactive Protein 5.18 mg/dl (0-0.29); Globulin 4.9 gm/dl (2.5-4.0); Phosphorus 2.7 mg/dl (2.5-4.9); Total Protein 6.6 gm/dl (6.4-8.2)
--- NOTE | 2021-08-28 07:50 | XRay Report ---
XR chest 1V portable HISTORY: Respiratory failure. COMPARISON: Chest 08/27/2021. FINDINGS: No significantly changed in the small right pneumothorax. Lines and tubes remain unchanged in position with the endotracheal tube terminates 2.2 cm from the mu. The heart is stable in size . Patchy bilateral airspace opacities are stable to slightly improved. Right basilar pleural catheter is also unchanged in position. IMPRESSION: 1. Satisfactory support line placement. 2. Small right pneumothorax, unchanged. 3. Stable 2 slight improvement in the bilateral patchy airspace opacities. ACT 112: Negative or not required by law. Electronically signed by: Maxwell Thapa M.D. 08/28/2021 7:49 AM
--- NOTE | 2021-08-28 10:00 | Hospitalist Progress Note ---
Date of Service August 28, 2021 Assessment & Plan (1) Pneumonia due to 2019-nCoV: (2) Pneumothorax, right: (3) Acute respiratory failure with hypoxia: Plan: Secondary to COVID-19 pneumonia Intubated on 08/23. Complicated by spontaneous right pneumothorax s/p right chest tube on 08/25 Currently sedated with propofol and fentanyl drip Vent and chest tube management per critical care cns Currently on dexamethasone 10 mg daily Completed course of remdesivir WBC 16,000 CRP improving, 17.3 on 08/25/21 to 5.8 today (4) Asthma: Plan: Continue plan as above. (5) UTI (urinary tract infection): Plan: E. Coli. Completed treatment with ceftriaxone (6) Mitral valve prolapse: (7) Anxiety: Plan: Takes venlafaxine regularly, which she continues. (8) HTN (hypertension): Plan: On losartan at home. Monitor blood pressure A-line is in place. (9) GERD (gastroesophageal reflux disease): Plan: Cont PPI daily per home regimen. (10) DVT prophylaxis: Plan: Lovenox, PPI She is on tube feeds via OGT at 60cc/h Full Code Dispo-cont ICU care Admission and Anticipated Discharge Date Admission Date: August 19, 2021 Subjective 45-year-old woman with history of allergic rhinitis, mitral regurgitation, GERD, asthma who presents with shortness of breath. Found to have COVID-19 pneumonia. Currently being managed for acute hypoxic respiratory failure secondary to COVID-19 pneumonia, ventilator dependent respiratory failure, spontaneous pneumo thorax status post chest tube placement. Patient seen and examined this morning. Currently on ventilatory support, chest tube in situ [right-sided], on fentanyl drip, propofol drip. Status post remdesivir. Currently on dexamethasone 10 mg Review of Systems Review of Systems: Unobtainable due to endotracheal tube Physical Exam Constitutional: + mechanically ventilated ENMT: ET tube and OG tube in situ Respiratory: On ventilator, tidal vol of 400 and, FiO2 40, respiratory rate of 16, PEEP of 8 Diminished breath sounds Right chest wall tube air leak Cardiovascular: RRR, S1-S2 Chest (Breasts): Additional Comments: Right anterior chest wall central line Gastrointestinal (Abdomen): normal bowel sounds, soft, nontender, no hepatosplenomegaly Musculoskeletal: No pedal edema Neurologic: Intubated and sedated Genitourinary: Ott in situ Results & Data Results & Data ([facility]) Vital Signs (Past 12 Hours) Vital Signs Temp Pulse Resp Pulse Ox 08/28/21 09:00 37.3 C 93 H 93 08/28/21 08:00 37.4 C 82 92 08/28/21 07:25 81 21 92 08/28/21 07:00 37.4 C 84 92 08/28/21 06:00 37.4 C 82 93 08/28/21 05:00 37.4 C 89 91 08/28/21 04:00 37.5 C 87 91 08/28/21 03:00 37.5 C 88 92 08/28/21 02:00 37.5 C 87 91 08/28/21 01:26 93 H 18 92 08/28/21 01:04 92 H 08/28/21 01:00 37.6 C H 88 91 08/28/21 00:00 37.6 C H 86 90 08/27/21 23:00 37.6 C H 88 90 08/27/21 22:23 87 19 91 08/27/21 22:00 37.6 C H 92 H 91 Laboratory Results Abnormal lab results 08/28/21 08/28/21 08/28/21 Range/Units 05:37 05:56 05:56 WBC 15.93 H (4.8-10.8) K/uL Hgb 10.4 L (12.0-16.0) g/dL POC Hgb 11.9 L (12.0-16.0) g/dl Hct 33.9 L (37-47) % POC Hct 35 L (37-47) % MCV 78.3 L (80-100) fL MCH 24.0 L (25-34) pg MCHC 30.7 L (32-36) g/dL RDW Coeff of Patrica 15.9 H (11.5-14.5) % MPV 11.2 H (7.4-10.4) fL D-Dimer (0-500) ug/L FEU POC pH 7.48 H (7.35-7.45) POC pO2 66 L (80-95) mmHg POC HCO3 33 H (19-24) roseann/L POC Total CO2 34 H (24-31) mmol/L POC Base Excess 9.0 H (-9-1.8) roseann/L ABG pH (Temp Correct) 7.480 H (7.35-7.45) Anion Gap 2.0 L (3-11) BUN 35 H (7-18) mg/dl Creatinine 0.54 L (0.6-1.2) mg/dl BUN/Creatinine Ratio 66.2 H (10-20) Glucose 155 H (70-99) mg/dl POC Glucose (70-99) mg/dl Calcium 8.2 L (8.5-10.1) mg/dl Magnesium 2.6 H (1.8-2.4) mg/dl AST 11 L (15-37) U/L C-Reactive Protein 5.18 H (0-0.29) mg/dl Albumin 1.7 L (3.4-5.0) gm/dl Globulin 4.9 H (2.5-4.0) gm/dl Albumin/Globulin Ratio 0.3 L (0.9-2) 08/28/21 08/28/21 Range/Units 05:56 08:04 WBC (4.8-10.8) K/uL Hgb (12.0-16.0) g/dL POC Hgb (12.0-16.0) g/dl Hct (37-47) % POC Hct (37-47) % MCV (80-100) fL MCH (25-34) pg MCHC (32-36) g/dL RDW Coeff of Patrica (11.5-14.5) % MPV (7.4-10.4) fL D-Dimer 1420 H* (0-500) ug/L FEU POC pH (7.35-7.45) POC pO2 (80-95) mmHg POC HCO3 (19-24) roseann/L POC Total CO2 (24-31) mmol/L POC Base Excess (-9-1.8) roseann/L ABG pH (Temp Correct) (7.35-7.45) Anion Gap (3-11) BUN (7-18) mg/dl Creatinine (0.6-1.2) mg/dl BUN/Creatinine Ratio (10-20) Glucose (70-99) mg/dl POC Glucose 147 H (70-99) mg/dl Calcium (8.5-10.1) mg/dl Magnesium (1.8-2.4) mg/dl AST (15-37) U/L C-Reactive Protein (0-0.29) mg/dl Albumin (3.4-5.0) gm/dl Globulin (2.5-4.0) gm/dl Albumin/Globulin Ratio (0.9-2)
--- NOTE | 2021-08-28 11:03 | Critical Care Progress Note ---
Date of Service August 28, 2021 Assessment & Plan (1) Pneumonia due to 2019-nCoV: (2) Acute respiratory failure with hypoxia: (3) Asthma: (4) Anxiety: (5) DVT prophylaxis: Plan: Reason Critically Ill: 45-year-old female with acute hypoxic respiratory failure PLAN: Neuro: Sedation: -Fentanyl and propofol Neuromuscular blockade -X24 hours discontinued on 08/23 Anxiety: Goal RASS -1 Continue venlafaxine Resp: VDRF --> acute hypoxic respiratory failure secondary to Covid pneumonia: Continue with dexamethasone for total of 10 days S/p remdesivir Maintain negative fluid balance Continue with lung protective ventilation High PEEP, low tidal volume to keep Plateau < 30 with permissive hypercapnea if need be. Monitor ABGs Spontaneous right-sided pneumothorax Status post chest tube placement 08/25/2021 Continuous air leak appreciated Asthma: No significant bronchospasm on exam Continue leave albuterol/ipratropium nebulizer treatments Fluids/Renal: Monitor BUNs/creatinine Avoid nephrotoxic medication Replace electrolytes as needed ID: Covid pneumonia Asymptomatic E. coli bacteriuria -S/p Rocephin 1 g daily for 5 days, last dose 08/27/2021 GI/Nutrition: Trickle tube feeds -Can increase tube feedings to goal Heme: Leukocytosis likely from steroid Continue to monitor Endocrine: ICU hyperglycemia protocol --Prophylaxis VTE: Lovenox GI: Lansoprazole Lines: Right subclavian placed 08/22, left arterial line placed 08/22, positive Ott, Right sided pigtail catheter 08/25/21 Diet: Tube feeds Plan: In/out: -989, urine output 2625 AB.48/44/62 on PEEP of 8, 40% I went down the PEEP to 5 40 mg of Lasix given to the patient Continue with pigtail catheter with continuous suction We will try to do pressure support tomorrow and if the patient is following commands we will try to extubate Patient's : Louie: [phone] I have personally spent 34 minutes of critical care time in the direct management of this patient. This is a life/limb threatening event. This includes time spent evaluating patient, direct bedside care, chart review, placing orders, interpretation of diagnostic studies, discussion with consultants, patient, and family members, as well as other required patient management activities. This time is exclusive of all separately billable procedures, and teaching time and separate from and in addition to any other critical care service time. Please note the above document was generated using voice recognition software. It may contain grammatical, syntax or spelling errors. Admission and Anticipated Discharge Date Admission Date: August 19, 2021 Subjective Patient seen and examined at bedside. No acute distress Later last evening when the patient was getting clean she did have an episode of hypoxia and tachycardia Chest x-ray at that time showed slight retraction of the pigtail catheter but was still in place Pneumothorax was still persistent Patient was on propofol and fentanyl at the time of examination She is opening her eyes Patient was saturating 94% on 40% FiO2 PEEP of 6. I did change to pressure support and she was tolerating it well. Review of Systems Review of Systems: All systems reviewed & are unremarkable except as noted in Subjective Physical Exam Physical Exam: Constitutional: No acute distress HEENT: PERRLA, positive ETT Respiratory system: Decreased air entry bilaterally, no wheeze, rhonchi, positive crackles bilateral lower lobes CVS: S1-S2 positive, no murmurs or gallops Abdomen: Soft, nontender, nondistended, positive bowel sounds x4 Extremities: +2 pulses bilaterally radialis/ dorsalis pedis, no cyanosis, no edema Neuro: Intubated and sedated, breathing over the vent Psych: Unable to assess G/U: Positive Ott Right-sided pigtail catheter in place Skin: no rashes, warm and dry Lymphatic: no cervical or axillary lymphadenopathy Results & Data Results & Data ([facility]) Vital Signs (Past 12 Hours) Vital Signs Temp Pulse Resp Pulse Ox 08/28/21 09:00 37.3 C 93 H 93 08/28/21 08:00 37.4 C 82 92 08/28/21 07:25 81 21 92 08/28/21 07:00 37.4 C 84 92 08/28/21 06:00 37.4 C 82 93 08/28/21 05:00 37.4 C 89 91 08/28/21 04:00 37.5 C 87 91 08/28/21 03:00 37.5 C 88 92 08/28/21 02:00 37.5 C 87 91 08/28/21 01:26 93 H 18 92 08/28/21 01:04 92 H 08/28/21 01:00 37.6 C H 88 91 08/28/21 00:00 37.6 C H 86 90 08/27/21 23:00 37.6 C H 88 90 08/28/21 05:56 08/28/21 05:56 Coding Level of Care Code Critical Care 1st 30-74 mins Diagnoses Pneumonia due to 2019-nCoV U07.1; J12.82 Acute respiratory failure with hypoxia J96.01 Asthma J45.909 Anxiety F41.9 DVT prophylaxis Z29.9 Time Spent (min) 34
[2021-08-28] MEDS: PEPTAMEN INTENSE VHP 1.0 CAL 1,000 ML BAG GT SCH (12:03)
[2021-08-28] MEDS: fentaNYL DRIP 1,250 MCG/250 ML BAG IV SCH ×5 (14:25→17:52)
[2021-08-29] MEDS: fentaNYL DRIP 1,250 MCG/250 ML BAG IV SCH ×2 (01:47→08:54)
[2021-08-29 04:27] LABS: iSTAT Art Bld Gas pCO2 Correct 41 mmHg (35-46); iSTAT Art Bld Gas pH Corrected 7.468 (7.35-7.45); iSTAT Arterial Blood Gas HCO3 30 meg/L (19-24); iSTAT Arterial Blood Gas pCO2 41 mmHg (35-46); iSTAT Arterial Blood Gas pH 7.47 (7.35-7.45); iSTAT Arterial Blood Gas pO2 66 mmHg (80-95); iSTAT Arterial Blood Gas pO2 C 66; iSTAT Carbon Dioxide 31 mmol/L (24-31); iSTAT Hematocrit 31 % (37-47); iSTAT Hemoglobin 10.5 g/dl (12.0-16.0); iSTAT Potassium 4.7 mmol/L (3.3-5.0); iSTAT Site Art Line; iSTAT Sodium 141 mmol/L (135-144)
[2021-08-29] MEDS: propofoL 1,000 MG/100 ML VIAL IV SCH ×4 (04:55→08:54)
[2021-08-29] MEDS: ARTIFICIAL TEARS OP OINT 3.5 GM TUBE OP SCH ×3 (05:05→08:16)
[2021-08-29] MEDS: TUBE FEEDING WATER FLUSH OG SCH ×2 (05:06→05:07)
[2021-08-29 06:21] LABS: Hemoglobin 10.1 g/dL (12.0-16.0); Mean Corpuscular Hemoglobin 23.5 pg (25-34); Mean Corpuscular Hgb Conc 29.7 g/dL (32-36); Mean Corpuscular Volume 79.1 fL (80-100); Mean Platelet Volume 11.2 fL (7.4-10.4); Platelet Count 298 K/uL (130-400); RDW Coefficient of Variation 15.9 % (11.5-14.5); RDW Standard Deviation 46.2 fL (36.4-46.3); White Blood Count 17.06 K/uL (4.8-10.8)
[2021-08-29 07:00] LABS: BUN Creatinine Ratio 63.7 (10-20); Calcium 8.2 mg/dl (8.5-10.1); Creatinine Clr Calc Pharmacy 151.6 ml/min; Est GFR (African American) 135.5 ml/min; Est GFR (Non-African American) 116.9 ml/min; Magnesium 2.5 mg/dl (1.8-2.4); Potassium 4.7 mmol/L (3.5-5.1)
[2021-08-29 07:04] LABS: Phosphorus 3.3 mg/dl (2.5-4.9)
[2021-08-29] MEDS: LANSOPRAZOLE 30 MG SOLTAB NG SCH (08:15)
[2021-08-29] MEDS: ASPIRIN 81 MG CHEW PO SCH (08:16)
[2021-08-29] MEDS: PEPTAMEN INTENSE VHP 1.0 CAL 1,000 ML BAG GT SCH (08:16)
[2021-08-29] MEDS: ENOXAPARIN INJ 40 MG/0.4 ML SYR SQ SCH ×2 (08:16→20:06)
[2021-08-29] MEDS: VENLAFAXINE HCL 37.5 MG TAB PO SCH ×2 (08:16→20:05)
[2021-08-29] MEDS: MULTI VIT W/MINERALS LIQUID 15 ML UDP NG SCH (08:16)
[2021-08-29] MEDS ORDERED: FUROSEMIDE 40 MG in SYRINGE 0 ML IV ONE (09:01)
--- NOTE | 2021-08-29 09:01 | XRay Report ---
SINGLE VIEW CHEST CLINICAL HISTORY: Pneumothorax. FINDINGS: An AP, portable, upright chest radiograph is compared to study dated 08/28/2021 and correlat ed with chest CT dated 08/19/2021. The examination is degraded by portable technique and patient rotat ion. An endotracheal tube, an enteric tube, and a right subclavian central venous catheter are unchan ged in position. A pigtail catheter is again seen at the right lung base. There is a small to moderat e residual right pneumothorax. This is unchanged from yesterday The heart is top normal for projectio n. Multifocal patchy airspace consolidation is again seen throughout both lungs. Trace pleural effusi ons are suspected. The bony thorax is grossly intact. IMPRESSION: 1. Stable lines and tubes. 2. A small to moderate right pneumothorax is unchanged from yesterday. 3. Multifocal airspace consolidation and trace pleural effusions. ACT 112: Negative or not required by law. Electronically signed by: Louie Lopez M.D. 08/29/2021 8:59 AM
[2021-08-29] MEDS ORDERED: FUROSEMIDE 40 MG/4 ML VIAL IV ONE (09:15)
--- NOTE | 2021-08-29 10:31 | Hospitalist Progress Note ---
Date of Service August 29, 2021 Assessment & Plan (1) Pneumonia due to 2019-nCoV: (2) Pneumothorax, right: (3) Acute respiratory failure with hypoxia: Plan: Secondary to COVID-19 pneumonia Intubated on 08/23. Complicated by spontaneous right pneumothorax s/p right chest tube on 08/25 Extubated this morning to BIPAP Had dexamethasone 10 mg and completed course of remdesivir WBC 17K today CRP improving, 17.3 on 08/25/21 to 5.8 on 08/28/21 (4) Asthma: Plan: Continue plan as above. (5) UTI (urinary tract infection): Plan: E. Coli. Completed treatment with ceftriaxone (6) Mitral valve prolapse: (7) Anxiety: Plan: Takes venlafaxine regularly, which she continues. (8) HTN (hypertension): Plan: On losartan at home. Monitor blood pressure A-line is in place. (9) GERD (gastroesophageal reflux disease): Plan: Cont PPI daily per home regimen. (10) DVT prophylaxis: Plan: Lovenox, PPI Full Code Dispo-cont ICU care Admission and Anticipated Discharge Date Admission Date: August 19, 2021 Subjective 45-year-old woman with history of allergic rhinitis, mitral regurgitation, GERD, asthma who presents with shortness of breath. Found to have COVID-19 pneumonia. Currently being managed for acute hypoxic respiratory failure secondary to COVID-19 pneumonia, ventilator dependent respiratory failure, spontaneous pneumo thorax status post chest tube placement. Patient was intubated. Patient seen and examined this morning. She is currently extubated to noninvasive ventilation this morning Status post remdesivir. Currently on dexamethasone 10 mg Patient is awake, follows simple commands and able to say her name but oother review of systems limited due to BiPAP and weakness Physical Exam Constitutional: Ill looking On BIPAP Eyes: PERRL, conjunctivae normal, anicteric sclerae Respiratory: On NIV, not in respiratory distress Diminished breath sounds Right chest tube in situ with leak, connected to suction Cardiovascular: RRR. S1-S2 Gastrointestinal (Abdomen): normal bowel sounds, soft, nontender, no hepatosplenomegaly Musculoskeletal: No pedal edema Neurologic: Awake, alert, follows simple commands Genitourinary: Ott in situ Results & Data Results & Data ([facility]) Vital Signs (Past 12 Hours) Vital Signs Temp Pulse Pulse Resp BP Pulse Ox 08/29/21 09:56 37.4 C 91 H 128/89 91 08/29/21 09:23 79 24 92 08/29/21 09:21 78 92 08/29/21 09:19 37.4 C 80 22 92 08/29/21 08:56 37.3 C 71 127/76 93 08/29/21 08:51 88 18 94 08/29/21 07:56 37.4 C 80 125/73 90 08/29/21 06:56 37.4 C 87 126/77 90 08/29/21 05:56 37.4 C 71 129/70 90 08/29/21 04:56 37.3 C 74 135/74 89 L 08/29/21 03:56 37.2 C 67 106/74 92 08/29/21 03:01 67 16 91 08/29/21 02:56 37.2 C 69 114/75 91 08/29/21 01:56 37.3 C 66 127/75 92 08/29/21 00:56 37.4 C 64 125/79 92 08/28/21 23:56 37.4 C 72 132/84 92 08/28/21 23:10 81 20 91 08/28/21 22:56 37.4 C 75 128/80 91 Laboratory Results Abnormal lab results 08/28/21 08/28/21 08/29/21 Range/Units 11:59 16:16 04:13 WBC (4.8-10.8) K/uL Hgb (12.0-16.0) g/dL POC Hgb 10.5 L (12.0-16.0) g/dl Hct (37-47) % POC Hct 31 L (37-47) % MCV (80-100) fL MCH (25-34) pg MCHC (32-36) g/dL RDW Coeff of Patrica (11.5-14.5) % MPV (7.4-10.4) fL POC pH 7.47 H (7.35-7.45) POC pO2 66 L (80-95) mmHg POC HCO3 30 H (19-24) roseann/L POC Base Excess 6.0 H (-9-1.8) roseann/L ABG pH (Temp Correct) 7.468 H (7.35-7.45) Chloride (98-107) mmol/L BUN (7-18) mg/dl Creatinine (0.6-1.2) mg/dl BUN/Creatinine Ratio (10-20) Glucose (70-99) mg/dl POC Glucose 158 H 154 H (70-99) mg/dl Calcium (8.5-10.1) mg/dl Magnesium (1.8-2.4) mg/dl Triglycerides (0-150) mg/dl 08/29/21 08/29/21 Range/Units 05:36 05:36 WBC 17.06 H (4.8-10.8) K/uL Hgb 10.1 L (12.0-16.0) g/dL POC Hgb (12.0-16.0) g/dl Hct 34.0 L (37-47) % POC Hct (37-47) % MCV 79.1 L (80-100) fL MCH 23.5 L (25-34) pg MCHC 29.7 L (32-36) g/dL RDW Coeff of Patrica 15.9 H (11.5-14.5) % MPV 11.2 H (7.4-10.4) fL POC pH (7.35-7.45) POC pO2 (80-95) mmHg POC HCO3 (19-24) roseann/L POC Base Excess (-9-1.8) roseann/L ABG pH (Temp Correct) (7.35-7.45) Chloride 108 H (98-107) mmol/L BUN 32 H (7-18) mg/dl Creatinine 0.51 L (0.6-1.2) mg/dl BUN/Creatinine Ratio 63.7 H (10-20) Glucose 139 H (70-99) mg/dl POC Glucose (70-99) mg/dl Calcium 8.2 L (8.5-10.1) mg/dl Magnesium 2.5 H (1.8-2.4) mg/dl Triglycerides 156 H (0-150) mg/dl
[2021-08-29] MEDS ORDERED: STAT IV Infusion **Titration per Protocol STA (12:11)
[2021-08-29] MEDS: DEXMEDETOMIDINE HCL 200 MCG in SODIUM CHLORIDE 0.9% 48 ML IV SCH ×3 (13:47→20:06)
--- NOTE | 2021-08-29 14:24 | Critical Care Progress Note ---
Date of Service August 29, 2021 Assessment & Plan (1) Pneumonia due to 2019-nCoV: (2) Acute respiratory failure with hypoxia: (3) Asthma: (4) Anxiety: (5) DVT prophylaxis: Plan: Reason Critically Ill: 45-year-old female with acute hypoxic respiratory failure PLAN: Neuro: Sedation: S/p neuromuscular blockade -X24 hours discontinued on 08/23 Precedex for restlessness Anxiety: Continue venlafaxine Resp: S/p VDRF --> acute hypoxic respiratory failure secondary to Covid pneumonia:--> Extubated 08/29/2021 Continue with dexamethasone for total of 10 days S/p remdesivir Maintain negative fluid balance Spontaneous right-sided pneumothorax Status post chest tube placement 08/25/2021 Continuous air leak appreciated Asthma: No significant bronchospasm on exam Continue leave albuterol/ipratropium nebulizer treatments Fluids/Renal: Monitor BUNs/creatinine Avoid nephrotoxic medication Replace electrolytes as needed ID: Covid pneumonia Asymptomatic E. coli bacteriuria -S/p Rocephin 1 g daily for 5 days, last dose 08/27/2021 GI/Nutrition: Trickle tube feeds -Can increase tube feedings to goal Heme: Leukocytosis likely from steroid Continue to monitor Endocrine: ICU hyperglycemia protocol --Prophylaxis VTE: Lovenox GI: Lansoprazole Lines: Right subclavian placed 08/22, left arterial line placed 08/22, positive Ott, Right sided pigtail catheter 08/25/21 Diet: Tube feeds Plan: In/out: -656, urine output 1700 mL Lasix 40 mg given to the patient today Chest tube still shows continuous air leak. Continue to monitor Patient has been extubated. She is doing well on BiPAP She did have bouts of restlessness but he was pulling the mask off. I will start the patient on Precedex low-dose. She does have history of anxiety delirium will also be playing a role We will gradually try to take the Precedex off any when taken off BiPAP if possible Would like the patient to be on BiPAP nightly for the time being Patient's : Louie: [phone] I have personally spent 36 minutes of critical care time in the direct management of this patient. This is a life/limb threatening event. This includes time spent evaluating patient, direct bedside care, chart review, placing orders, interpretation of diagnostic studies, discussion with consultants, patient, and family members, as well as other required patient management activities. This time is exclusive of all separately billable procedures, and teaching time and separate from and in addition to any other critical care service time. Please note the above document was generated using voice recognition software. It may contain grammatical, syntax or spelling errors. Admission and Anticipated Discharge Date Admission Date: August 19, 2021 Subjective Patient seen and examined at bedside. No acute distress, no adverse events overnight. Patient was extubated. She was on BiPAP 12/5 saturating 92% on FiO2 40% She was not in any distress. She was following commands. Denies any chest pain, no headache, no nausea, no vomiting Review of Systems Review of Systems: All systems reviewed & are unremarkable except as noted in Subjective Physical Exam Physical Exam: Constitutional: No acute distress HEENT: PERRLA Respiratory system: Decreased air entry bilaterally, no wheeze, rhonchi, positive crackles bilateral lower lobes CVS: S1-S2 positive, no murmurs or gallops Abdomen: Soft, nontender, nondistended, positive bowel sounds x4 Extremities: +2 pulses bilaterally radialis/ dorsalis pedis, no cyanosis, no edema Neuro: Awake and alert, following simple commands Psych: Flat mood and affect G/U: Positive Ott Right-sided pigtail catheter in place Skin: no rashes, warm and dry Lymphatic: no cervical or axillary lymphadenopathy Results & Data Results & Data ([facility]) Vital Signs (Past 12 Hours) Vital Signs Temp Pulse Pulse Resp BP Pulse Ox 08/29/21 13:00 37.8 C H 98 H 92 08/29/21 12:00 37.7 C H 88 92 08/29/21 11:59 37.7 C H 87 91 08/29/21 11:22 81 22 92 08/29/21 10:56 37.6 C H 81 125/89 92 08/29/21 09:56 37.4 C 91 H 128/89 91 08/29/21 09:23 79 24 92 08/29/21 09:21 78 92 08/29/21 09:19 37.4 C 80 22 92 08/29/21 08:56 37.3 C 71 127/76 93 08/29/21 08:51 88 18 94 08/29/21 07:56 37.4 C 80 125/73 90 08/29/21 06:56 37.4 C 87 126/77 90 08/29/21 05:56 37.4 C 71 129/70 90 08/29/21 04:56 37.3 C 74 135/74 89 L 08/29/21 03:56 37.2 C 67 106/74 92 08/29/21 03:01 67 16 91 08/29/21 02:56 37.2 C 69 114/75 91 08/29/21 05:36 08/29/21 05:36 Coding Level of Care Code Critical Care 1st 30-74 mins Diagnoses Pneumonia due to 2019-nCoV U07.1; J12.82 Acute respiratory failure with hypoxia J96.01 Asthma J45.909 Anxiety F41.9 DVT prophylaxis Z29.9 Time Spent (min) 36
[2021-08-29] MEDS: ACETAMINOPHEN 1,000 MG/100 ML VIAL IV PRN ×2 (15:05→21:25)
[2021-08-30] MEDS: DEXMEDETOMIDINE HCL 200 MCG in SODIUM CHLORIDE 0.9% 48 ML IV SCH ×13 (00:07→23:52)
[2021-08-30] MEDS ORDERED: PIPERACILL/TAZOBAC CONSULT ACTIVE PRN (01:03)
[2021-08-30] MEDS ORDERED: VANCOMYCIN CONSULT ACTIVE PRN (01:03)
[2021-08-30] MEDS ORDERED: PIPERACILLIN/TAZOBACTAM 4.5 GM in DEXTROSE 5% 100 ML IV ONE (01:30)
[2021-08-30] MEDS ORDERED: VANCOMYCIN HCL 1,750 MG in SODIUM CHLORIDE 0.9% 500 ML IV ONE (01:30)
--- NOTE | 2021-08-30 06:05 | Pharmacy Report ---
Pharmacy Vanc AUC Short Note - Date of Service August 30, 2021 - Assessment & Plan Assessment 45 year old F originally hospitalized on 08/19/21 with COVID-19 pneumonia now ordered empiric vancomycin and Zosyn for new onset leukocytosis (17 K) and fever (Tmax of 39.5 C yesterday). Blood cultures x 2 obtained prior to initiation of antibiotics, pending. MRSA nasal swab also ordered. Day # 1 of antimicrobial therapy. Plan Vancomycin * AUC/MARIA is the preferred PK/PD target for vancomycin * AUC guided dosing is effective and associated with decreased risk of nephrotoxicity compared to traditional trough targets * Loading dose of 1750 mg IV x 1 (~21 mg/kg) * Ordered dose of 1 g IV q8h is predicted to achieve target AUC/MARIA of 400-600 mg/L.hr and may be associated with a 14 % risk of nephrotoxicity * Will order vancomycin trough once at steady-state and if continued beyond 48 hours Zosyn * Will dose at 4.5 g IV q8h given illness severity in patient at risk for MDROs Pharmacy will continue to follow and will adjust dose/frequency as necessary. Thank you.
[2021-08-30 06:29] LABS: Appearance Urine Cloudy (Clear); Blood Urine 3+ (Negative); Color Urine Orange; Epithelial Cell Urine Auto >30 /lpf (0-5); Glucose Urine UA Negative (Negative); Ketones Urine Negative (Negative); Leukocyte Esterase Urine Trace (Negative); Nitrite Urine Negative (Negative); Urobilinogen Urine Negative (Negative)
[2021-08-30 06:37] LABS: Bilirubin Urine 1+ (Negative); Protein Urine 1+ (Negative)
[2021-08-30 06:51] LABS: Hematocrit (blood only) 32.5 % (37-47); Hemoglobin 10.2 g/dL (12.0-16.0); Mean Corpuscular Hemoglobin 24.4 pg (25-34); Mean Corpuscular Hgb Conc 31.4 g/dL (32-36); Mean Corpuscular Volume 77.8 fL (80-100); Mean Platelet Volume 11.6 fL (7.4-10.4); Platelet Count 255 K/uL (130-400); RDW Coefficient of Variation 15.9 % (11.5-14.5); RDW Standard Deviation 44.8 fL (36.4-46.3); Red Blood Count 4.18 M/uL (4.2-5.4); White Blood Count 18.14 K/uL (4.8-10.8)
[2021-08-30 06:51] LABS: Bacteria Urine Automated 1+ (Negative); RBC Urine Automated >30 /hpf (0-4)
[2021-08-30 07:23] LABS: BUN Creatinine Ratio 45.5 (10-20); Calcium 7.9 mg/dl (8.5-10.1); Est GFR (African American) 125.8 ml/min; Est GFR (Non-African American) 108.5 ml/min; Magnesium 2.3 mg/dl (1.8-2.4); Potassium 3.7 mmol/L (3.5-5.1)
[2021-08-30 07:27] LABS: C Reactive Protein 24.3 mg/dl (0-0.29); Phosphorus 3.9 mg/dl (2.5-4.9)
[2021-08-30] MEDS ORDERED: STAT IV Infusion **Titration per Protocol STA (07:33)
[2021-08-30] MEDS ORDERED: NOREPINEPHRINE/D5W 8 MG/508 ML IV ONE (07:35)
--- NOTE | 2021-08-30 07:36 | Critical Care Progress Note ---
Date of Service August 30, 2021 Assessment & Plan (1) Pneumonia due to 2019-nCoV: (2) Acute respiratory failure with hypoxia: (3) Asthma: (4) Anxiety: (5) DVT prophylaxis: Plan: Reason Critically Ill: 45-year-old female with acute hypoxic respiratory failure PLAN: Neuro: Sedation: S/p neuromuscular blockade -X24 hours discontinued on 08/23 Precedex for restlessness Anxiety: Continue venlafaxine Resp: S/p VDRF --> acute hypoxic respiratory failure secondary to Covid pneumonia:--> Extubated 08/29/2021 Continue with dexamethasone for total of 10 days S/p remdesivir Maintain negative fluid balance Spontaneous right-sided pneumothorax Status post chest tube placement 08/25/2021 Continuous air leak appreciated Asthma: No significant bronchospasm on exam Continue leave albuterol/ipratropium nebulizer treatments Fluids/Renal: Monitor BUNs/creatinine Avoid nephrotoxic medication Replace electrolytes as needed ID: Covid pneumonia Asymptomatic E. coli bacteriuria -S/p Rocephin 1 g daily for 5 days, last dose 08/27/2021 New onset fever 08/29/2021 Empiric antibiotic started Follow-up culture GI/Nutrition: Trickle tube feeds -Can increase tube feedings to goal Heme: Leukocytosis likely from steroid Continue to monitor Endocrine: ICU hyperglycemia protocol --Prophylaxis VTE: Lovenox GI: Lansoprazole Lines: Right subclavian placed 08/22, left arterial line placed 08/22, positive Ott, Right sided pigtail catheter 08/25/21 Diet: NPO Plan: In/out: -2.2 L, urine output 3500 Patient has been spiking fever. Vancomycin and Zosyn have been started empi rically Patient again had tension pneumothorax on the right side, the chest tube was irrigated with saline and he started to work Repeat chest x-ray in 15 minutes showed resolvent of the pneumothorax Chest tube still shows continuous air leak. Continue to monitor Patient is awake alert and following commands She does get restless on the CPAP I will try to get off of CPAP and try high flow/nasal cannula Continue with Precedex Given that the patient is n.p.o. we will start the patient on D5 half NS at 70 mL an hour Patient's : Louie: [phone] was called and message was left on his voicemail I have personally spent 38 minutes of critical care time in the direct management of this patient. This is a life/limb threatening event. This includes time spent evaluating patient, direct bedside care, chart review, placing orders, interpretation of diagnostic studies, discussion with consultants, patient, and family members, as well as other required patient management activities. This time is exclusive of all separately billable procedures, and teaching time and separate from and in addition to any other critical care service time. Please note the above document was generated using voice recognition software. It may contain grammatical, syntax or spelling errors. Admission and Anticipated Discharge Date Admission Date: August 19, 2021 Subjective Patient seen and examined at bedside. No acute distress. Patient was on BiPAP at the time of examination saturating 93% on 60%. I went down to 50%. I did try to go down to CPAP of 2 and see how she is doing. She was still getti ng good tidal volumes of 500 even on that. Patient respiratory was in the 24-26 range. She was following commands. Denied any headache, no belly pain, no chest pain. Patient is on cooling blankets for the fever that she has been having. Review of Systems Review of Systems: All systems reviewed & are unremarkable except as noted in Subjective Physical Exam Physical Exam: Constitutional: No acute distress HEENT: PERRLA Respiratory system: Decreased air entry bilaterally, no wheeze, rhonchi, positive crackles bilateral lower lobes CVS: S1-S2 positive, no murmurs or gallops Abdomen: Soft, nontender, nondistended, positive bowel sounds x4 Extremities: +2 pulses bilaterally radialis/ dorsalis pedis, no cyanosis, no edema Neuro: Awake and alert, following simple commands Psych: Flat mood and affect G/U: Positive Ott Right-sided pigtail catheter in place Skin: no rashes, warm and dry Lymphatic: no cervical or axillary lymphadenopathy Results & Data Results & Data ([facility]) Vital Signs (Past 12 Hours) Vital Signs Temp Pulse Pulse Resp BP Pulse Ox 08/30/21 07:11 66 20 94 08/30/21 07:00 39.3 C H 84 93 08/30/21 06:00 39.8 C H 76 94 08/30/21 05:00 39.8 C H 79 95 08/30/21 04:00 39.6 C H 80 94 08/30/21 03:43 80 26 H 94 08/30/21 03:00 39.3 C H 79 93 08/30/21 02:00 39.0 C H 76 95 08/30/21 01:59 39.0 C H 79 95 08/30/21 00:57 38.7 C H 74 119/60 93 08/29/21 23:57 38.5 C H 78 112/69 83 L 08/29/21 23:45 76 08/29/21 23:30 78 24 90 08/29/21 22:57 38.8 C H 92 H 104/57 L 92 08/29/21 21:57 39.5 C H 89 125/63 90 08/29/21 20:57 39.2 C H 80 122/66 93 08/29/21 20:15 93 08/29/21 19:49 80 24 94 08/30/21 05:42 08/30/21 05:42 Coding Level of Care Code Critical Care 1st 30-74 mins Diagnoses Pneumonia due to 2019-nCoV U07.1; J12.82 Acute respiratory failure with hypoxia J96.01 Asthma J45.909 Anxiety F41.9 DVT prophylaxis Z29.9 Time Spent (min) 38
[2021-08-30] MEDS ORDERED: NOREPINEPHRINE/D5W 8 MG/508 ML BAG IV SCH (07:45)
[2021-08-30] MEDS: D5W AND 1/2NSS 1,000 ML IV SCH ×2 (07:51→22:22)
[2021-08-30] MEDS: PIPERACILLIN/TAZOBACTAM 4.5 GM in DEXTROSE 5% 100 ML IV SCH ×3 (07:58→22:22)
[2021-08-30 08:02] LABS: D Dimer 1440 ug/L FEU (0-500)
[2021-08-30] MEDS: VANCOMYCIN HCL 1,000 MG in SODIUM CHLORIDE 0.9% 250 ML IV SCH ×2 (08:07→17:20)
--- NOTE | 2021-08-30 09:02 | XRay Report ---
XR chest 1V portable INDICATION: MN ^f/u . TECHNIQUE: Single frontal radiograph of the chest was obtained. Comparison: Comparison is made to chest one view 08/29/2021 FINDINGS: Right pigtail catheter is seen within the thoracic cavity. Right subclavian line terminates in the mi d SVC. Interval removal of enteric and endotracheal tubes. Interval significant enlargement of the ri ght pneumothorax. The cardiac mediastinal silhouette is shifted leftward. The right lung is partially collapsed, the left lung is trace airspace opacities. IMPRESSION: Interval significant enlargement of right pneumothorax with leftward midline shift, concerning for te nsion pneumothorax. ACT 112: Positive. There are findings on this exam that require communication between the performing entity and the patient following Patient Test Result Information Act ([place] Act 112) guidelines. Electronically signed by: Ryan Ortiz M.D. 08/30/2021 9:01 AM
[2021-08-30] MEDS: MULTI VIT W/MINERALS LIQUID 15 ML UDP NG SCH (09:36)
[2021-08-30] MEDS: VENLAFAXINE HCL 37.5 MG TAB PO SCH ×2 (09:36→20:24)
[2021-08-30] MEDS: ENOXAPARIN INJ 40 MG/0.4 ML SYR SQ SCH ×2 (09:36→21:26)
[2021-08-30] MEDS: ASPIRIN 81 MG CHEW PO SCH (09:36)
--- NOTE | 2021-08-30 10:18 | XRay Report ---
XR chest 1V portable INDICATION: MN ^Chest tube function. TECHNIQUE: Single frontal radiograph of the chest was obtained. Comparison: Comparison is made to chest one view 08/30/2021 at 0832 hours FINDINGS: Stable appearance of right chest tube and right venous catheter. The cardiomediastinal silhouette is normal. Bilateral lower lung predominant airspace opacities are seen. Interval significant improvemen t in right pneumothorax, previously noted midline shift has essentially resolved. The residual pneumo thorax is approximately 16 mm in thickness. IMPRESSION: Significant improvement in previously noted right pneumothorax. ACT 112: Negative or not required by law. Electronically signed by: Ryan Ortiz M.D. 08/30/2021 10:17 AM
--- NOTE | 2021-08-30 11:34 | Hospitalist Progress Note ---
Date of Service August 30, 2021 Assessment & Plan (1) Pneumonia due to 2019-nCoV: (2) Pneumothorax, right: (3) Acute respiratory failure with hypoxia: Plan: Secondary to COVID-19 pneumonia Intubated on 08/23. Complicated by spontaneous right pneumothorax s/p right chest tube on 08/25 Extubated to BIPAP on 08/29/21 Completed remdesivir and dexamethasone Right tension pneumothorax today. Likely due to some blockage in chest tube. Addressed by export specialist. Repeat CXR significant improvement CRP initially improved, 17.3 on 08/25/21 to 5.8 on 08/28/21 but now increased to 24 Increasing leukocytosis Continue Vanco and Zosyn in view of persistent fever. Follow-up cultures in lab Continue management per export specialist Dr. Ridley Continue to wean oxygen supplementation as needed (4) Asthma: Plan: Continue plan as above. (5) UTI (urinary tract infection): Plan: E. Coli. Completed treatment with ceftriaxone (6) Mitral valve prolapse: (7) Anxiety: Plan: Takes venlafaxine regularly, which she continues. (8) HTN (hypertension): Plan: On losartan at home. Monitor blood pressure A-line is in place. (9) GERD (gastroesophageal reflux disease): Plan: Cont PPI daily per home regimen. (10) DVT prophylaxis: Plan: Lovenox, PPI Full Code Dispo-cont ICU care Plan: Called and updated him Admission and Anticipated Discharge Date Admission Date: August 19, 2021 Subjective 45-year-old woman with history of allergic rhinitis, mitral regurgitation, GERD, asthma who presents with shortness of breath. Found to have COVID-19 pneumonia. Currently being managed for acute hypoxic respiratory failure secondary to COVID-19 pneumonia, ventilator dependent respiratory failure, spontaneous pneumo thorax status post chest tube placement. Patient was intubated and extubated on 08/29/21 Has been febrile since Had completed remdesivir and dexamethasone And completed ceftriaxone for UTI. Developed fever since extubation yesterday. Started on Vanco and Zosyn. Was noted to have increased right pneumothorax with tension pneumo this morning on x-ray. Chest tube was adjusted and repeat chest x-ray shows significant improvement in right pneumothorax. Currently on BiPAP On Precedex. Review of Systems Review of Systems: Unobtainable due to reduced consciousness Physical Exam Constitutional: On BiPAP. Eyes: PERRL, conjunctivae normal, anicteric sclerae Respiratory: BIPAP, diminished breath sounds lung bases especially on right Right chest tube in situ with leak, connected to suction Cardiovascular: RRR. S1-S2 Gastrointestinal (Abdomen): normal bowel sounds, soft, nontender, no hepatosplenomegaly Musculoskeletal: No pedal edema Neurologic: Mildly sedated. Genitourinary: Ott in situ Results & Data Results & Data ([facility]) Vital Signs (Past 12 Hours) Vital Signs Temp Pulse Pulse Resp BP BP Pulse Ox 08/30/21 11:04 37.5 C 08/30/21 10:57 36.2 C L 66 118/63 92 08/30/21 10:18 107/54 L 08/30/21 10:17 91/48 L 08/30/21 09:58 37.7 C H 68 115/63 95 08/30/21 09:20 37.7 C H 95/51 L 08/30/21 08:58 76 90 08/30/21 07:39 75 25 H 89 L 08/30/21 07:11 66 20 94 08/30/21 07:00 39.3 C H 84 93 08/30/21 06:00 39.8 C H 76 94 08/30/21 05:00 39.8 C H 79 95 08/30/21 04:00 39.6 C H 80 94 08/30/21 03:43 80 26 H 94 08/30/21 03:00 39.3 C H 79 93 08/30/21 02:00 39.0 C H 76 95 08/30/21 01:59 39.0 C H 79 95 08/30/21 00:57 38.7 C H 74 119/60 93 08/29/21 23:57 38.5 C H 78 112/69 83 L 08/29/21 23:45 76 Laboratory Results Abnormal lab results 08/30/21 08/30/21 08/30/21 Range/Units 05:42 05:42 05:42 WBC 18.14 H (4.8-10.8) K/uL RBC 4.18 L (4.2-5.4) M/uL Hgb 10.2 L (12.0-16.0) g/dL Hct 32.5 L (37-47) % MCV 77.8 L (80-100) fL MCH 24.4 L (25-34) pg MCHC 31.4 L (32-36) g/dL RDW Coeff of Patrica 15.9 H (11.5-14.5) % MPV 11.6 H (7.4-10.4) fL D-Dimer 1440 H* (0-500) ug/L FEU BUN 29 H (7-18) mg/dl BUN/Creatinine Ratio 45.5 H (10-20) Glucose 65 L (70-99) mg/dl Calcium 7.9 L (8.5-10.1) mg/dl C-Reactive Protein 24.30 H (0-0.29) mg/dl Procalcitonin (0-0.5) ng/ml Urine Appearance (Clear) Urine pH (4.5-7.5) Ur Specific [place] (1.000-1.030) Urine Protein (Negative) Urine Blood (Negative) Urine Bilirubin (Negative) Ur Leukocyte Esterase (Negative) Urine WBC (Auto) (0-5) /hpf Urine RBC (Auto) (0-4) /hpf U Epithel Cells (Auto) (0-5) /lpf Urine Bacteria (Auto) (Negative) Urine Yeast (None Prsent) 08/30/21 08/30/21 Range/Units 05:42 06:00 WBC (4.8-10.8) K/uL RBC (4.2-5.4) M/uL Hgb (12.0-16.0) g/dL Hct (37-47) % MCV (80-100) fL MCH (25-34) pg MCHC (32-36) g/dL RDW Coeff of Patrica (11.5-14.5) % MPV (7.4-10.4) fL D-Dimer (0-500) ug/L FEU BUN (7-18) mg/dl BUN/Creatinine Ratio (10-20) Glucose (70-99) mg/dl Calcium (8.5-10.1) mg/dl C-Reactive Protein (0-0.29) mg/dl Procalcitonin 0.82 H (0-0.5) ng/ml Urine Appearance Cloudy A (Clear) Urine pH 8.0 H (4.5-7.5) Ur Specific [place] 1.040 H (1.000-1.030) Urine Protein 1+ H (Negative) Urine Blood 3+ H (Negative) Urine Bilirubin 1+ H (Negative) Ur Leukocyte Esterase Trace H (Negative) Urine WBC (Auto) 10-30 H (0-5) /hpf Urine RBC (Auto) >30 H (0-4) /hpf U Epithel Cells (Auto) >30 H (0-5) /lpf Urine Bacteria (Auto) 1+ H (Negative) Urine Yeast Budding A (None Prsent)
[2021-08-30] MEDS: PANTOprazole 40 MG in SYRINGE 0 ML IV SCH (12:21)
[2021-08-30] MEDS: DOCUSATE SODIUM/SENNA 50/8.6MG TAB PO SCH (14:28)
[2021-08-30] MEDS: ACETAMINOPHEN 1,000 MG/100 ML VIAL IV PRN (22:22)
[2021-08-31] MEDS: VANCOMYCIN HCL 1,000 MG in SODIUM CHLORIDE 0.9% 250 ML IV SCH ×3 (01:17→17:54)
[2021-08-31] MEDS: DEXMEDETOMIDINE HCL 200 MCG in SODIUM CHLORIDE 0.9% 48 ML IV SCH ×3 (02:32→10:18)
[2021-08-31] MEDS: PIPERACILLIN/TAZOBACTAM 4.5 GM in DEXTROSE 5% 100 ML IV SCH ×3 (06:10→22:05)
[2021-08-31] MEDS: ACETAMINOPHEN 1,000 MG/100 ML VIAL IV PRN (06:26)
[2021-08-31 06:40] LABS: Hematocrit (blood only) 28.7 % (37-47); Mean Corpuscular Hemoglobin 24.1 pg (25-34); Mean Corpuscular Hgb Conc 31.4 g/dL (32-36); Mean Corpuscular Volume 76.7 fL (80-100); Mean Platelet Volume 11.2 fL (7.4-10.4); Platelet Count 231 K/uL (130-400); RDW Coefficient of Variation 15.9 % (11.5-14.5); RDW Standard Deviation 44.1 fL (36.4-46.3); Red Blood Count 3.74 M/uL (4.2-5.4)
[2021-08-31 07:13] LABS: BUN Creatinine Ratio 44.2 (10-20); Est GFR (African American) 141.2 ml/min; Est GFR (Non-African American) 121.9 ml/min; Magnesium 2.4 mg/dl (1.8-2.4); Potassium 3.5 mmol/L (3.5-5.1)
[2021-08-31 07:27] LABS: C Reactive Protein 38.2 mg/dl (0-0.29); Phosphorus 1.8 mg/dl (2.5-4.9)
[2021-08-31] MEDS: ENOXAPARIN INJ 40 MG/0.4 ML SYR SQ SCH ×2 (07:33→22:06)
[2021-08-31] MEDS ORDERED: POTASSIUM PHOS 3 MMOL/1 ML INFUSION IV STA (07:52)
[2021-08-31] MEDS ORDERED: POTASSIUM PHOSPHATE 24 MMOL in SODIUM CHLORIDE 0.9% 500 ML IV ONE (08:00)
--- NOTE | 2021-08-31 09:49 | XRay Report ---
XR chest 1V portable INDICATION: MN ^f/u . TECHNIQUE: Single frontal radiograph of the chest was obtained. Comparison: Comparison is made to chest one view 08/30/2021 FINDINGS: Lines and tubes are stable. The cardiomediastinal silhouette is normal. Airspace opacities seen predo minantly in the lower lungs. There is a small right pneumothorax, unchanged from prior exam. IMPRESSION: 1. Right pneumothorax is essentially unchanged from prior exam. 2. Stable bilateral lower lung predominant airspace opacities. ACT 112: Negative or not required by law. Electronically signed by: Ryan Ortiz M.D. 08/31/2021 9:48 AM
[2021-08-31] MEDS: ASPIRIN 81 MG CHEW PO SCH (10:19)
[2021-08-31] MEDS: VENLAFAXINE HCL 37.5 MG TAB PO SCH ×2 (10:19→21:34)
[2021-08-31] MEDS: MULTI VIT W/MINERALS LIQUID 15 ML UDP NG SCH (10:21)
[2021-08-31] MEDS: DOCUSATE SODIUM/SENNA 50/8.6MG TAB PO SCH (10:21)
[2021-08-31] MEDS ORDERED: FUROSEMIDE 40 MG in SYRINGE 0 ML IV ONE (11:41)
--- NOTE | 2021-08-31 11:44 | Hospitalist Progress Note ---
Date of Service August 31, 2021 Assessment & Plan (1) Pneumonia due to 2019-nCoV: (2) Pneumothorax, right: (3) Acute respiratory failure with hypoxia: Plan: Secondary to COVID-19 pneumonia Intubated on 08/23. Complicated by spontaneous right pneumothorax s/p right chest tube on 08/25 Extubated to BIPAP on 08/29/21 Completed remdesivir and dexamethasone Right tension pneumothorax on 08/30/21. Likely due to some blockage in chest tube. Resolved by web analytics specialist CRP initially improved but now worsening upto 38 Procal increased to 2.17 Persistent leukocytosis Continue Vanco and Zosyn Cultures sent yesterday negative so far Continue management per web analytics specialist Dr. Ridley Continue to wean oxygen supplementation as tolerated Assess dysphagia screen. If passed may start oral intake slowly (4) Asthma: Plan: Continue plan as above. (5) UTI (urinary tract infection): Plan: E. Coli. Completed treatment with ceftriaxone (6) Mitral valve prolapse: (7) Anxiety: Plan: Takes venlafaxine regularly, which she continues. (8) HTN (hypertension): Plan: On losartan at home. Monitor blood pressure (9) GERD (gastroesophageal reflux disease): Plan: Cont PPI daily per home regimen. (10) DVT prophylaxis: Plan: Lovenox, PPI Full Code Dispo-cont ICU care Admission and Anticipated Discharge Date Admission Date: August 19, 2021 Subjective 45-year-old woman with history of allergic rhinitis, mitral regurgitation, GERD, asthma who presents with shortness of breath. Found to have COVID-19 pneumonia. Currently being managed for acute hypoxic respiratory failure secondary to COVID-19 pneumonia, ventilator dependent respiratory failure, spontaneous pneumo thorax status post chest tube placement. Patient was intubated and extubated on 08/29/21 Had completed remdesivir and dexamethasone And completed ceftriaxone for UTI. Has been having fevers. Currently on Vanco and Zosyn. Patient is currently awake and alert. Reports fatigue and some chest discomfort at chest tube site. Currently on ventimask Denies any chest pain. Reports occasional cough. Denies any nausea, vomiting, abdominal pain. Yet to move her bowels Review of Systems Review of Systems: All systems reviewed & are unremarkable except as noted in Subjective Physical Exam Constitutional: + ill appearing; no acute distress Eyes: PERRL, conjunctivae normal, anicteric sclerae ENMT: Hoarse voice Respiratory: Diminished breath sounds right lungs On ventimaks Right chest tube in situ with air leak Cardiovascular: Rate/Rhythm: regular rate and regular rhythm S1 S2 Gastrointestinal (Abdomen): normal bowel sounds, soft, nontender, no hepatosplenomegaly Musculoskeletal: No pedal edema Neurologic: PERRL, EOMI, accommodation nl, no face palsy, no dysarthria Genitourinary: Ott in situ Results & Data Results & Data ([facility]) Vital Signs (Past 12 Hours) Vital Signs Temp Pulse Pulse Resp BP Pulse Ox 08/31/21 11:00 86 91 08/31/21 10:55 36.5 C 08/31/21 10:00 69 95 08/31/21 09:00 66 93 08/31/21 08:16 69 20 94 08/31/21 08:00 68 95 08/31/21 07:10 38.4 C H 73 24 88 L 08/31/21 06:57 73 107/57 L 90 08/31/21 05:57 38.1 C H 72 96/63 L 91 08/31/21 04:57 37.7 C H 76 102/52 L 86 L 08/31/21 03:57 37.3 C 64 94/65 L 90 08/31/21 02:57 37.1 C 60 103/56 L 92 08/31/21 02:53 60 22 92 08/31/21 01:57 37.2 C 71 102/56 L 92 08/31/21 00:57 62 98/58 L 90 08/31/21 00:01 61 08/30/21 23:57 62 100/59 L 89 L Laboratory Results Abnormal lab results 08/31/21 08/31/21 08/31/21 Range/Units 05:31 05:31 05:31 WBC 17.00 H (4.8-10.8) K/uL RBC 3.74 L (4.2-5.4) M/uL Hgb 9.0 L (12.0-16.0) g/dL Hct 28.7 L (37-47) % MCV 76.7 L (80-100) fL MCH 24.1 L (25-34) pg MCHC 31.4 L (32-36) g/dL RDW Coeff of Patrica 15.9 H (11.5-14.5) % MPV 11.2 H (7.4-10.4) fL BUN 20 H (7-18) mg/dl Creatinine 0.45 L (0.6-1.2) mg/dl BUN/Creatinine Ratio 44.2 H (10-20) Calcium 7.0 L (8.5-10.1) mg/dl Phosphorus 1.8 L D (2.5-4.9) mg/dl C-Reactive Protein 38.20 H (0-0.29) mg/dl Procalcitonin 2.17 H (0-0.5) ng/ml
[2021-08-31] MEDS ORDERED: FUROSEMIDE 40 MG/4 ML VIAL IV ONE ×2 (11:45→12:00)
[2021-08-31] MEDS: PANTOprazole 40 MG in SYRINGE 0 ML IV SCH (11:47)
[2021-08-31 12:33] LABS: Hematocrit (blood only) 30.2 % (37-47); Hemoglobin 9.5 g/dL (12.0-16.0)
[2021-08-31] MEDS: D5W AND 1/2NSS 1,000 ML IV SCH (13:24)
--- NOTE | 2021-08-31 13:47 | Critical Care Progress Note ---
Date of Service August 31, 2021 Assessment & Plan (1) Pneumonia due to 2019-nCoV: (2) Acute respiratory failure with hypoxia: (3) Asthma: (4) Anxiety: (5) DVT prophylaxis: Plan: Reason Critically Ill: 45-year-old female with acute hypoxic respiratory failure PLAN: Neuro: Sedation: S/p neuromuscular blockade -X24 hours discontinued on 08/23 Precedex for restlessness Anxiety: Continue venlafaxine Resp: S/p VDRF --> acute hypoxic respiratory failure secondary to Covid pneumonia:--> Extubated 08/29/2021 Continue with dexamethasone for total of 10 days S/p remdesivir Maintain negative fluid balance Spontaneous right-sided pneumothorax Status post chest tube placement 08/25/2021 Continuous air leak appreciated Asthma: No significant bronchospasm on exam Continue leave albuterol/ipratropium nebulizer treatments Fluids/Renal: Monitor BUNs/creatinine Avoid nephrotoxic medication Replace electrolytes as needed ID: Covid pneumonia Asymptomatic E. coli bacteriuria -S/p Rocephin 1 g daily for 5 days, last dose 08/27/2021 New onset fever 08/29/2021 Empiric antibiotic started Repeat blood culture and urine culture 08/30/21 negative to date GI/Nutrition: Trickle tube feeds -Can increase tube feedings to goal Heme: Leukocytosis likely from steroid Continue to monitor Endocrine: ICU hyperglycemia protocol --Prophylaxis VTE: Lovenox GI: Lansoprazole Lines: Right subclavian placed 08/22, left arterial line placed 08/22, positive Ott, Right sided pigtail catheter 08/25/21 Diet: Clear liquids Plan: In/out: +1485, urine output 1275 Hypokalemia/hypophosphatemia being replaced Give 40 of Lasix today. Chest tube still having leak. Chest x-ray from today shows small right-sided pneumo Continue with vancomycin and Zosyn for the time being DC Precedex as well as IV fluids given the patient is tolerating diet Patient's : Louie: [phone] I have personally spent 33 minutes of critical care time in the direct management of this patient. This is a life/limb threatening event. This includes time spent evaluating patient, direct bedside care, chart review, placing orders, interpretation of diagnostic studies, discussion with consultants, patient, and family members, as well as other required patient management activities. This time is exclusive of all separately billable procedures, and teaching time and separate from and in addition to any other critical care service time. Please note the above document was generated using voice recognition software. It may contain grammatical, syntax or spelling errors. Admission and Anticipated Discharge Date Admission Date: August 19, 2021 Subjective Patient seen and examined at bedside. No acute distress, no adverse events overnight. Patient was sitting on a chair. Answering all questions appropriately Precedex has been turned off She was saturating 93-94% on 7 L oxygen mask Denies any chest pain, no headache, no nausea, no vomiting She is tolerating clear liquids Review of Systems Review of Systems: All systems reviewed & are unremarkable except as noted in Subjective Physical Exam Physical Exam: Constitutional: No acute distress HEENT: PERRLA Respiratory system: Decreased air entry bilaterally, no wheeze, rhonchi, positive crackles bilateral lower lobes CVS: S1-S2 positive, no murmurs or gallops Abdomen: Soft, nontender, nondistended, positive bowel sounds x4 Extremities: +2 pulses bilaterally radialis/ dorsalis pedis, no cyanosis, no edema Neuro: Awake and alert to self and place Psych: Normal mood and affect G/U: Positive Ott Right-sided pigtail catheter in place Skin: no rashes, warm and dry Lymphatic: no cervical or axillary lymphadenopathy Results & Data Results & Data ([facility]) Vital Signs (Past 12 Hours) Vital Signs Temp Pulse Pulse Resp BP BP Pulse Ox 08/31/21 12:24 36.5 C 22 133/60 94 08/31/21 12:00 67 94 08/31/21 11:00 86 91 08/31/21 10:55 36.5 C 08/31/21 10:00 69 95 08/31/21 09:00 66 93 08/31/21 08:16 69 20 94 08/31/21 08:00 68 95 08/31/21 07:10 38.4 C H 73 24 88 L 08/31/21 06:57 73 107/57 L 90 08/31/21 05:57 38.1 C H 72 96/63 L 91 08/31/21 04:57 37.7 C H 76 102/52 L 86 L 08/31/21 03:57 37.3 C 64 94/65 L 90 08/31/21 02:57 37.1 C 60 103/56 L 92 08/31/21 02:53 60 22 92 08/31/21 01:57 37.2 C 71 102/56 L 92 08/31/21 12:18 08/31/21 05:31 Coding Level of Care Code Critical Care 1st 30-74 mins Diagnoses Pneumonia due to 2019-nCoV U07.1; J12.82 Acute respiratory failure with hypoxia J96.01 Asthma J45.909 Anxiety F41.9 DVT prophylaxis Z29.9 Time Spent (min) 33
[2021-08-31] MEDS ORDERED: VANCOMYCIN TROUGH ONE (16:30)
--- NOTE | 2021-08-31 18:57 | Pharmacy Report ---
Pharmacy Vanc AUC Short Note - Date of Service August 31, 2021 - Assessment & Plan Assessment 45 year old F receiving vancomycin and zosyn for treatment of possible bacterial pneumonia in the setting of COVID-19 pneumonia. Blood and urine cultures negative to date. MRSA nasal (-). Day #2 of antimicrobial therapy. Plan Vancomycin * AUC/MARIA is the preferred PK/PD target for vancomycin * AUC guided dosing is effective and associated with decreased risk of nephroto xicity compared to traditional trough targets * Trough level of 11.6mcg/mL is predicted to achieve target AUC/MARIA of 400-600 mg/L.hr (AUCss- 455mg/L.hr) and may be associated with an 8% risk of nephrot oxicity * Continue dose of 1000 mg IV every 8 hours Pharmacy will continue to follow and will adjust dose/frequency as necessary. Thank you.
[2021-08-31] MEDS: NYSTATIN SUSP 500,000 U/5 ML UDC PO SCH (21:34)
[2021-09-01] MEDS: VANCOMYCIN HCL 1,000 MG in SODIUM CHLORIDE 0.9% 250 ML IV SCH ×2 (00:26→08:08)
[2021-09-01 06:09] LABS: Hematocrit (blood only) 27.3 % (37-47); Hemoglobin 8.5 g/dL (12.0-16.0); Mean Corpuscular Hemoglobin 23.9 pg (25-34); Mean Corpuscular Hgb Conc 31.1 g/dL (32-36); Mean Corpuscular Volume 76.9 fL (80-100); Mean Platelet Volume 11.2 fL (7.4-10.4); Platelet Count 245 K/uL (130-400); RDW Standard Deviation 44.5 fL (36.4-46.3); Red Blood Count 3.55 M/uL (4.2-5.4); White Blood Count 15.96 K/uL (4.8-10.8)
[2021-09-01] MEDS: PIPERACILLIN/TAZOBACTAM 4.5 GM in DEXTROSE 5% 100 ML IV SCH (06:15)
[2021-09-01 06:24] LABS: D Dimer 1990 ug/L FEU (0-500)
[2021-09-01 06:46] LABS: BUN Creatinine Ratio 42.1 (10-20); C Reactive Protein 30.1 mg/dl (0-0.29); Calcium 7.6 mg/dl (8.5-10.1); Creatinine Clr Calc Pharmacy 181.1 ml/min; Est GFR (African American) 143.4 ml/min; Est GFR (Non-African American) 123.7 ml/min; Magnesium 2.1 mg/dl (1.8-2.4); Phosphorus 2.1 mg/dl (2.5-4.9)
[2021-09-01] MEDS ORDERED: POTASSIUM PHOS 3 MMOL/1 ML INFUSION IV STA ×2 (06:58→08:36)
[2021-09-01] MEDS ORDERED: POTASSIUM CHLORIDE / WTR 20 MEQ/100 ML PLCT IV SCH (07:15)
[2021-09-01] MEDS ORDERED: POTASSIUM PHOSPHATE 15 MMOL in SODIUM CHLORIDE 0.9% 250 ML IV SCH (07:30)
[2021-09-01] MEDS: POTASSIUM CHLORIDE / WTR 10 MEQ/100 ML PLCT IV SCH ×6 (07:45→13:50)
[2021-09-01] MEDS: VENLAFAXINE HCL 37.5 MG TAB PO SCH ×2 (07:48→20:55)
[2021-09-01] MEDS: ASPIRIN 81 MG CHEW PO SCH (07:49)
[2021-09-01] MEDS: NYSTATIN SUSP 500,000 U/5 ML UDC PO SCH ×4 (07:49→20:55)
[2021-09-01] MEDS: ENOXAPARIN INJ 40 MG/0.4 ML SYR SQ SCH ×2 (07:50→20:56)
[2021-09-01] MEDS: MULTI VIT W/MINERALS LIQUID 15 ML UDP NG SCH (07:51)
[2021-09-01] MEDS: DOCUSATE SODIUM/SENNA 50/8.6MG TAB PO SCH (07:57)
--- NOTE | 2021-09-01 08:41 | XRay Report ---
XR chest 1V portable HISTORY: Respiratory failure. Shortness of breath. Right-sided pneumothorax. COMPARISON: Chest 08/31/2021. FINDINGS: Right basilar chest tube and a right subclavian central venous catheter are unchanged in po sition. Small right pneumothorax has decreased in size. This demonstrates a maximal pleural gap of 7 mm. The heart remains mildly enlarged. Patchy bilateral airspace opacities, right greater than left p ersist. IMPRESSION: 1. Decrease in size in the small right pneumothorax. Right-sided chest tube is unchanged in position. 2. No change in the patchy bilateral airspace opacities. ACT 112: Negative or not required by law. Electronically signed by: Maxwell Thapa M.D. 09/01/2021 8:40 AM
--- NOTE | 2021-09-01 08:50 | Critical Care Progress Note ---
Date of Service September 01, 2021 Assessment & Plan (1) Pneumonia due to 2019-nCoV: (2) Acute respiratory failure with hypoxia: (3) Asthma: (4) Anxiety: (5) DVT prophylaxis: Plan: Reason Critically Ill: 45-year-old female with acute hypoxic respiratory failure PLAN: Neuro: Sedation: Requirement resolved S/p neuromuscular blockade -X24 hours discontinued on 08/23 Anxiety: Continue venlafaxine Resp: S/p VDRF --> acute hypoxic respiratory failure secondary to Covid pneumonia:--> Extubated 08/29/2021 Continue with dexamethasone for total of 10 days: Completed S/p remdesivir Maintain negative fluid balance Spontaneous right-sided pneumothorax Status post chest tube placement 08/25/2021 Continuous air leak appreciated: Resolved -Waterseal today Asthma: No significant bronchospasm on exam Continue leave albuterol/ipratropium nebulizer treatments Fluids/Renal: Monitor BUNs/creatinine Avoid nephrotoxic medication Replace electrolytes as needed ID: Covid pneumonia Asymptomatic E. coli bacteriuria -S/p Rocephin 1 g daily for 5 days, last dose 08/27/2021 New onset fever 08/29/2021 Empiric antibiotic started Repeat blood culture and urine culture 08/30/21 negative to date -Discontinue antibiotics this time she has been afebrile for 24 hours cultures negative and suspect DVT of right upper extremity -We will be discontinuing all lines GI/Nutrition: -clear diet advance as tolerated Heme: Leukocytosis likely from steroid -Off empiric steroid treatment for Covid pneumonia Endocrine: ICU hyperglycemia protocol --Prophylaxis VTE: Lovenox: 40 every 12 GI: Lansoprazole Lines: -Right subclavian placed 08/22 -Discontinue today -left arterial line placed 08/22 -Discontinue today -positive Ott -Discontinue today -Right sided pigtail catheter 08/25/21 Diet: Clear liquids Patient's : Louie: [phone] Patient is stable for downgrade of ICU; ICU or pulmonary will continue to follow chest tube for management Admission and Anticipated Discharge Date Admission Date: August 19, 2021 Subjective No overnight events, patient feels improved and would like to try to eat Physical Exam Physical Exam: General: Alert and oriented x3. Skin: Warm, dry, Head: Atraumatic Ears, nose, mouth and throat: airway patent -Right-sided chest tube present Cardiovascular: Normal peripheral perfusion Respiratory: Can speak in full sentences Gastrointestinal: Non distended Musculoskeletal: No deformity Results & Data Results & Data ([facility]) Vital Signs (Past 12 Hours) Vital Signs Pulse BP Pulse Ox 09/01/21 06:14 72 102/57 L 91 09/01/21 05:14 78 106/60 92 09/01/21 04:14 80 112/59 L 89 L 09/01/21 03:14 73 110/59 L 93 09/01/21 02:14 73 107/60 92 09/01/21 01:00 73 92 09/01/21 00:00 72 86 L 08/31/21 23:31 97 H 08/31/21 23:00 68 93 08/31/21 22:00 77 91 08/31/21 21:00 74 93 Laboratory Results 09/01/21 09/01/21 09/01/21 Range/Units 05:32 05:32 05:32 WBC 15.96 H (4.8-10.8) K/uL RBC 3.55 L (4.2-5.4) M/uL Hgb 8.5 L (12.0-16.0) g/dL Hct 27.3 L (37-47) % MCV 76.9 L (80-100) fL MCH 23.9 L (25-34) pg MCHC 31.1 L (32-36) g/dL RDW Std Deviation 44.5 (36.4-46.3) fL RDW Coeff of Patrica 16.0 H (11.5-14.5) % Plt Count 245 (130-400) K/uL MPV 11.2 H (7.4-10.4) fL D-Dimer 1990 H* (0-500) ug/L FEU Sodium 137 (136-145) mmol/L Potassium 3.0 L (3.5-5.1) mmol/L Chloride 105 (98-107) mmol/L Carbon Dioxide 22 (21-32) mmol/L Anion Gap 10.0 (3-11) BUN 18 (7-18) mg/dl Creatinine 0.43 L (0.6-1.2) mg/dl Est Cr Clr Drug Dosing 181.1 ml/min Est GFR ( Amer) 143.4 ml/min Est GFR (Non-Af Amer) 123.7 ml/min BUN/Creatinine Ratio 42.1 H (10-20) Glucose 76 (70-99) mg/dl Calcium 7.6 L (8.5-10.1) mg/dl Phosphorus 2.1 L (2.5-4.9) mg/dl Magnesium 2.1 (1.8-2.4) mg/dl C-Reactive Protein 30.10 H (0-0.29) mg/dl Vancomycin Trough (See Comment) mcg/ml 08/31/21 08/31/21 Range/Units 16:27 12:18 WBC (4.8-10.8) K/uL RBC (4.2-5.4) M/uL Hgb 9.5 L (12.0-16.0) g/dL Hct 30.2 L (37-47) % MCV (80-100) fL MCH (25-34) pg MCHC (32-36) g/dL RDW Std Deviation (36.4-46.3) fL RDW Coeff of Patrica (11.5-14.5) % Plt Count (130-400) K/uL MPV (7.4-10.4) fL D-Dimer (0-500) ug/L FEU Sodium (136-145) mmol/L Potassium (3.5-5.1) mmol/L Chloride (98-107) mmol/L Carbon Dioxide (21-32) mmol/L Anion Gap (3-11) BUN (7-18) mg/dl Creatinine (0.6-1.2) mg/dl Est Cr Clr Drug Dosing ml/min Est GFR ( Amer) ml/min Est GFR (Non-Af Amer) ml/min BUN/Creatinine Ratio (10-20) Glucose (70-99) mg/dl Calcium (8.5-10.1) mg/dl Phosphorus (2.5-4.9) mg/dl Magnesium (1.8-2.4) mg/dl C-Reactive Protein (0-0.29) mg/dl Vancomycin Trough 11.6 (See Comment) mcg/ml Coding Level of Care Code Critical Care 1st 30-74 mins Diagnoses Pneumonia due to 2019-nCoV U07.1; J12.82 Acute respiratory failure with hypoxia J96.01 Asthma J45.909 Anxiety F41.9 DVT prophylaxis Z29.9
--- NOTE | 2021-09-01 11:19 | Ultrasound Report ---
US venous doppler UE RT HISTORY: 45 years-old Female warmth r/o dvt acute pain and swelling of the right upper extremity COMPARISON: None TECHNIQUE: Multiple real-time sonographic images of the right upper extremity deep venous structures were obtained assessing grayscale appearance, color and spectral flow FINDINGS: Study limited secondary to overlying bandage material. Normal flow and phasicity. No deep venous thro mbi identified. IMPRESSION: No sonographic evidence of deep venous thrombosis. ACT 112: Negative or not required by law. The above report was generated using voice recognition software. It may contain grammatical, syntax o r spelling errors. Electronically signed by: Faisal Eugene M.D. 09/01/2021 11:18 AM
[2021-09-01] MEDS: PANTOprazole 40 MG in SYRINGE 0 ML IV SCH (11:54)
--- NOTE | 2021-09-01 12:53 | XRay Report ---
XR chest 1V portable HISTORY: 45 years-old Female PTX follow-up study in a patient with a right apical pneumothorax COMPARISON: Chest radiograph of same day at 6:40 AM TECHNIQUE: Portable AP view of the chest FINDINGS: Cardiac silhouette is enlarged. Right subclavian central venous catheter is in unchanged positioning. Tiny right apical pneumothorax with pleural separation of 7 mm is unchanged. Probable trace pleural effusions. Unchanged positioning of the right lateral lung base chest tube. Interstitial coarsening w ith right greater than left airspace opacities, unchanged. Degenerative changes of the shoulders and spine. IMPRESSION: 1. Unchanged tiny right apical pneumothorax with stable positioning of the right-sided chest tube. 2. Unchanged multifocal bilateral airspace opacities. ACT 112: Negative or not required by law. The above report was generated using voice recognition software. It may contain grammatical, syntax o r spelling errors. Electronically signed by: Faisal Eugene M.D. 09/01/2021 12:52 PM
--- NOTE | 2021-09-01 13:19 | Hospitalist Progress Note ---
Date of Service September 01, 2021 Assessment & Plan (1) Pneumonia due to 2019-nCoV: (2) Pneumothorax, right: (3) Acute respiratory failure with hypoxia: Plan: Secondary to COVID-19 pneumonia Intubated on 08/23. Complicated by spontaneous right pneumothorax s/p right chest tube on 08/25 Extubated to BIPAP on 08/29/21 Completed remdesivir and dexamethasone Leukocytosis improving Cultures negative so far Vanc and zosyn discontinued Continue chest tube management per [facility] specialists Dr. Isaac Continue to wean oxygen supplementation as tolerated Tolerating clear liquid Hypokalemic and hypophosphatemic today. Replete (4) Asthma: (5) UTI (urinary tract infection): Plan: E. Coli. Completed treatment with ceftriaxone (6) Mitral valve prolapse: (7) Anxiety: Plan: Takes venlafaxine regularly, which she continues. (8) HTN (hypertension): Plan: On losartan at home. Monitor blood pressure (9) GERD (gastroesophageal reflux disease): Plan: Cont PPI daily per home regimen. (10) DVT prophylaxis: Plan: Lovenox, PPI Full Code Dispo-cont ICU care Plan: PT/OT D/C [place] Admission and Anticipated Discharge Date Admission Date: August 19, 2021 Subjective 45-year-old woman with history of allergic rhinitis, mitral regurgitation, GERD, asthma who presents with shortness of breath. Found to have COVID-19 pneumonia. Currently being managed for acute hypoxic respiratory failure secondary to COVID-19 pneumonia, spontaneous right pneumothorax status post chest tube placement. Patient was intubated and extubated on 08/29/21 Has completed remdesivir and dexamethasone Completed ceftriaxone for UTI. Was having fevers post extubation. Was on Vanco and Zosyn. Last fever recorded is yesterday at 7am Reports fatigue and some occasional productive cough Denies any chest pain. Has some discomfort at right chest tube site Denies any nausea, vomiting, abdominal pain. Denies any headache/lightheadedness Yet to move her bowels but passed flatus Tolerating clears Review of Systems Review of Systems: All systems reviewed & are unremarkable except as noted in Subjective Physical Exam Constitutional: no acute distress Eyes: PERRL, conjunctivae normal, anicteric sclerae ENMT: Nasal cannula Respiratory: Not in respiratory distress Air entry bilaterally. Coarse breath sounds Cardiovascular: Rate/Rhythm: regular rate and regular rhythm S1 S2 Gastrointestinal (Abdomen): normal bowel sounds, soft, nontender, no hepatosplenomegaly Musculoskeletal: No pedal edema Neurologic: PERRL, EOMI, accommodation nl, no face palsy, no dysarthria Psychiatric: A+Ox3, euthymic affect Genitourinary: Morse in situ Results & Data Results & Data ([facility]) Vital Signs (Past 12 Hours) Vital Signs Temp Pulse Resp BP Pulse Ox 09/01/21 12:14 37.2 C 75 22 114/73 91 09/01/21 11:14 72 111/66 92 09/01/21 10:14 75 104/67 94 09/01/21 09:14 88 109/58 L 91 09/01/21 08:14 37.2 C 78 22 105/64 91 09/01/21 07:14 72 112/62 93 09/01/21 06:14 72 102/57 L 91 09/01/21 05:14 78 106/60 92 09/01/21 04:14 80 112/59 L 89 L 09/01/21 03:14 73 110/59 L 93 09/01/21 02:14 73 107/60 92 Laboratory Results Abnormal lab results 09/01/21 09/01/21 09/01/21 Range/Units 05:32 05:32 05:32 WBC 15.96 H (4.8-10.8) K/uL RBC 3.55 L (4.2-5.4) M/uL Hgb 8.5 L (12.0-16.0) g/dL Hct 27.3 L (37-47) % MCV 76.9 L (80-100) fL MCH 23.9 L (25-34) pg MCHC 31.1 L (32-36) g/dL RDW Coeff of Patrica 16.0 H (11.5-14.5) % MPV 11.2 H (7.4-10.4) fL D-Dimer 1990 H* (0-500) ug/L FEU Potassium 3.0 L (3.5-5.1) mmol/L Creatinine 0.43 L (0.6-1.2) mg/dl BUN/Creatinine Ratio 42.1 H (10-20) Calcium 7.6 L (8.5-10.1) mg/dl Phosphorus 2.1 L (2.5-4.9) mg/dl C-Reactive Protein 30.10 H (0-0.29) mg/dl
[2021-09-02 08:02] LABS: Hematocrit (blood only) 28.7 % (37-47); Hemoglobin 9.1 g/dL (12.0-16.0); Mean Corpuscular Hemoglobin 24.1 pg (25-34); Mean Corpuscular Hgb Conc 31.7 g/dL (32-36); Mean Corpuscular Volume 75.9 fL (80-100); Mean Platelet Volume 11.3 fL (7.4-10.4); Platelet Count 312 K/uL (130-400); RDW Coefficient of Variation 16.4 % (11.5-14.5); RDW Standard Deviation 44.6 fL (36.4-46.3); Red Blood Count 3.78 M/uL (4.2-5.4); White Blood Count 10.59 K/uL (4.8-10.8)
--- NOTE | 2021-09-02 08:18 | XRay Report ---
XR chest 1V portable HISTORY: 45 years-old Female f/u follow-up study in a patient with shortness of breath COMPARISON: Chest radiograph 09/01/2021 TECHNIQUE: Portable AP view of the chest FINDINGS: Interval removal of the right subclavian central venous catheter. The cardiac silhouette is enlarged. Stable positioning of the right basilar chest tube. The previously noted tiny right apical pneumotho rax is not definitively seen. Small pleural effusions. Right greater than left multifocal airspace op acities are redemonstrated and appear stable to slightly improved. No acute fracture. IMPRESSION: 1. Unchanged positioning of the right basilar chest tube. The previously described tiny right apical pneumothorax is not definitively seen. 2. Right greater than left bilateral airspace opacities appear stable to slightly improved. 3. Small pleural effusions. 4. Interval removal of the right subclavian central venous catheter. ACT 112: Negative or not required by law. The above report was generated using voice recognition software. It may contain grammatical, syntax o r spelling errors. Electronically signed by: Faisal Eugene M.D. 09/02/2021 8:17 AM
[2021-09-02] MEDS: ENOXAPARIN INJ 40 MG/0.4 ML SYR SQ SCH ×2 (08:22→20:49)
[2021-09-02] MEDS: ASPIRIN 81 MG CHEW PO SCH (08:22)
[2021-09-02] MEDS: MULTI VIT W/MINERALS LIQUID 15 ML UDP NG SCH (08:22)
[2021-09-02] MEDS: NYSTATIN SUSP 500,000 U/5 ML UDC PO SCH ×4 (08:23→20:49)
[2021-09-02] MEDS: VENLAFAXINE HCL 37.5 MG TAB PO SCH ×2 (08:23→20:50)
[2021-09-02] MEDS: DOCUSATE SODIUM/SENNA 50/8.6MG TAB PO SCH (08:26)
[2021-09-02 08:44] LABS: BUN Creatinine Ratio 27.6 (10-20); Calcium 8.2 mg/dl (8.5-10.1); Creatinine Clr Calc Pharmacy 171.8 ml/min; Est GFR (African American) 141.2 ml/min; Est GFR (Non-African American) 121.9 ml/min; Magnesium 2.3 mg/dl (1.8-2.4); Phosphorus 2.5 mg/dl (2.5-4.9); Potassium 3.9 mmol/L (3.5-5.1)
[2021-09-02] MEDS ORDERED: MINERAL OIL 30 ML UDC PO ONE (12:15)
--- NOTE | 2021-09-02 12:32 | Critical Care Progress Note ---
Date of Service September 02, 2021 Assessment & Plan (1) Pneumonia due to 2019-nCoV: (2) Acute respiratory failure with hypoxia: (3) Asthma: (4) Anxiety: (5) DVT prophylaxis: Plan: Reason Critically Ill: 45-year-old female with acute hypoxic respiratory failure PLAN: Neuro: Anxiety: Continue venlafaxine Resp: S/p VDRF --> acute hypoxic respiratory failure secondary to Covid pneumonia:--> Extubated 08/29/2021 Continue with dexamethasone for total of 10 days: Completed S/p remdesivir Maintain negative fluid balance Spontaneous right-sided pneumothorax Status post chest tube placement 08/25/2021: Removed 09/02/2021 -Patient to avoid air travel scuba diving and other pressure dependent activities Asthma: No significant bronchospasm on exam Continue leave albuterol/ipratropium nebulizer treatments Hoarseness -Possible ENT evaluation if hoarseness persists ID: Covid pneumonia Asymptomatic E. coli bacteriuria -S/p Rocephin 1 g daily for 5 days, last dose 08/27/2021 New onset fever 08/29/2021 Empiric antibiotic started Repeat blood culture and urine culture 08/30/21 negative to date -Discontinued antibiotics and a line holiday GI/Nutrition: -Reviewed speech therapy recommendations advance diet as tolerated Heme: Leukocytosis: Improving -Off empiric steroid treatment for Covid pneumonia Endocrine: ICU hyperglycemia protocol --Prophylaxis VTE: Lovenox: 40 every 12 GI: Lansoprazole Lines: -Right subclavian placed 08/22 -Discontinued -left arterial line placed 08/22 -Discontinued -positive Ott -Discontinued -Right sided pigtail catheter 08/25/21 -Discontinued 09/02 Diet: Clear liquids Patient's : Louie: [phone] Stable for downgrade out of ICU, ICU team will sign off Admission and Anticipated Discharge Date Admission Date: August 19, 2021 Subjective No overnight events, tolerated removal of chest tube. Physical Exam Physical Exam: General: Alert and oriented x3. Skin: Warm, dry, Head: Atraumatic Ears, nose, mouth and throat: airway patent -Right-sided chest tube removed by me Cardiovascular: Normal peripheral perfusion Respiratory: Can speak in full sentences Gastrointestinal: Non distended Musculoskeletal: No deformity Results & Data Results & Data ([facility]) Vital Signs (Past 12 Hours) Vital Signs Temp Pulse Resp BP Pulse Ox 09/02/21 11:39 36.9 C 73 22 124/78 91 09/02/21 10:39 73 134/76 93 09/02/21 09:39 86 128/80 93 09/02/21 08:09 36.9 C 78 20 119/83 92 09/02/21 07:09 69 126/78 91 09/02/21 06:09 69 19 119/75 95 09/02/21 05:09 66 20 122/79 93 09/02/21 04:08 72 121/78 89 L 09/02/21 04:00 36.6 C 09/02/21 03:08 70 124/80 90 09/02/21 02:08 68 123/76 89 L 09/02/21 01:08 66 22 120/75 92 Diagnostic Findings XR chest 1V portable HISTORY: 45 years-old Female f/u follow-up study in a patient with shortness of breath COMPARISON: Chest radiograph 09/01/2021 TECHNIQUE: Portable AP view of the chest FINDINGS: Interval removal of the right subclavian central venous catheter. The cardiac silhouette is enlarged. Stable positioning of the right basilar chest tube. The previously noted tiny right apical pneumothorax is not definitively seen. Small pleural effusions. Right greater than left multifocal airspace opacities are redemonstrated and appear stable to slightly improved. No acute fracture. IMPRESSION: 1. Unchanged positioning of the right basilar chest tube. The previously described tiny right apical pneumothorax is not definitively seen. 2. Right greater than left bilateral airspace opacities appear stable to slightly improved. 3. Small pleural effusions. 4. Interval removal of the right subclavian central venous catheter. XR chest 1V portable HISTORY: Status post chest tube removal. COMPARISON: Chest 09/02/2021. FINDINGS: The right basilar chest tube has been removed. No pneumothorax nancy ntified. The heart is top normal in size. Trace right pleural effusion. Patchy bilateral airspace opacities are again noted. IMPRESSION: 1. Interval removal of the right-sided chest tube. No definite pneumothorax. 2. Trace right pleural effusion. 3. Multifocal bilateral airspace opacities are again noted. Coding Level of Care Code 20164 Subseq Obs Care Lvl 3 Diagnoses Pneumonia due to 2019-nCoV U07.1; J12.82 Acute respiratory failure with hypoxia J96.01 Asthma J45.909 Anxiety F41.9 DVT prophylaxis Z29.9
--- NOTE | 2021-09-02 13:02 | XRay Report ---
XR chest 1V portable HISTORY: Status post chest tube removal. COMPARISON: Chest 09/02/2021. FINDINGS: The right basilar chest tube has been removed. No pneumothorax identified. The heart is top normal in size. Trace right pleural effusion. Patchy bilateral airspace opacities are again noted. IMPRESSION: 1. Interval removal of the right-sided chest tube. No definite pneumothorax. 2. Trace right pleural effusion. 3. Multifocal bilateral airspace opacities are again noted. ACT 112: Negative or not required by law. Electronically signed by: Maxwell Thapa M.D. 09/02/2021 1:01 PM
--- NOTE | 2021-09-02 13:04 | Hospitalist Progress Note ---
Date of Service September 02, 2021 Assessment & Plan (1) Pneumonia due to 2019-nCoV: (2) Pneumothorax, right: (3) Acute respiratory failure with hypoxia: Plan: Secondary to COVID-19 pneumonia Intubated on 08/23. Complicated by spontaneous right pneumothorax s/p right chest tube on 08/25 Extubated to BIPAP on 08/29/21 Completed remdesivir and dexamethasone Leukocytosis resolved Cultures negative so far Right chest tube removed earlier today by [employer] Continue to wean oxygen supplementation as tolerated Tolerating clear liquid (4) Asthma: (5) UTI (urinary tract infection): Plan: E. Coli. Completed treatment with ceftriaxone (6) Mitral valve prolapse: (7) Anxiety: Plan: Takes venlafaxine regularly, which she continues. (8) HTN (hypertension): Plan: On losartan at home. Monitor blood pressure (9) GERD (gastroesophageal reflux disease): Plan: Cont PPI daily per home regimen. (10) DVT prophylaxis: Plan: Lovenox, PPI Full Code Dispo-Downgrade to PCU Plan: Hand swelling. IV and arterial line has been removed USS right no DVT Admission and Anticipated Discharge Date Admission Date: August 19, 2021 Subjective 45-year-old woman with history of allergic rhinitis, mitral regurgitation, GERD, asthma who presents with shortness of breath. Found to have COVID-19 pneumonia. Currently being managed for acute hypoxic respiratory failure secondary to COVID-19 pneumonia, spontaneous right pneumothorax status post chest tube placement. Patient was intubated and extubated on 08/29/21 Has completed remdesivir and dexamethasone Completed ceftriaxone for UTI. Has been afebrile since 08/31 Patient is feeling better today Chest tube removed by [employer] today. Still reports fatigue but improving Has cough. Denied any chest pain No nausea, vomiting, abd pain Passing flatus and yet to have a BM Review of Systems Review of Systems: All systems reviewed & are unremarkable except as noted in Subjective Physical Exam Constitutional: no acute distress Eyes: PERRL, conjunctivae normal, anicteric sclerae ENMT: Nasal cannula in situ Respiratory: Reduced breath sounds for lung bases Not in respiratory distress. On nasal oxygen Cardiovascular: Rate/Rhythm: regular rate and regular rhythm S1 S2 Gastrointestinal (Abdomen): normal bowel sounds, soft, nontender, no hepatosplenomegaly Musculoskeletal: Some edema in the hands No pedal edema Neurologic: PERRL, EOMI, accommodation nl, no face palsy, no dysarthria Psychiatric: A+Ox3, euthymic affect Results & Data Results & Data ([facility]) Vital Signs (Past 12 Hours) Vital Signs Temp Pulse Resp BP Pulse Ox 09/02/21 11:39 36.9 C 73 22 124/78 91 09/02/21 10:39 73 134/76 93 09/02/21 09:39 86 128/80 93 09/02/21 08:09 36.9 C 78 20 119/83 92 09/02/21 07:09 69 126/78 91 09/02/21 06:09 69 19 119/75 95 09/02/21 05:09 66 20 122/79 93 09/02/21 04:08 72 121/78 89 L 09/02/21 04:00 36.6 C 09/02/21 03:08 70 124/80 90 09/02/21 02:08 68 123/76 89 L 09/02/21 01:08 66 22 120/75 92 Laboratory Results Abnormal lab results 09/02/21 09/02/21 Range/Units 07:01 07:01 RBC 3.78 L (4.2-5.4) M/uL Hgb 9.1 L (12.0-16.0) g/dL Hct 28.7 L (37-47) % MCV 75.9 L (80-100) fL MCH 24.1 L (25-34) pg MCHC 31.7 L (32-36) g/dL RDW Coeff of Patrica 16.4 H (11.5-14.5) % MPV 11.3 H (7.4-10.4) fL Creatinine 0.45 L (0.6-1.2) mg/dl BUN/Creatinine Ratio 27.6 H (10-20) Calcium 8.2 L (8.5-10.1) mg/dl
[2021-09-02] MEDS: PANTOprazole 40 MG in SYRINGE 0 ML IV SCH (13:49)
[2021-09-02] MEDS: POLYETHYLENE (MIRALAX) 17 GM PACK PO PRN (20:49)
[2021-09-03 06:32] LABS: Hematocrit (blood only) 26.2 % (37-47); Hemoglobin 8.4 g/dL (12.0-16.0); Mean Corpuscular Hemoglobin 24.3 pg (25-34); Mean Corpuscular Hgb Conc 32.1 g/dL (32-36); Mean Corpuscular Volume 75.7 fL (80-100); Mean Platelet Volume 10.5 fL (7.4-10.4); Platelet Count 357 K/uL (130-400); RDW Coefficient of Variation 16.4 % (11.5-14.5); RDW Standard Deviation 44.8 fL (36.4-46.3); Red Blood Count 3.46 M/uL (4.2-5.4); White Blood Count 9.24 K/uL (4.8-10.8)
[2021-09-03 07:07] LABS: BUN Creatinine Ratio 21.2 (10-20); Calcium 8.1 mg/dl (8.5-10.1); Creatinine Clr Calc Pharmacy 157.5 ml/min; Est GFR (African American) 137.3 ml/min; Est GFR (Non-African American) 118.5 ml/min; Magnesium 2.4 mg/dl (1.8-2.4); Phosphorus 2.9 mg/dl (2.5-4.9); Potassium 3.5 mmol/L (3.5-5.1)
[2021-09-03] MEDS: NYSTATIN SUSP 500,000 U/5 ML UDC PO SCH ×4 (09:10→20:33)
[2021-09-03] MEDS: VENLAFAXINE HCL 37.5 MG TAB PO SCH ×2 (09:10→20:32)
[2021-09-03] MEDS: ASPIRIN 81 MG CHEW PO SCH (09:10)
[2021-09-03] MEDS: DOCUSATE SODIUM/SENNA 50/8.6MG TAB PO SCH (09:10)
[2021-09-03] MEDS: ENOXAPARIN INJ 40 MG/0.4 ML SYR SQ SCH ×2 (09:10→20:33)
[2021-09-03] MEDS: POLYETHYLENE (MIRALAX) 17 GM PACK PO PRN (09:10)
[2021-09-03] MEDS: MULTI VIT W/MINERALS LIQUID 15 ML UDP NG SCH (09:11)
[2021-09-03] MEDS: PANTOprazole 40 MG in SYRINGE 0 ML IV SCH (11:41)
--- NOTE | 2021-09-03 16:39 | Hospitalist Progress Note ---
Date of Service September 03, 2021 Assessment & Plan (1) Pneumothorax, right: (2) Acute respiratory failure with hypoxia: (3) Pneumonia due to 2019-nCoV: Plan: 45-year-old female with PMH of allergic rhinitis, MR, GERD, asthma came 08/20 with C/O shortness of breath. In the ED, her BP was low 60s/30s and was saturating 70% on room air. Following admission, she was managed for the following: #. Pneumonia due to 2019-nCoV: #. Pneumothorax, right: #. Acute respiratory failure with hypoxia: Secondary to COVID-19 pneumonia Intubated on 08/23. Complicated by spontaneous right pneumothorax s/p right chest tube on 08/25 Extubated to BIPAP on 08/29/21 Completed remdesivir and dexamethasone Leukocytosis resolved Cultures negative so far Right chest tube removed 09/02 Continue to wean oxygen supplementation as tolerated, currently on 2 L Tolerating diet #. Asthma: home meds, under control #. UTI (urinary tract infection): E. Coli. Completed treatment with ceftriaxone #. Mitral valve prolapse: #. Anxiety: Takes venlafaxine regularly, which she continues. #. HTN (hypertension): On losartan at home. Monitor blood pressure #. GERD (gastroesophageal reflux disease): Cont PPI daily per home regimen. #. DVT prophylaxis: Lovenox Full Code Dispo- c/w PCU care. PT/OT recommending inpatient rehab, CM to assist with DC planning, anticipate discharge in 1 to 2 days. #. Hand swelling. IV and arterial line has been removed USS right no DVT Admission and Anticipated Discharge Date Admission Date: August 19, 2021 Subjective Feeling betterPatient was sitting up in bed, on 2 L nasal cannula oxygen, NAD, no issues overnight. Patient. Patient denies any headache/dizziness/other review of symptoms. Patient is eating okay and had a small bowel movement yesterday night. Physical Exam Physical Exam: GENERAL: Alert and oriented x3. NAD, on 2 L nasal cannula. HEENT: No pallor, no icterus. Pupils equal, round and reactive to light. Oral mucosa moist. NECK: No JVD, no neck masses. HEART: S1 and S2 heard. Regular rate and rhythm. No murmur, no gallop. RESPIRATORY SYSTEM: Normal AP diameter. No accessory muscle use. No wheezing; bibasilar crackles appreciated. ABDOMEN: Soft, bowel sounds present, nontender, no distention. CENTRAL NERVOUS SYSTEM: No facial droop. Speech is clear. Obeys simple commands. Moves extremities. EXTREMITIES: No edema, no erythema seen. Results & Data Results & Data ([facility]) Vital Signs (Past 12 Hours) Vital Signs Temp Pulse Pulse Resp BP Pulse Ox 09/03/21 15:46 37.0 C 84 18 122/74 96 09/03/21 15:28 77 09/03/21 12:26 37 C 78 18 129/60 91 09/03/21 08:03 37.1 C 73 18 112/64 93
[2021-09-04 06:42] LABS: Hematocrit (blood only) 25.4 % (37-47); Hemoglobin 8.1 g/dL (12.0-16.0); Mean Corpuscular Hemoglobin 24.3 pg (25-34); Mean Corpuscular Hgb Conc 31.9 g/dL (32-36); Mean Corpuscular Volume 76.3 fL (80-100); Mean Platelet Volume 9.8 fL (7.4-10.4); Platelet Count 376 K/uL (130-400); RDW Coefficient of Variation 16.3 % (11.5-14.5); RDW Standard Deviation 44.6 fL (36.4-46.3); Red Blood Count 3.33 M/uL (4.2-5.4); White Blood Count 9.19 K/uL (4.8-10.8)
[2021-09-04] MEDS ORDERED: POTASSIUM CHLORIDE CRTAB 20 MEQ TABCR PO STA (08:40)
--- NOTE | 2021-09-04 09:41 | XRay Report ---
XR chest 1V portable HISTORY: Shortness of breath. f/u, increasing O2 requirement COMPARISON: Chest 09/02/2021. FINDINGS: No pneumothorax. The heart is normal in size. Multifocal patchy bilateral airspace opacitie s are not significantly changed. Trace bilateral pleural effusions persist. No rib fractures. IMPRESSION: No change in the multifocal bilateral airspace opacities and trace bilateral pleural effusions. ACT 112: Negative or not required by law. Electronically signed by: Maxwell Thapa M.D. 09/04/2021 9:40 AM
[2021-09-04 09:43] LABS: Ferritin 459.8 ng/ml (8-388)
[2021-09-04 10:06] LABS: Folate (Folic Acid) 12.2 ng/ml (>5.38)
[2021-09-04] MEDS: MULTI VIT W/MINERALS LIQUID 15 ML UDP NG SCH (11:12)
[2021-09-04] MEDS: ENOXAPARIN INJ 40 MG/0.4 ML SYR SQ SCH ×2 (11:12→20:53)
[2021-09-04] MEDS: ASPIRIN 81 MG CHEW PO SCH (11:13)
[2021-09-04] MEDS: NYSTATIN SUSP 500,000 U/5 ML UDC PO SCH ×4 (11:14→20:53)
[2021-09-04] MEDS: DOCUSATE SODIUM/SENNA 50/8.6MG TAB PO SCH (11:14)
[2021-09-04] MEDS: VENLAFAXINE HCL 37.5 MG TAB PO SCH ×2 (11:14→20:54)
[2021-09-04] MEDS: PANTOprazole 40 MG TAB PO SCH (12:50)
--- NOTE | 2021-09-04 14:39 | Hospitalist Progress Note ---
Date of Service September 04, 2021 Assessment & Plan (1) Pneumothorax, right: (2) Acute respiratory failure with hypoxia: (3) Pneumonia due to 2019-nCoV: Plan: 45-year-old female with PMH of allergic rhinitis, MR, GERD, asthma came 08/20 with C/O shortness of breath. In the ED, her BP was low 60s/30s and was saturating 70% on room air. Following admission, she was managed for the following: #. Pneumonia due to 2019-nCoV: #. Pneumothorax, right: #. Acute respiratory failure with hypoxia: Secondary to COVID-19 pneumonia Intubated on 08/23. Complicated by spontaneous right pneumothorax s/p right chest tube on 08/25 Extubated to BIPAP on 08/29/21 Completed remdesivir and dexamethasone Leukocytosis resolved Cultures negative so far Right chest tube removed 09/02 Patient tolerating room air at bedside exam. Tolerating diet #. Asthma: home meds, under control #. UTI (urinary tract infection): E. Coli. Completed treatment with ceftriaxone #. Mitral valve prolapse: #. Anxiety: Takes venlafaxine regularly, which she continues. #. HTN (hypertension): On losartan at home. Monitor blood pressure #. GERD (gastroesophageal reflux disease): Cont PPI daily per home regimen. #. DVT prophylaxis: Lovenox Full Code Dispo- c/w PCU care. PT/OT recommending inpatient rehab, CM to assist with DC planning, can be discharged when accepted. CM Working on [facility]. #. Hand swelling. IV and arterial line has been removed. Improving. USS right no DVT Admission and Anticipated Discharge Date Admission Date: August 19, 2021 Subjective Patient was sitting up in bed, on room air, NAD, no issues overnight. Patient reports feeling better. Patient denies any headache/dizziness/other review of symptoms. Patient is eating okay and had a small bowel movement yesterday night. Per RN, patient seemed somewhat confused yesterday for short period of time. Per RN, no acute events overnight. Physical Exam Physical Exam: GENERAL: Alert and oriented x3. NAD, on room air. HEENT: No pallor, no icterus. Pupils equal, round and reactive to light. Oral mucosa moist. NECK: No JVD, no neck masses. HEART: S1 and S2 heard. Regular rate and rhythm. No murmur, no gallop. RESPIRATORY SYSTEM: Normal AP diameter. No accessory muscle use. No wheezing; bibasilar crackles appreciated. ABDOMEN: Soft, bowel sounds present, nontender, no distention. CENTRAL NERVOUS SYSTEM: No facial droop. Speech is clear. Obeys simple commands. Moves extremities. EXTREMITIES: No edema, no erythema seen. Results & Data Results & Data ([facility]) Vital Signs (Past 12 Hours) Vital Signs Temp Pulse Pulse Resp BP Pulse Ox 09/04/21 11:49 36.8 C 94 H 20 133/82 95 09/04/21 10:22 84 09/04/21 07:36 37.1 C 67 22 129/79 93
[2021-09-05 06:23] LABS: Hematocrit (blood only) 25.7 % (37-47); Hemoglobin 7.9 g/dL (12.0-16.0); Mean Corpuscular Hemoglobin 23.9 pg (25-34); Mean Corpuscular Hgb Conc 30.7 g/dL (32-36); Mean Corpuscular Volume 77.6 fL (80-100); Mean Platelet Volume 9.9 fL (7.4-10.4); Platelet Count 404 K/uL (130-400); RDW Coefficient of Variation 16.8 % (11.5-14.5); RDW Standard Deviation 45.4 fL (36.4-46.3); Red Blood Count 3.31 M/uL (4.2-5.4); White Blood Count 7.94 K/uL (4.8-10.8)
[2021-09-05 06:42] LABS: BUN Creatinine Ratio 15.1 (10-20); Calcium 7.5 mg/dl (8.5-10.1); Creatinine Clr Calc Pharmacy 145.8 ml/min; Est GFR (African American) 133.8 ml/min; Est GFR (Non-African American) 115.5 ml/min; Potassium 3.7 mmol/L (3.5-5.1)
[2021-09-05] MEDS: PANTOprazole 40 MG TAB PO SCH (09:26)
[2021-09-05] MEDS: ASPIRIN 81 MG CHEW PO SCH (09:27)
[2021-09-05] MEDS: VENLAFAXINE HCL 37.5 MG TAB PO SCH ×2 (09:27→20:50)
[2021-09-05] MEDS: ENOXAPARIN INJ 40 MG/0.4 ML SYR SQ SCH ×2 (09:28→20:48)
[2021-09-05] MEDS: NYSTATIN SUSP 500,000 U/5 ML UDC PO SCH ×3 (09:28→20:47)
[2021-09-05] MEDS: MULTI VIT W/MINERALS LIQUID 15 ML UDP NG SCH (09:29)
[2021-09-05] MEDS: DOCUSATE SODIUM/SENNA 50/8.6MG TAB PO SCH (09:29)
[2021-09-05] MEDS: POLYETHYLENE (MIRALAX) 17 GM PACK PO PRN (09:35)
--- NOTE | 2021-09-05 12:40 | Hospitalist Progress Note ---
Date of Service September 05, 2021 Assessment & Plan (1) Pneumothorax, right: (2) Acute respiratory failure with hypoxia: (3) Pneumonia due to 2019-nCoV: Plan: 45-year-old female with PMH of allergic rhinitis, MR, GERD, asthma came 08/20 with C/O shortness of breath. In the ED, her BP was low 60s/30s and was saturating 70% on room air. Following admission, she was managed for the following: #. Pneumonia due to 2019-nCoV: #. Pneumothorax, right: #. Acute respiratory failure with hypoxia: Secondary to COVID-19 pneumonia Intubated on 08/23. Complicated by spontaneous right pneumothorax s/p right chest tube on 08/25 Extubated to BIPAP on 08/29/21 Completed remdesivir and dexamethasone Leukocytosis resolved Cultures negative so far Right chest tube removed 09/02 Patient requiring minimal oxygen, wean as tolerated. Tolerating diet #. Asthma: home meds, under control #. UTI (urinary tract infection): E. Coli. Completed treatment with ceftriaxone #. Mitral valve prolapse: #. Anxiety: Takes venlafaxine regularly, which she continues. #. HTN (hypertension): On losartan at home. Monitor blood pressure #. GERD (gastroesophageal reflux disease): Cont PPI daily per home regimen. #. DVT prophylaxis: Lovenox Full Code Dispo- c/w PCU care. PT/OT recommending inpatient rehab, CM to assist with DC planning, can be discharged when accepted. CM Working on [facility]. #. Hand swelling. IV and arterial line has been removed. Improving. No erythema. USS right no DVT Admission and Anticipated Discharge Date Admission Date: August 19, 2021 Subjective Patient was sitting up in chair, ready for lunch, on 2 L oxygen, NAD, no acute events overnight. Patient denies any increased shortness of breath/chest randal n/belly pain/headache/other review of symptoms. Patient is stable to go, once placement available. Physical Exam Physical Exam: GENERAL: Alert and oriented x3. NAD, on 2 L. HEENT: No pallor, no icterus. Pupils equal, round and reactive to light. Oral mucosa moist. NECK: No JVD, no neck masses. HEART: S1 and S2 heard. Regular rate and rhythm. No murmur, no gallop. RESPIRATORY SYSTEM: Normal AP diameter. No accessory muscle use. No wheezing; bibasilar crackles appreciated ABDOMEN: Soft, bowel sounds present, nontender, no distention. CENTRAL NERVOUS SYSTEM: No facial droop. Speech is clear. Obeys simple commands. Moves extremities. EXTREMITIES: No edema, no erythema seen. Results & Data Results & Data ([facility]) Vital Signs (Past 12 Hours) Vital Signs Temp Pulse Pulse Resp BP Pulse Ox 09/05/21 12:03 36.6 C 102 H 20 119/75 94 09/05/21 10:02 71 09/05/21 08:13 36.3 C L 67 18 128/73 95 09/05/21 03:36 36.7 C 75 18 110/72 100
[2021-09-05 15:50] LABS: Hematocrit (blood only) 28.8 % (37-47)
[2021-09-06 05:52] LABS: Hematocrit (blood only) 26.6 % (37-47); Hemoglobin 8.2 g/dL (12.0-16.0); Mean Corpuscular Hemoglobin 24.3 pg (25-34); Mean Corpuscular Hgb Conc 30.8 g/dL (32-36); Mean Corpuscular Volume 78.7 fL (80-100); Mean Platelet Volume 9.6 fL (7.4-10.4); Platelet Count 435 K/uL (130-400); RDW Coefficient of Variation 17.5 % (11.5-14.5); RDW Standard Deviation 46.9 fL (36.4-46.3); Red Blood Count 3.38 M/uL (4.2-5.4); White Blood Count 7.07 K/uL (4.8-10.8)
[2021-09-06] MEDS: ASPIRIN 81 MG CHEW PO SCH (09:50)
[2021-09-06] MEDS: MULTI VIT W/MINERALS LIQUID 15 ML UDP NG SCH (09:50)
[2021-09-06] MEDS: DOCUSATE SODIUM/SENNA 50/8.6MG TAB PO SCH (09:50)
[2021-09-06] MEDS: NYSTATIN SUSP 500,000 U/5 ML UDC PO SCH ×3 (09:50→14:11)
[2021-09-06] MEDS: ENOXAPARIN INJ 40 MG/0.4 ML SYR SQ SCH (09:51)
[2021-09-06] MEDS: PANTOprazole 40 MG TAB PO SCH (09:51)
[2021-09-06] MEDS: VENLAFAXINE HCL 37.5 MG TAB PO SCH (09:51)
--- NOTE | 2021-09-06 13:10 | Discharge Summary ---
Date of Service September 06, 2021 Admission HPI Per Admitting Provider DATE OF ADMISSION: 08/19/2021. CHIEF COMPLAINT: COVID pneumonia, acute respiratory distress. HISTORY OF PRESENT ILLNESS: This is a 45-year-old female with past medical history significant for allergic rhinitis, mitral regurgitation, GERD, asthma, comes because of shortness of breath. When she came to the ER, her blood pressure was low, 60/30s and she was 70% on room air, but right now she is placed on OxyMask and improvement in oxygen saturation to low 90s and blood pressure improved .currently she is on BiPAP. Saturating okay. CT chest showed no PE, but showed multifocal pneumonia. The patient says She started developing symptoms last Wednesday with fever and cough, initially diagnosed with COVID on Wednesday and last 2 days ago, she developed shortness of breath, which prompted her to come to the ER, also having fevers at home, body aches, weakness, poor appetite, loss of sense of smell and taste. Denies any headache, no neck pain, no back pain. Has no abdominal discomfort and but having diarrhea. Denies blood in stools or black stools. No leg pains. No swelling in the legs. Normal bladder movements. No hematuria. Has some congestion, but no runny nose, no sore throat. No blurred visions. ALLERGIES: CEFUROXIME. PAST MEDICAL HISTORY: As mentioned above. PAST SURGICAL HISTORY: , ligation of oviducts. MEDICATIONS: The patient is on albuterol 1 puff inhalation q. 4 hours p.r.n., aspirin 81 mg p.o. daily, Breo Ellipta one inhalation daily, Cozaar 25 mg p.o. daily, omeprazole 20 mg p.o. a.m., Effexor 75 mg p.o. daily. FAMILY HISTORY: Significant for mother has hypertension. Uncle has stroke. Paternal grandfather had colon cancer. Maternal grandfather has heart disorder. Paternal grandmother had CHF. SOCIAL HISTORY: . No smoking. Alcohol occasional. No drug use. REVIEW OF SYSTEMS: As per HPI. Rest of review systems is negative. Admission Exam Per Admitting Provider GENERAL: The patient is of moderate build, saturating okay on BiPAP. VITAL SIGNS: Temperature 36.6, pulse 91, respiratory rate 130s, blood pressure 136/79, oxygen 94% on BiPAP. HEENT: Head is atraumatic. Pupils equal, round and reactive to light. NECK: No JVD. No neck masses. CARDIOVASCULAR: S1 and S2 heard. Regular rate and rhythm. No murmurs. RESPIRATORY SYSTEM: Normal AP diameter. No accessory muscle use. Mild bilateral rales at the lower lobes. No obvious wheezing heard. ABDOMEN: Soft, bowel sounds present, nontender, no distention. CENTRAL NERVOUS SYSTEM: Cranial nerves II-XII grossly intact, nonfocal. EXTREMITIES: No edema, no erythema. Principal Diagnosis Covid pneumonia Acute hypoxic respiratory failure Discharge Exam GENERAL: Alert and oriented x3. NAD, on 2 L. HEENT: No pallor, no icterus. Pupils equal, round and reactive to light. Oral mucosa moist. NECK: No JVD, no neck masses. HEART: S1 and S2 heard. Regular rate and rhythm. No murmur, no gallop. RESPIRATORY SYSTEM: Normal AP diameter. No accessory muscle use. No wheezing; bibasilar crackles appreciated ABDOMEN: Soft, bowel sounds present, nontender, no distention. CENTRAL NERVOUS SYSTEM: No facial droop. Speech is clear. Obeys simple commands. Moves extremities. EXTREMITIES: No edema, no erythema seen. Discharge Data Allergies Allergy/AdvReac Type Severity Reaction Status Date / Time No Known Allergies Allergy Unknown Verified 08/19/21 21:35 cefuroxime AdvReac Mild HEADACHE Verified 08/19/21 21:35 Consultations 08/19/21 22:44 ED Decision to Admit Stat 08/20/21 08:00 Consult Pulmonology Routine 08/22/21 08:57 Consult [facility]aser Stat Ordered Studies 08/19/21 21:02 CT angio chest PE protocol Urgent 09/01/21 10:30 US venous doppler UE RT Routine Hospital Course (1) Pneumothorax, right: (2) Acute respiratory failure with hypoxia: (3) Pneumonia due to 2019-nCoV: 45-year-old female with PMH of allergic rhinitis, MR, GERD, asthma came 08/20 with C/O shortness of breath. In the ED, her BP was low 60s/30s and was saturating 70% on room air. Following admission, she was managed for the following: #. Pneumonia due to 2019-nCoV: #. Pneumothorax, right: #. Acute respiratory failure with hypoxia: Secondary to COVID-19 pneumonia Intubated on 08/23. Complicated by spontaneous right pneumothorax s/p right chest tube on 08/25 Extubated to BIPAP on 08/29/21 Completed remdesivir and dexamethasone Leukocytosis resolved Cultures negative Right chest tube removed 09/02 Patient requiring minimal oxygen, wean as tolerated. Tolerating diet Continue with incentive spirometry and flutter valve upon discharge #. Asthma: home meds, under control #. UTI (urinary tract infection): E. Coli. Completed treatment with ceftriaxone #. Mitral valve prolapse: #. Anxiety: Takes venlafaxine regularly, which she continues. #. HTN (hypertension): On losartan at home. Monitor blood pressure #. GERD (gastroesophageal reflux disease): Cont PPI daily per home regimen. #. DVT prophylaxis: Lovenox while inpatient Full Code Patient discharged to acute rehab with following instruction at the time discharge: Follow-up with your primary care physician within 1 week time. Continue with incentive spirometry and flutter valve while awake as discussed at bedside. Establish a lung doctor and follow-up with lung doctor in 1 to 2 months time. Take medications as prescribed. Total Time Total Time Spent Total Time Spent (In Minutes): 45 Discharge Plan Discharge Items Patient Disposition: Transfer Inpatient Rehab Fac Reason For Visit: SHORTNESS OF BREATH Discharge Diagnosis: COVID-19 positive test (U07.1, COVID-19) with Acute Pneumonia (J12.89, Other viral pneumonia) (If respiratory failure or sepsis present, add as separate assessment) Acute hypoxic respiratory failure Activity: Per Instructions section Activity Comment: Gradually increase your activity towards your previous level. Lifting: Gradually increase as tolerated Non-emergency contact: Primary Care Provider Call non-emergency contact if: you have any medication questions, your symptoms worsen and your temperature is above 101 Follow-up/Referrals: Glenn Herrera MD [Primary Care Provider] - Diet: Heart Healthy Addtl Attending Provider Instructions: Follow-up with your primary care physician within 1 week time. Continue with incentive spirometry and flutter valve while awake as discussed at bedside. Establish a lung doctor and follow-up with lung doctor in 1 to 2 months time. Take medications as prescribed. Pending Studies at Discharge: No Stand-Alone Forms: [employer] Skilled Items Patient informed of condition?: Yes DNR: No Discharge Level of Care: Acute rehab Communicable Disease: No Discharge Prognosis: Improving Lines: None Urinary Catheter: No Medications and DC Order Prescriptions: Continued losartan [Cozaar] 25 mg tablet 25 mg PO QAM RF: 0 albuterol sulfate [ProAir HFA] 90 mcg/actuation HFA aerosol inhaler 1 inh INHALATION Q4H PRN (Reason: Shortness Of Breath Or Wheezing) RF: 0 aspirin [Aspirin Low Dose] 81 mg Tablet,Delayed Release (Dr/Ec) 81 mg PO QAM RF: 0 omeprazole 20 mg Tablet,Delayed Release (Dr/Ec) 20 mg PO QAM RF: 0 Breo Ellipta 100-25 mcg/dose blister with device 1 inh INHALATION QAM RF: 0 venlafaxine [Effexor XR] 75 mg capsule,extended release 24hr 75 mg PO QAM RF: 0 Discharge Orders: Discharge Order (Routine); Ordered 09/06/21 Ordered By: Gigi Champion Admission Data Admit Date/Time: 08/19/21 23:45 Attending Provider: Gigi Champion Admit Provider: Naveed Anderson Primary Care Provider: Glenn Herrera Other Providers: Felipa Perry ; Naveed Anderson ; Huang Ridley ; Silver Isaac ; [facility] Other Interventions: Discharge Summary Assessment (RN) Last Done: 09/06/21 14:18
[2021-09-06] MEDS ORDERED: ROCURONIUM BROMIDE 10 MG/ML 5 ML VIAL IV ONE (13:54)
[2021-09-06] MEDS ORDERED: ETOMIDATE 2 MG/ML 20 ML VIAL IV ONE (13:54)
[2021-09-06] MEDS ORDERED: SUCCINYLCHOLINE CHLORIDE 20 MG/ML 10 ML VIAL IV ONE (13:54)
== END 2021-09-06 15:10 | DRG 207 ==
LOC: ED 20:43 → SUATTDRO 23:45 → 2S 23:45 → 2E 08-20 23:49
DX: F41.9 Anxiety disorder, unspecified; J96.00 Acute respiratory failure, unspecified whether with hypoxia or hypercapnia; Z99.81 Dependence on supplemental oxygen; Z82.49 Family history of ischemic heart disease and other diseases of the circulatory system; B96.20 Unspecified Escherichia coli [E. coli] as the cause of diseases classified elsewhere; U07.1 COVID-19; J12.82 Pneumonia due to coronavirus disease 2019; I34.1 Nonrheumatic mitral (valve) prolapse; I95.9 Hypotension, unspecified; J93.82 Other air leak; Z79.82 Long term (current) use of aspirin; N39.0 Urinary tract infection, site not specified; J45.909 Unspecified asthma, uncomplicated; K21.9 Gastro-esophageal reflux disease without esophagitis; E87.6 Hypokalemia; J93.0 Spontaneous tension pneumothorax